=== PATIENT | male | born 1925 | race Caucasian/White ===

== ENCOUNTER → 2016-07-17 | Outpatient (CLI) | payer MEDICARE ==
--- NOTE | 2016-07-17 11:55 | US ---
EXAMINATION TYPE: US venous doppler duplex LE LT DATE OF EXAM: 07/17/2016 11:41 AM COMPARISON: NONE CLINICAL HISTORY: R60.9 EDEMA. Edema left ankle SIDE PERFORMED: Left TECHNIQUE: The lower extremity deep venous system is examined utilizing real time linear array sonog jordon with graded compression, doppler sonography and color-flow sonography. VESSELS IMAGED: External Iliac Vein (EIV) Common Femoral Vein Deep Femoral Vein Greater Saphenous Vein * Femoral Vein Popliteal Vein Small Saphenous Vein * Proximal Calf Veins (* superficial vessels) Left Leg: Negative for DVT. Large amount of plaque noted in arteries. IMPRESSION: 1. No diagnostic evidence of DVT. 2. Findings suggest atherosclerotic disease of the visualized arterial system which is limited. Corre late clinically and with arterial ultrasound as clinically warranted.
== END ==
LOC: RADUSWWP 10:28
PROVIDERS: ATTEND Family Medicine
DX: R60.9 Edema, unspecified (principal)

== ENCOUNTER 2016-12-23 08:38 | Emergency (ER) | payer MEDICARE ==
[2016-12-23 08:53] VITALS: TEMP 97.1
--- NOTE | 2016-12-23 09:14 | ED ---
Fall HPI - General Chief Complaint: Fall Stated Complaint: Fall Time Seen by Provider: 12/23/16 08:55 Source: patient, family, RN notes reviewed Mode of arrival: wheelchair Limitations: no limitations - History of Present Illness Initial Comments: This a 89-year-old male presents emergency Department with chief complaint of fall, left rib pain. Patient states he fell on Sunday and fell onto a chair. Patient states that he is able to get up on his own he had no head injury no LOC. Patient states he did not have much pain at seem to bother him and he fell use just sore because he initially fell. Patient states that same pain since Sunday so he figured he should have some x-rays. Patient denies chest pain, shortness breath, headache or dizziness. Patient states that he has trouble with his ambulation normally and states frequent falls are usual for him. - Related Data Home Medications Medication Instructions Recorded Confirmed Aspirin 325 mg PO DAILY 06/11/13 07/05/15 Metoprolol Tartrate [Lopressor] 50 mg PO DAILY 06/11/13 07/05/15 Simvastatin [Zocor] 80 mg PO HS 06/11/13 07/05/15 Tamsulosin [Flomax] 0.4 mg PO DAILY 06/11/13 07/05/15 Previous Rx's Medication Instructions Recorded traMADol HCl [Ultram] 50 mg PO Q6H PRN #20 tab 12/23/16 Allergies Allergy/AdvReac Type Severity Reaction Status Date / Time No Known Allergies Allergy Verified 12/23/16 08:52 Review of Systems ROS Statement: Those systems with pertinent positive or pertinent negative responses have been documented in the HPI. ROS Other: All systems not noted in ROS Statement are negative. Past Medical History Past Medical History: Atrial Fibrillation, Hypertension, Myocardial Infarction ( [place]) History of Any Multi-Drug Resistant Organisms: None Reported Past Surgical History: Heart Catheterization, Tonsillectomy Additional Past Surgical History / Comment(s): aortic repair Past Psychological History: No Psychological Hx Reported Smoking Status: Former smoker Past Alcohol Use History: Occasional Past Drug Use History: None Reported General Exam Limitations: no limitations General appearance: alert, in no apparent distress Head exam: Present: atraumatic, normocephalic, normal inspection Neck exam: Present: normal inspection, full ROM. Absent: tenderness, meningismus, lymphadenopathy Respiratory exam: Present: normal lung sounds bilaterally, chest wall tenderness (Mild tenderness to the left anterior lateral ribs). Absent: respiratory distress, wheezes, rales, rhonchi, stridor Cardiovascular Exam: Present: regular rate, normal rhythm, normal heart sounds. Absent: systolic murmur, diastolic murmur, rubs, gallop, clicks GI/Abdominal exam: Present: soft, normal bowel sounds. Absent: distended, tenderness, guarding, rebound, rigid Course Vital Signs 12/23/16 08:44 Temperature 97.1 F L Pulse Rate 47 L Respiratory 16 Rate Blood Pressure 165/70 O2 Sat by Pulse 99 Oximetry Medical Decision Making - Medical Decision Making 89-year-old male presented for a fall. X-ray does not show an acute fracture. Patient is comfortable with discharge at this time. Return parameters were discussed. Disposition Clinical Impression: Fall, Contusion of rib on left side Disposition: HOME SELF-CARE Condition: Stable Instructions: Rib Contusion (ED) Additional Instructions: Please return to the Emergency Department if symptoms worsen or any other concerns. Prescriptions: traMADol HCl [Ultram] 50 mg PO Q6H PRN #20 tab PRN Reason: Pain Referrals: Franklin Ruano MD [Primary Care Provider] - 1-2 days Time of Disposition: 10:15
--- NOTE | 2016-12-23 09:36 | XR ---
EXAMINATION TYPE: XR ribs LT w pa chest x-ray , 5 VIEWS DATE OF EXAM ORDERED: 12/23/2016 HISTORY: Pain. COMPARISON: Previous chest x-ray dated 05/12/2013. FINDINGS: The heart is mildly prominent. There are senescent changes throughout the lungs. There is no pneumonia or edema. No definite pleural fluid is seen. There hypertrophic changes in the left AC joint. No displaced rib fracture is seen. No pneumothorax i s evident. IMPRESSION: 1. MILD CARDIOMEGALY. 2. I DO NOT SEE EVIDENCE OF A DISPLACED RIB FRACTURE AT THIS TIME.
[2016-12-23 10:20] VITALS: BP 134/66; PULSE 52; RESP 15
== END 2016-12-23 10:23 | disposition home or self-care (01) ==
LOC: EC 08:38
DX: S20.212A Contusion of left front wall of thorax, initial encounter (principal); I48.91 Unspecified atrial fibrillation; I25.2 Old myocardial infarction; I10 Essential (primary) hypertension; Z87.891 Personal history of nicotine dependence; Z79.82 Long term (current) use of aspirin; Z79.899 Other long term (current) drug therapy; W07.XXXA Fall from chair, initial encounter
CPT/HCPCS: 99283

== ENCOUNTER 2017-04-14 08:56 | Inpatient (IN) | payer MEDICARE ==
[2017-04-14] MEDS ORDERED: ONDANSETRON 4 MG/2 ML VIAL IVP STA (09:00)
[2017-04-14] MEDS ORDERED: SODIUM CHLORIDE 0.9% 1,000 ML IV STA (09:00)
[2017-04-14] MEDS ORDERED: PANTOPRAZOLE 40 MG/10 ML VIAL IVP ONE (09:01)
--- NOTE | 2017-04-14 09:15 | ED ---
General Adult HPI - General Chief complaint: GI Bleed Stated complaint: GI Bleed Time Seen by Provider: 04/14/17 09:00 Source: patient, EMS, RN notes reviewed, old records reviewed Mode of arrival: EMS Limitations: no limitations - History of Present Illness Initial comments: 89-year-old male presents with vomiting. Patient had 3-4 episodes of vomiting prior to arrival. This was coffee ground. Patient has past medical history of congestive heart failure and atrial fibrillation. He has noted some worsening lower extremity swelling. He is also noted dark stools over the past several days. According to the patient he is not currently on any anticoagulation for his atrial fibrillation. He is taking aspirin, and naproxen for pain. No history of EtOH. Patient denies any chest pain or abdominal pain. Denies shortness of breath. Denies fever or chills. - Related Data Home Medications Medication Instructions Recorded Confirmed Aspirin 325 mg PO DAILY 06/11/13 07/05/15 Metoprolol Tartrate [Lopressor] 50 mg PO DAILY 06/11/13 07/05/15 Simvastatin [Zocor] 80 mg PO HS 06/11/13 07/05/15 Tamsulosin [Flomax] 0.4 mg PO DAILY 06/11/13 07/05/15 Previous Rx's Medication Instructions Recorded traMADol HCl [Ultram] 50 mg PO Q6H PRN #20 tab 12/23/16 Allergies Allergy/AdvReac Type Severity Reaction Status Date / Time No Known Allergies Allergy Verified 12/23/16 08:52 Review of Systems ROS Statement: Those systems with pertinent positive or pertinent negative responses have been documented in the HPI. ROS Other: All systems not noted in ROS Statement are negative. Past Medical History Past Medical History: Atrial Fibrillation, Hypertension, Myocardial Infarction ( [place]) History of Any Multi-Drug Resistant Organisms: None Reported Past Surgical History: Heart Catheterization, Tonsillectomy Additional Past Surgical History / Comment(s): aortic repair Past Psychological History: No Psychological Hx Reported Smoking Status: Former smoker Past Alcohol Use History: Occasional Past Drug Use History: None Reported General Exam Limitations: no limitations General appearance: alert, in no apparent distress Head exam: Present: atraumatic, normocephalic Eye exam: Present: normal appearance ENT exam: Present: normal exam, other (Dark vomit and oral cavity and LIPS) Neck exam: Present: normal inspection. Absent: tenderness, meningismus Respiratory exam: Present: normal lung sounds bilaterally. Absent: respiratory distress Cardiovascular Exam: Present: regular rate, irregular rhythm GI/Abdominal exam: Present: soft. Absent: distended, tenderness, guarding Rectal exam: Present: normal rectal tone, heme (+) stool, black stool Extremities exam: Present: pedal edema (2+) Back exam: Present: normal inspection, full ROM Neurological exam: Present: alert, oriented X3, CN II-XII intact. Absent: motor sensory deficit Psychiatric exam: Present: normal affect, normal mood Skin exam: Present: warm, dry, intact, pallor. Absent: cyanosis Course Vital Signs 04/14/17 04/14/17 04/14/17 09:04 09:39 10:08 Temperature 98.1 F Pulse Rate 60 71 89 Respiratory 20 18 18 Rate Blood Pressure 104/58 101/55 90/52 O2 Sat by Pulse 95 97 98 Oximetry 04/14/17 10:33 Temperature Pulse Rate 71 Respiratory 18 Rate Blood Pressure 84/48 O2 Sat by Pulse 97 Oximetry EKG Findings - EKG Comments: EKG Findings:: EKG shows undetermined rhythm, likely atrial fibrillation with PVC incomplete right bundle, ventricular rate of 88 QRS duration 112, QTC 445 Medical Decision Making - Medical Decision Making 89-year-old male presenting with coffee-ground emesis. Patient has melanotic stool on rectal exam. He is on aspirin and has been taking naproxen. On examination, patient is pale, blood pressure 85-95 systolic. Laboratory studies are obtained, initial hemoglobin 6.1, no baseline for comparison. She is transfused 2 units and given IV Protonix. Patient has significant laboratory abnormalities including lactic acidosis 5.3 likely secondary to hemorrhagic shock, BUN elevated at 108 consistent with GI bleed, creatinine of 2.87 with no known baseline for comparison. Although patient has borderline hypotensive, he is total body fluid overloaded, lactic acid secondary to hemorrhagic shock, IV hydration will be given in moderation, awaiting blood transfusion, to minimize dilution coagulopathy. Case is discussed with patient's primary care physician, Dr. Ruano and will evaluate records to determine CODE STATUS, at this time patient will be full code until otherwise noted. Case discussed with Dr. Iniguez, she recommends transfusion, continue Protonix, and NPO. Patient will be placed in the ICU for close observation, repeat hemoglobin will be obtained at [address] Paulette sheppard. Diagnosis: Suspect upper GI bleed, hematemesis, melena, lactic acidosis secondary to hemorrhagic shock, acute renal failure. - Lab Data Result diagrams: 04/14/17 09:00 04/14/17 09:00 Lab Results 04/14/17 04/14/17 04/14/17 Range/Units 09:00 09:00 09:00 WBC 10.3 (3.8-10.6) k/uL RBC 1.90 L (4.30-5.90) m/uL Hgb 6.1 L* (13.0-17.5) gm/dL Hct 18.7 L* (39.0-53.0) % MCV 98.8 (80.0-100.0) fL MCH 32.2 (25.0-35.0) pg MCHC 32.6 (31.0-37.0) g/dL RDW 15.6 H (11.5-15.5) % Plt Count 135 L (150-450) k/uL Neutrophils % 83 % Lymphocytes % 6 % Monocytes % 7 % Eosinophils % 0 % Basophils % 0 % Neutrophils # 8.6 H (1.3-7.7) k/uL Lymphocytes # 0.6 L (1.0-4.8) k/uL Monocytes # 0.8 (0-1.0) k/uL Eosinophils # 0.0 (0-0.7) k/uL Basophils # 0.0 (0-0.2) k/uL Macrocytosis Slight PT (9.0-12.0) sec INR (<1.2) APTT (22.0-30.0) sec Sodium 144 (137-145) mmol/L Potassium 4.9 (3.5-5.1) mmol/L Chloride 105 (98-107) mmol/L Carbon Dioxide 23 (22-30) mmol/L Anion Gap 16 mmol/L BUN 108 H* (9-20) mg/dL Creatinine 2.87 H (0.66-1.25) mg/dL Est GFR (CKD-EPI)AfAm 22 (>60 ml/min/1.73 sqM) Est GFR (CKD-EPI)NonAf 19 (>60 ml/min/1.73 sqM) Glucose 119 H (74-99) mg/dL Plasma Lactic Acid Robin (0.7-2.0) mmol/L Calcium 9.1 (8.4-10.2) mg/dL Magnesium 2.1 (1.6-2.3) mg/dL Total Bilirubin 0.5 (0.2-1.3) mg/dL AST 24 (17-59) U/L ALT 31 (21-72) U/L Alkaline Phosphatase 65 (38-126) U/L Total Creatine Kinase 96 (55-170) U/L CK-MB (CK-2) 3.9 H* (0.0-2.4) ng/mL CK-MB (CK-2) Rel Index 4.1 Troponin I 0.038 H* (0.000-0.034) ng/mL Total Protein 5.2 L (6.3-8.2) g/dL Albumin 2.6 L (3.5-5.0) g/dL Lipase 332 H (23-300) U/L Stool Occult Blood (Negative) 04/14/17 04/14/17 04/14/17 Range/Units 09:00 09:00 09:00 WBC (3.8-10.6) k/uL RBC (4.30-5.90) m/uL Hgb (13.0-17.5) gm/dL Hct (39.0-53.0) % MCV (80.0-100.0) fL MCH (25.0-35.0) pg MCHC (31.0-37.0) g/dL RDW (11.5-15.5) % Plt Count (150-450) k/uL Neutrophils % % Lymphocytes % % Monocytes % % Eosinophils % % Basophils % % Neutrophils # (1.3-7.7) k/uL Lymphocytes # (1.0-4.8) k/uL Monocytes # (0-1.0) k/uL Eosinophils # (0-0.7) k/uL Basophils # (0-0.2) k/uL Macrocytosis PT 12.1 H (9.0-12.0) sec INR 1.3 H (<1.2) APTT 21.5 L (22.0-30.0) sec Sodium (137-145) mmol/L Potassium (3.5-5.1) mmol/L Chloride (98-107) mmol/L Carbon Dioxide (22-30) mmol/L Anion Gap mmol/L BUN (9-20) mg/dL Creatinine (0.66-1.25) mg/dL Est GFR (CKD-EPI)AfAm (>60 ml/min/1.73 sqM) Est GFR (CKD-EPI)NonAf (>60 ml/min/1.73 sqM) Glucose (74-99) mg/dL Plasma Lactic Acid Robin 5.3 H* (0.7-2.0) mmol/L Calcium (8.4-10.2) mg/dL Magnesium (1.6-2.3) mg/dL Total Bilirubin (0.2-1.3) mg/dL AST (17-59) U/L ALT (21-72) U/L Alkaline Phosphatase (38-126) U/L Total Creatine Kinase (55-170) U/L CK-MB (CK-2) (0.0-2.4) ng/mL CK-MB (CK-2) Rel Index Troponin I (0.000-0.034) ng/mL Total Protein (6.3-8.2) g/dL Albumin (3.5-5.0) g/dL Lipase (23-300) U/L Stool Occult Blood Positive (Negative) Critical Care Time Critical Care Time: Yes Total Critical Care Time: 95 Disposition Clinical Impression: Melena, Gastrointestinal hemorrhage due to nonsteroidal antiinflammatory drug, Hemorrhagic shock, Lactic acidosis Disposition: ADMITTED IP TO THIS [facility] Condition: Serious Referrals: Franklin Ruano MD [Primary Care Provider] - 1-2 days Decision to Admit Reason: Admit from EC Decision Date: 04/14/17 Decision Time: 10:39
[2017-04-14 09:32] LABS: Basophils % (A) 0 %; Eosinophils % (A) 0 %; Lymphocytes # (A) 0.6 k/uL (1.0-4.8); Lymphocytes % (A) 6 %; MCH 32.2 pg (25.0-35.0); MCHC 32.6 g/dL (31.0-37.0); MCV 98.8 fL (80.0-100.0); Macrocytosis Slight; Mean Platelet Volume 10.8; Monocytes # (A) 0.8 k/uL (0-1.0); Monocytes % (A) 7 %; Neutrophils # (A) 8.6 k/uL (1.3-7.7); Neutrophils % (A) 83 %; Platelet Count 135 k/uL (150-450); RDW 15.6 % (11.5-15.5); WBC 10.3 k/uL (3.8-10.6)
[2017-04-14 09:34] LABS: HCT 18.7 % (39.0-53.0); HGB 6.1 gm/dL (13.0-17.5)
--- NOTE | 2017-04-14 09:46 | XR ---
EXAMINATION TYPE: XR chest 1V portable DATE OF EXAM: 04/14/2017 COMPARISON: Chest x-ray December 23, 2016. HISTORY: Hemoptysis and chest pain. TECHNIQUE: Single AP portable frontal upright view of the chest is obtained. FINDINGS: There is chronic interstitial changes bilaterally redemonstrated without suspicious new fo georgie air space opacity, pleural effusion, or pneumothorax seen. The cardiac silhouette size is stable and upper limits of normal without sclerotic and ectatic thoracic aorta. Multilevel spurring and dis c space narrowing in the visualized spine is present. Degenerative change both shoulders is redemonst rated. IMPRESSION: Low lung volumes with chronic interstitial fibrosis bilaterally. No suspicious acute pu lmonary process.
[2017-04-14 09:51] LABS: INR 1.3 (<1.2); Partial Thromboplastin Time 21.5 sec (22.0-30.0); Prothrombin Time 12.1 sec (9.0-12.0)
[2017-04-14 10:16] LABS: Albumin 2.6 g/dL (3.5-5.0); Calcium 9.1 mg/dL (8.4-10.2); Magnesium 2.1 mg/dL (1.6-2.3); Potassium 4.9 mmol/L (3.5-5.1); Total Bilirubin 0.5 mg/dL (0.2-1.3); Total Protein 5.2 g/dL (6.3-8.2)
[2017-04-14 10:28] LABS: Creatine Kinase MB 3.9 ng/mL (0.0-2.4); Troponin I 0.038 ng/mL (0.000-0.034)
[2017-04-14] MEDS ORDERED: NALOXONE 0.4 MG/ML 1 ML VIAL IV PRN (10:28)
[2017-04-14 11:30] LABS: Basophils % (A) 0 %; Eosinophils % (A) 0 %; Lymphocytes # (A) 0.6 k/uL (1.0-4.8); Lymphocytes % (A) 6 %; MCHC 32.2 g/dL (31.0-37.0); MCV 99.6 fL (80.0-100.0); Macrocytosis Slight; Mean Platelet Volume 10.5; Monocytes # (A) 0.6 k/uL (0-1.0); Monocytes % (A) 6 %; Neutrophils # (A) 8.3 k/uL (1.3-7.7); Neutrophils % (A) 86 %; Platelet Count 119 k/uL (150-450); RBC 1.63 m/uL (4.30-5.90); RDW 15.9 % (11.5-15.5); WBC 9.7 k/uL (3.8-10.6)
[2017-04-14 11:31] LABS: HCT 16.3 % (39.0-53.0); HGB 5.2 gm/dL (13.0-17.5)
--- NOTE | 2017-04-14 13:33 | CONS ---
CONSULTATION REQUESTING PHYSICIAN: Dr. Ruano REASON FOR CONSULTATION: Acute GI bleed. HISTORY OF PRESENT ILLNESS: The patient is an 89-year-old white male who was admitted to the emergency room complaining of multiple episodes of coffee-ground emesis that started early this morning. He became extremely weak and tired. He came into the emergency room and subsequently admitted to the intensive care unit. He was presently on hold in ICU. He also apparently had some dark colored stools for the last few days. In the ER, had a hemoglobin of 6.1 g/dL. He never had these symptoms in the past. He reports no abdominal pain. No nausea, vomiting. Has been taking aspirin and naproxen for degenerative joint disease. No prior history of peptic ulcer disease. PAST MEDICAL HISTORY: Significant for atrial fibrillation but not on anticoagulation, history of hypertension, history of coronary artery disease, status post IN in the past. PAST SURGICAL HISTORY: Tonsillectomy, cardiac catheterization. MEDICATIONS: At home include aspirin, Zocor, Flomax, Lopressor, naproxen. ALLERGIES: None. SOCIAL HISTORY: Former smoker. No alcohol use. FAMILY HISTORY: Unremarkable. REVIEW OF SYSTEMS: CARDIOPULMONARY: He denies any chest pain or shortness of breath. GENITOURINARY: No dysuria or hematuria. MUSCULOSKELETAL: Chronic back pain. NEUROLOGY: Unremarkable. PSYCHIATRIC: Unremarkable. ENT/VISION: Unremarkable. CONSTITUTIONAL: No recent weight loss. No fever, chills, night sweats. PHYSICAL EXAMINATION: He appears comfortable. No apparent distress. Vital signs are stable. Blood pressure is 90/52, pulse rate 89, temperature 98.8. HEENT: Examination unremarkable. Conjunctivae pink. Sclerae anicteric. Oral cavity no lesions. NECK: No JVD or lymph node enlargement. Chest was clear to auscultation. HEART: Regular rate and rhythm. Abdomen is soft. It was nontender, nondistended. Midline scar noted from abdominal aortic aneurysm repair many years ago. EXTREMITIES: No pedal edema. SKIN: No rashes. NEURO: He is alert and oriented x3. No focal deficits. LAB: WBC was 10.3, hemoglobin 6.1, and repeat hemoglobin is 5.2, platelets 135. INR 1.3. AST and ALT within normal limits. BUN is 108, creatinine 2.87. Lactic acid is 5.3. Troponin 0.03. IMPRESSION: 1. The patient presents with multiple episodes of coffee-ground emesis and dark colored stools for the last few days duration. He is noted to have a hemoglobin of 5.1 g/dL. He has been taking naproxen for the last 6 months for degenerative joint disease, most likely we are dealing with peptic ulcer disease. 2. History of abdominal aortic aneurysm repair several years ago. 3. History of atrial fibrillation on aspirin, which is currently on hold. RECOMMENDATIONS: 1. Agree with blood transfusion. 2. IV Protonix 40 mg q.12 hours. 3. Keep him n.p.o. 4. We will plan on proceeding with an upper endoscopy tomorrow morning unless he has numbness is symptoms worsen and we will consider doing it on an emergency basis. 5. CBC every 6 hours and follow him closely during his hospital stay. Thank you for this consultation. MARIXA / TRINITY: [id number] /
[2017-04-14] MEDS ORDERED: SODIUM CHLORIDE 0.9% 1,000 ML IV ONE ×2 (13:52→17:48)
[2017-04-14 14:21] LABS: Hypochromasia Slight; MCH 31.4 pg (25.0-35.0); MCHC 30.9 g/dL (31.0-37.0); MCV 101.6 fL (80.0-100.0); Macrocytosis Slight; Mean Platelet Volume 11.5; Platelet Count 107 k/uL (150-450); RBC 1.49 m/uL (4.30-5.90); RDW 15.9 % (11.5-15.5); WBC 10.9 k/uL (3.8-10.6)
[2017-04-14 14:24] LABS: HGB 4.7 gm/dL (13.0-17.5)
[2017-04-14 14:25] LABS: HCT 15.2 % (39.0-53.0)
--- NOTE | 2017-04-14 14:25 | HP ---
HISTORY AND PHYSICAL CHIEF COMPLAINT: Throwing up blood for several hours. HISTORY OF PRESENT ILLNESS: This is another admission for this 89-year-old white male. He has a long-standing history of hypertension and general debility and failure to thrive. He was in the office earlier this week with some increased swelling and pallor. He has had mild renal failure, and his BUN and creatinine were elevated and he was anemic. He was started on diuretics, but apparently he did not diurese a great deal. His left for a vacation in [place] and he got up this morning and started throwing up blood. He has also had melena. He came to the emergency room, where his hemoglobin was around 5. He is compos mentis, but at the present time he is a little bit lethargic. He denies pain. REVIEW OF SYSTEMS: He is not having any chest pain, abdominal pain, etc. Past medical history, family history, and personal and social histories reveal that he has NO ALLERGIES. He is on: 1. Lasix 40 mg daily. 2. Amlodipine 5 mg daily. 3. Atorvastatin 80 at bedtime. 4. Aspirin 81 mg a day. 5. Flomax 0.4 once a day. 6. Vitamin D 1000 units a day. He has had a past history of carcinoma of the prostate and coronary artery disease. He also has a history of atrial fibrillation. Surgically in the past he has had an aortic repair, lithotripsy and a T&A. He does not smoke or drink. PHYSICAL EXAMINATION: At the present time his systolic is 102. When he came in he was running a systolic of 80. Pulse is 72 and respirations are 32. In general he appeared to be pale and slightly lethargic, but oriented. Head, ears, eyes, nose, mouth and throat were normal except for some blood in the mouth. Chest demonstrated breath sounds on both sides. Cardiac exam demonstrated what sounded like sinus rhythm; no murmurs. S3 or S4 could not be heard. Abdomen is soft and nontender without any masses. Extremities demonstrated mild edema. Neurologically, other than being a little bit lethargic, he is intact. He is admitted to the hospital with the diagnoses: 1. Upper gastrointestinal hemorrhage. 2. Blood loss anemia. 3. Renal failure. 4. Hypertension. 5. Carcinoma of the prostate. 6. Lactic acidosis. PLAN: 1. Bed rest. 2. IV fluids. 3. Transfuse. 4. Consult with Intensive Medicine and Gastroenterology. 5. Our office records indicated that he wanted to be DNR, but when approached today he stated, "Let's wait until my gets back into town.". MARIXA / TRINITY: [id number] /
[2017-04-14 17:09] LABS: Glucose,Whole Blood 149 mg/dL (75-99)
--- NOTE | 2017-04-14 17:16 | P.CNPUL ---
History of Present Illness Consult date: 04/14/17 Chief complaint: Upper GI bleeding History of present illness: 89-year-old male patient, known history of congestion heart failure, chronic renal failure, chronic atrial fibrillation who has been taking aspirin and nonsteroidal anti-inflammatory medication outpatient basis. The patient came into the emergency department with episodes of hematemesis and the patient vomited bright red blood around 3-4 times prior to his arrival. In the emergency department he had 2-3 more episodes. The patient was taken apparently aspirin and Naprosyn. He is denying any previous history of alcoholism. He admitted to have some dark stools over the past few days. No chest pain. No syncope. He was feeling increasingly weak and tired. He has chronic lower extremity edema. No previous episodes of GI bleed. The patient was seen in the MRSA problem by gastroenterology. His initial hemoglobin was 6.1 and subsequently dropped down to 4.7. His platelet count was at 135 and dropped to 107. Correlation profile is within normal. The patient is prerenal with a BUN of 108 and creatinine of 2.8. Lipase level was apparently on 32. Lactic acid level was at 5.3 and is currently down to 2.8. Blood was ordered however there has been difficulty in obtaining the right match due to blood compatibility. Ultimately, 2 units of packed RBC were found to be available and the patient is currently getting his first unit. He got moved to the intensive care unit. He is also on IV fluids. [facility] that the patient may get overloaded with fluids. He was placed only on 75 mL an hour. I'm going to give him at least 2-3 L of bolus immediately in the ICU. He was tachycardic in the MRSA problem and the heart rate has slowed down. Most recent blood pressures 120/65. He has 2 peripheral IV lines. The patient was kept on IV Protonix. He is known to have also abdominal aortic aneurysm that has been repaired many years back. He has chronic atrial fibrillation as mentioned. Review of Systems Constitutional: Reports fatigue, Reports weakness Eyes: denies blurred vision, denies bulging eye, denies decreased vision Ears: deny: decreased hearing, ear discharge, earache Ears, nose, mouth and throat: Reports as per HPI Cardiovascular: Reports decreased exercise tolerance, Reports dyspnea on exertion, Reports rapid heart beat Respiratory: Reports dyspnea Gastrointestinal: Reports hematemesis, Reports melena Genitourinary: Reports as per HPI Musculoskeletal: Reports as per HPI Musculoskeletal: absent: ankle pain, ankle stiffness, ankle swelling Integumentary: Denies pruritus, Denies rash Neurological: Reports weakness, Denies numbness Psychiatric: Denies anxiety, Denies depression Endocrine: Denies fatigue, Denies weight change Past Medical History Past Medical History: Atrial Fibrillation, Hypertension, Myocardial Infarction ( PR) Additional Past Medical History / Comment(s): Chronic renal failure, chronic atrial fibrillation, hypertension, coronary artery disease and previous myocardial infarction, abdominal aortic and was in the has not appearance, atherosclerosis with peripheral vascular disease, COPD, dementia, BPH, hyperlipidemia, prostate cancer History of Any Multi-Drug Resistant Organisms: None Reported Past Surgical History: Heart Catheterization, Tonsillectomy Additional Past Surgical History / Comment(s): Repair of abdominal aortic aneurysm, previous history of right femoral endarterectomy, Past Psychological History: No Psychological Hx Reported Smoking Status: Former smoker Past Alcohol Use History: Occasional Past Drug Use History: None Reported Medications and Allergies Home Medications Medication Instructions Recorded Confirmed Type Tamsulosin [Flomax] 0.4 mg PO DAILY 06/11/13 04/14/17 History Aspirin EC [Ecotrin Low Dose] 81 mg PO DAILY 04/14/17 04/14/17 History Atorvastatin [Lipitor] 80 mg PO DAILY 04/14/17 04/14/17 History Furosemide [Lasix] 40 mg PO DAILY 04/14/17 04/14/17 History Naproxen 500 mg PO BID PRN 04/14/17 04/14/17 History amLODIPine [Norvasc] 5 mg PO DAILY 04/14/17 04/14/17 History Allergies Allergy/AdvReac Type Severity Reaction Status Date / Time No Known Allergies Allergy Verified 04/14/17 10:35 Physical Exam Vitals: Vital Signs Temp Pulse Resp BP Pulse Ox 04/14/17 16:30 96.9 F L 87 18 120/65 97 04/14/17 16:00 96.9 F L 83 18 133/74 97 04/14/17 15:50 96.9 F L 89 16 126/58 97 04/14/17 15:40 96.7 F L 71 18 115/67 97 04/14/17 15:30 96.6 F L 81 16 111/57 97 04/14/17 15:15 96.5 F L 64 18 94/50 97 04/14/17 14:45 96.0 F L 71 18 85/48 96 04/14/17 14:30 95.5 F L 89 18 84/47 97 04/14/17 14:15 95.2 F L 83 18 115/56 97 04/14/17 14:05 94.7 F L 85 20 95/62 99 04/14/17 13:52 91 18 122/55 97 04/14/17 13:16 89 18 109/82 99 04/14/17 12:26 97.7 F 90 16 113/53 97 04/14/17 11:44 82 16 108/57 97 04/14/17 10:53 96 18 103/49 97 04/14/17 10:40 81 18 90/57 97 04/14/17 10:33 71 18 84/48 97 04/14/17 10:08 89 18 90/52 98 04/14/17 09:39 71 18 101/55 97 04/14/17 09:04 98.1 F 60 20 104/58 95 Intake and Output 04/14/17 04/14/17 04/14/17 06:59 14:59 22:59 Intake Total 0 620 Balance 0 620 Intake: Blood Product 0 620 Rc As-1 Unit 0 310 [id number] Rc As-1 Unit 310 [id number] Other: Weight 86.183 kg Patient Weight 04/15/17 07:59 Weight 86.183 kg Elderly male patient in mild degree of respiratory distress also quite uncomfortable as the patient was having episodes of hematemesis in the emergency department. He does not have an NG tube in place.Head exam was generally normal. There was no scleral icterus or corneal arcus. Mucous membranes were moist. Neck is short and the patient is significant crowding of posterior pharynx. Some old dried up blood is present in his mouth. Poor dentition and dental condition.Lungs were clear to auscultation and percussion, and with normal diaphragmatic excursion. No wheezes or rales were noted. Overall breath sounds are diminished bilaterally. Heart sounds are irregular consistent with atrial fibrillation. Positive S1 and S2 and there is no significant murmurs appreciated.Abdominal exam revealed normal bowel sounds. The abdomen was soft, non-tender, and without masses, organomegaly, or appreciable enlargement of the abdominal aorta. Extremities reveal +1 edema and there is no cyanosis or clubbing. Pulses are diminished.Examination of the skin revealed no evidence of significant rashes, suspicious appearing nevi or other concerning lesions. Neurologically the patient is moving all 4 extremities and his neurologic exam is nonfocal. Results - Laboratory Findings CBC and BMP: 04/14/17 14:01 04/14/17 09:00 PT/INR, D-dimer PT 12.1 sec (9.0-12.0) H 04/14/17 09:00 INR 1.3 (<1.2) H 04/14/17 09:00 Abnormal lab findings: Abnormal Labs 04/14/17 04/14/17 04/14/17 09:00 09:00 09:00 WBC RBC 1.90 L Hgb 6.1 L* Hct 18.7 L* MCV MCHC RDW 15.6 H Plt Count 135 L Neutrophils # 8.6 H Lymphocytes # 0.6 L PT INR APTT BUN 108 H* Creatinine 2.87 H Glucose 119 H Plasma Lactic Acid Robin CK-MB (CK-2) 3.9 H* Troponin I 0.038 H* Total Protein 5.2 L Albumin 2.6 L Lipase 332 H Crossmatch 04/14/17 04/14/17 04/14/17 09:00 09:00 11:05 WBC RBC 1.63 L Hgb 5.2 L* Hct 16.3 L* MCV MCHC RDW 15.9 H Plt Count 119 L Neutrophils # 8.3 H Lymphocytes # 0.6 L PT 12.1 H INR 1.3 H APTT 21.5 L BUN Creatinine Glucose Plasma Lactic Acid Robin 5.3 H* CK-MB (CK-2) Troponin I Total Protein Albumin Lipase Crossmatch 04/14/17 04/14/17 04/14/17 11:28 14:01 14:01 WBC 10.9 H RBC 1.49 L Hgb 4.7 L* Hct 15.2 L* MCV 101.6 H MCHC 30.9 L RDW 15.9 H Plt Count 107 L Neutrophils # Lymphocytes # PT INR APTT BUN Creatinine Glucose Plasma Lactic Acid Robin 2.8 H* CK-MB (CK-2) Troponin I Total Protein Albumin Lipase Crossmatch See Detail Assessment and Plan Plan: Assessment 1 acute upper GI bleeding, rule out peptic ulcer disease, rule out gastritis, rule out duodenal/gastric ulcer with secondary bleeding specially the patient has been taken a combination of aspirin and nonsteroidal anti-inflammatory medication. Correlation profile is within normal limits. 2 profound anemia secondary to GI related blood loss. 3 acute kidney injury, secondary to intravascular volume depletion. The patient probably has an underlying chronic renal failure in addition and the baseline creatinine is not known to me at this point 4 chronic atrial fibrillation 5 COPD 6 peripheral vascular disease 7 BPH 8 coronary artery disease 9 hyperlipidemia 10 right bundle branch block pattern with frequent extrasystoles Plan Admit this patient to the intensive care unit. We will attempt to insert an NG tube. Give 2 L of IV fluids stat. Continue with packed RBC transfusion and the patient will be given 2 units and continue with additional 2 minutes of this is available and compatibilities of been matched. Meanwhile, the patient will be kept on IV Protonix. GI consultation has been obtained. The patient will need a EGD once he is adequately transfused and stabilized. If not, if his condition gets worse, the patient will need a stat EGD tonight. Meanwhile, keep the IV Protonix. Avoid nonsteroidal anti-inflammatory medications and aspirin. Monitor hemoglobin. Keep nothing by mouth for now. Establish IV access. We'll continue to follow. Condition is critical. CODE STATUS was thought to be DO NOT RESUSCITATE and this is to further confirm with the family.
[2017-04-14 18:14] LABS: Anisocytosis Slight; MCH 30.7 pg (25.0-35.0); MCHC 34.5 g/dL (31.0-37.0); Mean Platelet Volume 10.6; Poikilocytosis Slight; RBC 2.47 m/uL (4.30-5.90); RDW 17.4 % (11.5-15.5); WBC 17.8 k/uL (3.8-10.6)
[2017-04-14 18:15] LABS: HGB 7.6 gm/dL (13.0-17.5); MCV 89.2 fL (80.0-100.0)
[2017-04-14 18:23] LABS: Platelet Count 95 k/uL (150-450)
--- NOTE | 2017-04-14 18:57 | XR ---
EXAMINATION TYPE: XR chest 1V portable DATE OF EXAM: 04/14/2017 CLINICAL HISTORY: NG tube placement TECHNIQUE: Single AP portable frontal view of the chest is obtained. COMPARISON: Chest x-ray from earlier today. CTA aorta May 02, 2010. FINDINGS: There is new nasogastric tube which has tortuous course projecting below diaphragm. There is chronic parenchymal change without new suspicious focal airspace opacity, pleural effusion, or pne umothorax seen bilaterally. There is stable cardiomegaly with atherosclerotic and ectatic thoracic ao rta. Osseous structures remain demineralized. Multilevel spurring in the spine is present. IMPRESSION: New nasogastric tube projects below left hemidiaphragm. Other findings stable as there is chronic parenchymal change and cardiomegaly without suspicious acute pulmonary process.
[2017-04-14] MEDS ORDERED: ONDANSETRON 4 MG/2 ML VIAL IVP PRN (21:04)
[2017-04-14] MEDS: PANTOPRAZOLE 40 MG/10 ML VIAL IVP SCH (22:31)
[2017-04-15 00:16] LABS: Anisocytosis Slight; Basophils % (A) 0 %; Eosinophils % (A) 0 %; HCT 21.5 % (39.0-53.0); HGB 7.1 gm/dL (13.0-17.5); Lymphocytes # (A) 0.6 k/uL (1.0-4.8); Lymphocytes % (A) 3 %; MCH 31.1 pg (25.0-35.0); MCHC 33.3 g/dL (31.0-37.0); MCV 93.3 fL (80.0-100.0); Mean Platelet Volume 10.7; Monocytes # (A) 0.9 k/uL (0-1.0); Monocytes % (A) 4 %; Neutrophils # (A) 19.3 k/uL (1.3-7.7); Neutrophils % (A) 92 %; Poikilocytosis Slight; RDW 17.5 % (11.5-15.5)
[2017-04-15 00:22] LABS: Platelet Count 81 k/uL (150-450)
[2017-04-15] MEDS ORDERED: FUROSEMIDE 10 MG/ML 4 ML VIAL IV PRN (01:26)
[2017-04-15] MEDS: NOREPINEPHRIN 4 MG-0.9% NS PMX 4 MG/250 ML ML IV SCH ×2 (03:20→07:11)
[2017-04-15 07:26] LABS: Anisocytosis Slight; Basophils % (A) 0 %; Eosinophils % (A) 0 %; HCT 26.6 % (39.0-53.0); Lymphocytes # (A) 0.7 k/uL (1.0-4.8); Lymphocytes % (A) 3 %; MCH 31.4 pg (25.0-35.0); MCHC 34.7 g/dL (31.0-37.0); MCV 90.5 fL (80.0-100.0); Mean Platelet Volume 10.8; Monocytes # (A) 0.8 k/uL (0-1.0); Monocytes % (A) 4 %; Neutrophils # (A) 21.7 k/uL (1.3-7.7); Neutrophils % (A) 93 %; Platelet Count 84 k/uL (150-450); Poikilocytosis Slight; RBC 2.94 m/uL (4.30-5.90); RDW 16.4 % (11.5-15.5); WBC 23.4 k/uL (3.8-10.6)
[2017-04-15 07:29] LABS: Albumin 1.9 g/dL (3.5-5.0); Magnesium 1.9 mg/dL (1.6-2.3); Phosphorus 5.2 mg/dL (2.5-4.5); Potassium 4.7 mmol/L (3.5-5.1)
[2017-04-15 07:30] LABS: HGB 9.3 gm/dL (13.0-17.5)
[2017-04-15] MEDS ORDERED: MIDAZOLAM 2 MG/2 ML VIAL ONE (08:05)
[2017-04-15] MEDS ORDERED: PHENYLEPHRINE-0.9% NACL SYG 1 MG/10 ML SYRINGE ONE (08:05)
[2017-04-15] MEDS ORDERED: IV FLUID CONTINUATION 1,000 ML IV ONE (08:23)
[2017-04-15] MEDS ORDERED: PROPOFOL 100 ML IV ONE (08:31)
[2017-04-15] MEDS: SODIUM CHLORIDE 0.9% 1,000 ML IV SCH ×2 (09:00→21:36)
--- NOTE | 2017-04-15 09:29 | XR ---
EXAMINATION TYPE: XR chest 1V portable DATE OF EXAM: 04/15/2017 CLINICAL HISTORY: Difficulty breathing had to be intubated. Central line placement. TECHNIQUE: Single AP portable semiupright view of the chest is obtained. COMPARISON: Chest x-ray from one day earlier and older studies FINDINGS: There is new left subclavian central venous catheter with tip in SVC. There is new endotra cheal tube with tip at aortic knob level, approximately 4 cm above the saul. Nasogastric tube is stable in appearance. There is chronic parenchymal change without new suspicious focal airspace opacity, pleural effusion, or pneumothorax seen bilaterally. There is stable cardiomeg tona with atherosclerotic and ectatic thoracic aorta. Osseous structures remain demineralized. High ri ding humeral heads bilaterally suggest chronic rotator cuff tears. IMPRESSION: 1. New endotracheal tube is satisfactory in position. 2. New left subclavian central venous catheter with tip in SVC. No evidence of pneumothorax. 3. Chronic parenchymal change and mild cardiomegaly redemonstrated without new suspicious acute pulmo nary process.
[2017-04-15 09:32] LABS: ABG Base Excess -6.7 mmol/L; ABG HCO3 18 mmol/L (21-25); ABG Oxygen Saturation 99.1 % (94-97); ABG PCO2 36 mmHg (35-45); ABG PH 7.32 (7.35-7.45); ABG PO2 >420 mmHg (83-108)
--- NOTE | 2017-04-15 09:40 | P.PN ---
Subjective Progress Note Date: 04/15/17 89-year-old male patient, known history of congestion heart failure, chronic renal failure, chronic atrial fibrillation who has been taking aspirin and nonsteroidal anti-inflammatory medication outpatient basis. The patient came into the emergency department with episodes of hematemesis and the patient vomited bright red blood around 3-4 times prior to his arrival. In the emergency department he had 2-3 more episodes. The patient was taken apparently aspirin and Naprosyn. He is denying any previous history of alcoholism. He admitted to have some dark stools over the past few days. No chest pain. No syncope. He was feeling increasingly weak and tired. He has chronic lower extremity edema. No previous episodes of GI bleed. The patient was seen in the MRSA problem by gastroenterology. His initial hemoglobin was 6.1 and subsequently dropped down to 4.7. His platelet count was at 135 and dropped to 107. Correlation profile is within normal. The patient is prerenal with a BUN of 108 and creatinine of 2.8. Lipase level was apparently on 32. Lactic acid level was at 5.3 and is currently down to 2.8. Blood was ordered however there has been difficulty in obtaining the right match due to blood compatibility. Ultimately, 2 units of packed RBC were found to be available and the patient is currently getting his first unit. He got moved to the intensive care unit. He is also on IV fluids. There was concern the [facility] that the patient may get overloaded with fluids. He was placed only on 75 mL an hour. I'm going to give him at least 2-3 L of bolus immediately in the ICU. He was tachycardic in the MRSA problem and the heart rate has slowed down. Most recent blood pressures 120/65. He has 2 peripheral IV lines. The patient was kept on IV Protonix. He is known to have also abdominal aortic aneurysm that has been repaired many years back. He has chronic atrial fibrillation as mentioned. On 04/15/2017, the patient is intensive care units. Note that overnight the patient continued to have episodes of upper GI bleed. NG tube was successfully inserted and the patient had a total of 200 mL of bloody drainage overnight. The patient was still throwing up blood episodically around the NG tube. GI was contacted on multiple occasions and ultimately this morning at around 7:30 AM preparations were done for EGD. By that time the patient was becoming more lethargic, short of breath, tachypneic and he was also developing significant hypoxemia with pulse ox dropped down to 84% while being on oxygen at 3 L/m nasal cannula. Note that overnight, the patient was given boluses of IV fluids and he received a total of 4 L of fluid bolus and he received a total of 5 units of packed RBC. With transfusion the hemoglobin came from as low as 4.7 up to 9.3. Nevertheless there was ongoing issues with bleeding and for that reason EGD was indicated. Based on his overall condition, I opted to intubate the patient to protect his airway. This was done and the intensive care unit without any major difficulties. Following that the patient was x-ray mechanical ventilator and currently the patient assist-control mode at the rate of 20, tidal volume 500 with FiO2 100% and PEEP of 5 and the blood gases still pending. I also inserted a triple lumen catheter in the left subclavian vein. Patient is currently on pressors and currently is on levo fed at the rate of 45 mics. Urine output is low. IV fluid is running at 75 and this will be increased up to 150 mL an hour. The patient is on Diprivan at 25 mics per KG per minute. Post intubation chest x-ray showed no evidence of any pulmonary edema. As such I suspect that the patient could've aspirated and the cracking is being Initiated is probably related to upper airway obstruction related to aspiration. In any rate, currently the patient is intubated and the blood gases are still pending for now. The patient is an 80 fibrillation rate is controlled for now. There is also drop in the plated count down to 84 and a platelet transfusion will also ordered. Renal function is improving and creatinine is down to 2.5. Actiq acid was at 2.8 and currently is down to 1. On today's blood work, the liver function tests within normal limits, the albumin is down to 1.9. Objective - Vital Signs Vital signs: Vital Signs Temp 96.6 F L 04/15/17 06:30 Pulse 82 04/15/17 07:00 Resp 22 04/15/17 07:00 BP 94/53 04/15/17 07:00 Pulse Ox 97 04/15/17 07:00 Intake & Output 04/14/17 04/15/17 04/15/17 17:59 06:59 18:59 Intake Total 175.5 Output Total Balance 175.5 Weight Intake: IV Sodium Chloride 0.9% 1, 000 ml @ 75 mls/hr IV . [id number] STA Rx#:[id number] Sodium Chloride 0.9% 1, 000 ml @ 999 mls/hr IV . Q1H1M ONE Rx#:[id number] Intake, IV Titration 175.5 Amount Norepinephrin 4 mg-0.9% 175.5 Ns Pmx 4 mg In 250 ml @ Titrate IV .Q0M [facility] Rx#: [id number] Blood Product Rc As-1 Unit [id number] Rc As-1 Unit [id number] Rc As-3 Unit [id number] Rc Pheresis As-3 Unit [id number] Rc Pheresis As-3 Unit [id number] Output: Gastric Drainage Urine Other: Voiding Method # Bowel Movements - Exam Gen. appearance the patient is currently intubated on mechanical ventilator and is calm and comfortable. He is an elderly male patient nonacute distress since is sedated. He is given orotracheal and orogastric tube in place. NG tube is still showing bright red blood which is being constantly suctioned at the lower rate for now. Overall suctioned volume is been around 200 mL. Orotracheal tube is in place. 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 Carotids were easily palpable bilaterally. There was no adenopathy. The patient has a subclavian triple-lumen catheter in the left subclavian. Lung sounds are diminished. There is set that scattered rhonchi heard throughout the lung de [place] bilaterally.Cardiac exam revealed the PMI to be normally situated and sized. The rhythm was irregular and no extrasystoles were noted during several minutes of auscultation. The first and second heart sounds were normal and physiologic splitting of the second heart sound was noted. There were no murmurs, rubs, clicks, or gallops.Abdominal exam revealed normal bowel sounds. The abdomen was soft, non-tender, and without masses, organomegaly, or appreciable enlargement of the abdominal aorta. Extremities show diminished pulses in the upper extremities, diminished pulses in the left femoral and adequate pulse on the right femoral. Lower extremities are somewhat cold and clammy at this point. Neurologically, the patient was moving all 4 extremities without any limitation. Currently sedated. He is to withdraw to painful stimuli. Pupils are equal and reactive to light. No focal neurological deficit. No facial asymmetry. - Labs CBC & Chem 7: 04/15/17 07:01 04/15/17 07:01 Labs: Abnormal Lab Results - Last 24 Hours (Table) 04/14/17 04/14/17 04/14/17 Range/Units 09:00 09:00 09:00 WBC (3.8-10.6) k/uL RBC 1.90 L (4.30-5.90) m/uL Hgb 6.1 L* (13.0-17.5) gm/dL Hct 18.7 L* (39.0-53.0) % MCV (80.0-100.0) fL MCHC (31.0-37.0) g/dL RDW 15.6 H (11.5-15.5) % Plt Count 135 L (150-450) k/uL Neutrophils # 8.6 H (1.3-7.7) k/uL Lymphocytes # 0.6 L (1.0-4.8) k/uL PT (9.0-12.0) sec INR (<1.2) APTT (22.0-30.0) sec Sodium (137-145) mmol/L Chloride (98-107) mmol/L BUN 108 H* (9-20) mg/dL Creatinine 2.87 H (0.66-1.25) mg/dL Glucose 119 H (74-99) mg/dL POC Glucose (mg/dL) (75-99) mg/dL Plasma Lactic Acid Robin (0.7-2.0) mmol/L Calcium (8.4-10.2) mg/dL Phosphorus (2.5-4.5) mg/dL CK-MB (CK-2) 3.9 H* (0.0-2.4) ng/mL Troponin I 0.038 H* (0.000-0.034) ng/mL Total Protein 5.2 L (6.3-8.2) g/dL Albumin 2.6 L (3.5-5.0) g/dL Lipase 332 H (23-300) U/L Crossmatch 04/14/17 04/14/17 04/14/17 Range/Units 09:00 09:00 11:05 WBC (3.8-10.6) k/uL RBC 1.63 L (4.30-5.90) m/uL Hgb 5.2 L* (13.0-17.5) gm/dL Hct 16.3 L* (39.0-53.0) % MCV (80.0-100.0) fL MCHC (31.0-37.0) g/dL RDW 15.9 H (11.5-15.5) % Plt Count 119 L (150-450) k/uL Neutrophils # 8.3 H (1.3-7.7) k/uL Lymphocytes # 0.6 L (1.0-4.8) k/uL PT 12.1 H (9.0-12.0) sec INR 1.3 H (<1.2) APTT 21.5 L (22.0-30.0) sec Sodium (137-145) mmol/L Chloride (98-107) mmol/L BUN (9-20) mg/dL Creatinine (0.66-1.25) mg/dL Glucose (74-99) mg/dL POC Glucose (mg/dL) (75-99) mg/dL Plasma Lactic Acid Robin 5.3 H* (0.7-2.0) mmol/L Calcium (8.4-10.2) mg/dL Phosphorus (2.5-4.5) mg/dL CK-MB (CK-2) (0.0-2.4) ng/mL Troponin I (0.000-0.034) ng/mL Total Protein (6.3-8.2) g/dL Albumin (3.5-5.0) g/dL Lipase (23-300) U/L Crossmatch 04/14/17 04/14/17 04/14/17 Range/Units 11:28 14:01 14:01 WBC 10.9 H (3.8-10.6) k/uL RBC 1.49 L (4.30-5.90) m/uL Hgb 4.7 L* (13.0-17.5) gm/dL Hct 15.2 L* (39.0-53.0) % MCV 101.6 H (80.0-100.0) fL MCHC 30.9 L (31.0-37.0) g/dL RDW 15.9 H (11.5-15.5) % Plt Count 107 L (150-450) k/uL Neutrophils # (1.3-7.7) k/uL Lymphocytes # (1.0-4.8) k/uL PT (9.0-12.0) sec INR (<1.2) APTT (22.0-30.0) sec Sodium (137-145) mmol/L Chloride (98-107) mmol/L BUN (9-20) mg/dL Creatinine (0.66-1.25) mg/dL Glucose (74-99) mg/dL POC Glucose (mg/dL) (75-99) mg/dL Plasma Lactic Acid Robin 2.8 H* (0.7-2.0) mmol/L Calcium (8.4-10.2) mg/dL Phosphorus (2.5-4.5) mg/dL CK-MB (CK-2) (0.0-2.4) ng/mL Troponin I (0.000-0.034) ng/mL Total Protein (6.3-8.2) g/dL Albumin (3.5-5.0) g/dL Lipase (23-300) U/L Crossmatch See Detail 04/14/17 04/14/17 04/14/17 Range/Units 17:08 17:59 23:51 WBC 17.8 H 21.0 H (3.8-10.6) k/uL RBC 2.47 L 2.30 L (4.30-5.90) m/uL Hgb 7.6 L D 7.1 L (13.0-17.5) gm/dL Hct 22.0 L 21.5 L (39.0-53.0) % MCV (80.0-100.0) fL MCHC (31.0-37.0) g/dL RDW 17.4 H 17.5 H (11.5-15.5) % Plt Count 95 L 81 L (150-450) k/uL Neutrophils # 19.3 H (1.3-7.7) k/uL Lymphocytes # 0.6 L (1.0-4.8) k/uL PT (9.0-12.0) sec INR (<1.2) APTT (22.0-30.0) sec Sodium (137-145) mmol/L Chloride (98-107) mmol/L BUN (9-20) mg/dL Creatinine (0.66-1.25) mg/dL Glucose (74-99) mg/dL POC Glucose (mg/dL) 149 H (75-99) mg/dL Plasma Lactic Acid Robin (0.7-2.0) mmol/L Calcium (8.4-10.2) mg/dL Phosphorus (2.5-4.5) mg/dL CK-MB (CK-2) (0.0-2.4) ng/mL Troponin I (0.000-0.034) ng/mL Total Protein (6.3-8.2) g/dL Albumin (3.5-5.0) g/dL Lipase (23-300) U/L Crossmatch 04/15/17 04/15/17 Range/Units 07:01 07:01 WBC 23.4 H (3.8-10.6) k/uL RBC 2.94 L (4.30-5.90) m/uL Hgb 9.3 L D (13.0-17.5) gm/dL Hct 26.6 L (39.0-53.0) % MCV (80.0-100.0) fL MCHC (31.0-37.0) g/dL RDW 16.4 H (11.5-15.5) % Plt Count 84 L (150-450) k/uL Neutrophils # 21.7 H (1.3-7.7) k/uL Lymphocytes # 0.7 L (1.0-4.8) k/uL PT (9.0-12.0) sec INR (<1.2) APTT (22.0-30.0) sec Sodium 146 H (137-145) mmol/L Chloride 115 H (98-107) mmol/L BUN 115 H* (9-20) mg/dL Creatinine 2.50 H (0.66-1.25) mg/dL Glucose 123 H (74-99) mg/dL POC Glucose (mg/dL) (75-99) mg/dL Plasma Lactic Acid Robin (0.7-2.0) mmol/L Calcium 8.0 L (8.4-10.2) mg/dL Phosphorus 5.2 H (2.5-4.5) mg/dL CK-MB (CK-2) (0.0-2.4) ng/mL Troponin I (0.000-0.034) ng/mL Total Protein 4.0 L (6.3-8.2) g/dL Albumin 1.9 L (3.5-5.0) g/dL Lipase (23-300) U/L Crossmatch Assessment and Plan Plan: Assessment 1 acute upper GI bleeding, rule out peptic ulcer disease, rule out gastritis, rule out duodenal/gastric ulcer with secondary bleeding specially the patient has been taken a combination of aspirin and nonsteroidal anti-inflammatory medication. On 04/15/2017, the patient is still bleeding actively. NG tube is in place. He has been resuscitated with IV fluids and received a total of 4 L of IV fluid and 5 units of packed RBC. Awaiting EGD. Hemodynamically he is condition has gotten worse. He became progressively hypotensive and he had to be placed on pressors and currently is on 45 mics of norepinephrine infusion. He is being given IV fluids. His most recent hemoglobin is at 9.3. Currently is intubated on a mechanical ventilator. There is a obvious possibility that the patient have aspirated which put him in significant respiratory distress and acute hypoxic respiratory failure. As such the patient was intubated and placed on a mechanical ventilation. Post intubation chest x-ray shows no evidence of pneumonia. Blood gases shows adequate oxygenation. 2 profound anemia secondary to GI related blood loss. Received a total of 4 units of packed RBC 3 acute kidney injury, secondary to intravascular volume depletion. The patient 's creatinine is improving and the creatinine is down to 2.5 4 acute hypoxic respiratory failure currently intubated on a mechanical ventilator, possible aspiration. Pneumonia is not seen on today's chest x-ray 5 COPD 6 peripheral vascular disease 7 BPH 8 coronary artery disease 9 hyperlipidemia 10 right bundle branch block pattern with frequent extrasystoles, with occasional A. fib rhythm 11 thrombocytopenia 12 leukocytosis Plan We'll continue with fluid resuscitation. Give the patient another bolus of IV fluid. He is a maintenance 150 mL an hour. Repeat hemoglobin. Discussed the case with gastroenterology and the patient will have any emergent EGD this morning. Currently intubated on mechanical ventilator. The blood gases now available and the patient's FiO2 will be dropped down to 50%. Breath of vent setting will be kept unchanged. Continue pressors. Keep the patient sedated. IV Protonix. He has had previous abdominal aortic aneurysm repair and based on EGD findings on the consider doing a CAT scan of the abdomen to make sure there is no complications or vascular complications related to the aneurysm itself. Hemoglobin is at 9.3. Platelet counts are 84 and I discussed the case with Dr. Brar. No need for platelet transfusion unit. We'll recheck the correlation profile. Keep the patient in ICU. Case was discussed with the son. We'll make further recommendations based on his progress. Critically care evaluation done in 40 minutes excluding time to do any procedures. Time with Patient: Greater than 30
[2017-04-15] MEDS ORDERED: NOREPINEPHRIN 4 MG-0.9% NS PMX 4 MG/250 ML ML IV ONE (09:50)
[2017-04-15 10:20] LABS: Anisocytosis Slight; Basophils % (A) 0 %; Eosinophils % (A) 0 %; Lymphocytes # (A) 0.5 k/uL (1.0-4.8); Lymphocytes % (A) 2 %; MCHC 33.7 g/dL (31.0-37.0); MCV 92.1 fL (80.0-100.0); Mean Platelet Volume 11.2; Monocytes # (A) 0.8 k/uL (0-1.0); Monocytes % (A) 4 %; Neutrophils # (A) 18.3 k/uL (1.3-7.7); Neutrophils % (A) 92 %; RBC 2.39 m/uL (4.30-5.90); RDW 16.5 % (11.5-15.5); WBC 19.8 k/uL (3.8-10.6)
[2017-04-15] MEDS ORDERED: EPINEPHrine 10 ML SYRINGE (0.1 MG/ML) MISCELLANE ONE (10:20)
[2017-04-15 10:25] LABS: HGB 7.4 gm/dL (13.0-17.5); Platelet Count 73 k/uL (150-450)
[2017-04-15 10:26] LABS: Albumin 1.5 g/dL (3.5-5.0); Calcium 7.2 mg/dL (8.4-10.2); Magnesium 1.7 mg/dL (1.6-2.3); Potassium 4.5 mmol/L (3.5-5.1); Total Bilirubin 0.6 mg/dL (0.2-1.3); Total Protein 3.4 g/dL (6.3-8.2)
--- NOTE | 2017-04-15 11:08 | P.PCN ---
Date of Procedure: 04/15/17 Procedure(s) Performed: BRIEF HISTORY: Patient is a 89-year-old, pleasant, white male came to the hospital yesterday morning with acute upper GI bleed. Initial hemoglobin was 5.1 g/dL. He was admitted to the intensive care unit. Over the night he started having significant amount of bleeding and a total of 5 units of blood in the last 24 hours. He scheduled for an upper endoscopy at the bedside. Just prior to the scope he became somewhat a candidate with labored breathing and patient had to be intubated and presently on the vent. He is also on Levophed to maintain blood pressure.. PROCEDURE PERFORMED: Esophagogastroduodenoscopy with injection epinephrine and Endo Clip placement. PREOPERATIVE DIAGNOSIS: Acute upper GI bleed. IV sedation per anesthesia. PROCEDURE: After informed consent was obtained, the procedure was performed in the intensive care unit at the bedside. Patient remains intubated. Initially the Olympus GIF-140 video endoscope was inserted into the mouth. Esophagus intubated without any difficulty. It was gradually advanced into the stomach and duodenum and carefully examined. The bulb and the second part of the duodenum appeared normal. There was large amount of fresh blood noted in the bulb of the duodenum and in the stomach and thorough irrigation was performed and all the clots where Slowly withdrawn. The scope at this time was withdrawn to the stomach, adequately insufflated with air, and upon careful examination, mucosa of the antrum, body, cardia and the fundus appeared normal. Once again there were large clots noted in the fundus of the stomach that were removed. No obvious bleeding noted in the stomach. The scope was then withdrawn into the esophagus. The GE junction was located at 40 cm from the incisors. There was a small hiatal hernia noted. There was a fresh clot hanging from the GE junction and it was gently able to push the clot out and subsequently was able to see fresh oozing from this area. Initially I injected 1 in 10,000 epinephrine and total of 10 mL was injected around the site of bleeding at which time hemostasis was achieved. I was able to see an ulceration with a visible vessel in this area and adjacent to this area there was another linear ulceration noted in the distal esophagus CONSISTENT with severe reflux esophagitis. At this time Endo Clip was placed on the ulcer with good hemostasis. The rest of the esophagus appeared normal and the patient tolerated the procedure well. IMPRESSION: 1. Active bleeding from distal esophageal ulcer at the GE junction status post injection epinephrine and Endo Clip placement with good hemostasis. 2. Hiatal hernia. RECOMMENDATIONS: The findings of this examination were discussed with the patient as well as his family. Patient continues to remain intubated. He will be continued on IV Protonix 40 minute grams every 12 hours. CBC every 6 hours. Transfuse as needed. Surgical consultation was obtained and the case was discussed with Dr. liriano.
[2017-04-15] MEDS: PIPERACILLIN-TAZOBACTAM 3.375 GM in DEXTROSE/WATER 1 50ML.BAG IVPB SCH ×2 (11:20→22:10)
[2017-04-15] MEDS: NOREPINEPHRIN 16 MG-0.9%NS PMX 16 MG/250 ML ML IV SCH ×2 (11:21→16:04)
[2017-04-15] MEDS: PROPOFOL 1,000 MG in EMPTY BAG 1 BAG IV SCH ×2 (11:22→16:39)
--- NOTE | 2017-04-15 12:23 | PCN ---
PROCEDURE NOTE ENDOTRACHEAL INTUBATION: INDICATION: Respiratory compromise. PREOP DIAGNOSIS: Acute respiratory failure. POSTOP DIAGNOSIS: Acute respiratory failure. A time-out was completed verifying correct patient, procedure, site, positioning, and implant(s) or special equipment if applicable. The patient was positioned appropriately and a #8 orotracheal tube was placed under direct laryngoscopy. I used a #4 Wood blade. The tube was anchored at 22 cm at the teeth. Correct placement was confirmed by presence of bilateral breath sounds without air sounds in the abdomen on auscultation. An end-tidal CO2 monitor was also used to confirm tracheal placement of the ET tube. A chest x-ray was ordered to assess for pneumothorax and verify orotracheal tube placement. The patient tolerated the procedure well and there were no complications. I intubated this patient with a #8 oral tracheal tube and I used a #4 Wood blade. No complications. MMODL / IJN: [id number] /
--- NOTE | 2017-04-15 12:23 | PCN ---
PROCEDURE NOTE TRIPLE LUMEN CATHETER PLACEMENT: INDICATION: Hemodynamic monitoring/Intravenous access. PREOP DIAGNOSIS: Acute GI bleeding and shock. POSTOP DIAGNOSIS: Acute gastrointestinal bleeding and shock. A time-out was completed verifying correct patient, procedure, site, positioning, and implant(s) or special equipment if applicable. The patient was placed in a dependent position appropriate for triple lumen catheter placement based on the vein to be cannulated. The patient's left shoulder was prepped and draped in sterile fashion. 1% Lidocaine was used to anesthetize the surrounding skin area. A triple lumen 9F Cordis catheter was introduced into the subclavian vein using Seldinger technique. The catheter was threaded smoothly over the guide wire and appropriate blood return was obtained. Each lumen of the catheter was evacuated of air and flushed with sterile saline. The catheter was then sutured in place to the skin and a sterile dressing applied. Perfusion to the extremity distal to the point of catheter insertion was checked and found to be adequate. This was done without any complications. Chest x-ray shows no pneumothorax. Site of insertion of left subclavian vein. Will continue to follow. MMODL / IJN: [id number] /
--- NOTE | 2017-04-15 12:39 | XR ---
EXAMINATION TYPE: XR chest 1V DATE OF EXAM: 04/15/2017 COMPARISON: 04/15/2017 and 9:13 AM HISTORY: Orogastric tube placement TECHNIQUE: Single frontal view of the chest is obtained. FINDINGS: The orogastric tube has been advanced in the interim coiling within the region of gastric body, appearing appropriately placed. Left-sided central venous catheter is unchanged as well as the endotracheal tube. However, new multifocal right-sided opacities have developed in the interim. Left lung remains clear. Cardiomediastinal silhouette is within normal limits. IMPRESSION: 1. Interval advancement of a now appropriately placed enteric tube. Stable positioning of the endotra cheal tube and left PICC. 2. New multifocal right-sided patchy opacities that given the short-term development are likely relat ed to multifocal atelectasis although pneumonia is possible.
--- NOTE | 2017-04-15 13:43 | P.GSCN ---
History of Present Illness Consult date: 04/15/17 Reason for Consult: Upper GI bleed History of present illness: This 89-year-old male who lives at home by himself. He presented with a chief complaint of bloody emesis in bowel movements. He was found to have a massive upper GI bleed. He has a history of CHF CK D A. fib and AAA repair. Patient required emergent EGD and was in hemorrhagic shock. During EGD bleeding ulceration was noted at GE junction. This was clipped and bleeding was stopped. Patient is now intubated sedated on pressors and critical condition in the ICU. Past Medical History Past Medical History: Atrial Fibrillation, Hypertension, Myocardial Infarction ( [place]) Additional Past Medical History / Comment(s): Chronic renal failure, chronic atrial fibrillation, hypertension, coronary artery disease and previous myocardial infarction, abdominal aortic and was in the has not appearance, atherosclerosis with peripheral vascular disease, COPD, dementia, BPH, hyperlipidemia, prostate cancer Last Myocardial Infarction Date:: 1996 History of Any Multi-Drug Resistant Organisms: None Reported Past Surgical History: Heart Catheterization, Tonsillectomy Additional Past Surgical History / Comment(s): Repair of abdominal aortic aneurysm, previous history of right femoral endarterectomy, Past Psychological History: No Psychological Hx Reported Smoking Status: Former smoker Past Alcohol Use History: Occasional Past Drug Use History: None Reported Medications and Allergies Home Medications Medication Instructions Recorded Confirmed Type Tamsulosin [Flomax] 0.4 mg PO DAILY 06/11/13 04/14/17 History Aspirin EC [Ecotrin Low Dose] 81 mg PO DAILY 04/14/17 04/14/17 History Atorvastatin [Lipitor] 80 mg PO DAILY 04/14/17 04/14/17 History Furosemide [Lasix] 40 mg PO DAILY 04/14/17 04/14/17 History Naproxen 500 mg PO BID PRN 04/14/17 04/14/17 History amLODIPine [Norvasc] 5 mg PO DAILY 04/14/17 04/14/17 History Allergies Allergy/AdvReac Type Severity Reaction Status Date / Time No Known Allergies Allergy Verified 04/14/17 10:35 Surgical - Exam Osteopathic Statement: *. No significant issues noted on an osteopathic structural exam other than those noted in the History and Physical/Consult. Vital Signs Temp Pulse Resp BP Pulse Ox 98.1 F 60 20 104/58 95 04/14/17 09:04 04/14/17 09:04 04/14/17 09:04 04/14/17 09:04 04/14/17 09:04 - General Patient is intubated and sedated - Eyes PERRL - ENT Pale conjunctiva - Neck trachea midline - Respiratory On a ventilator - Abdomen Soft nontender nondistended midline scar present from previous AAA repair - Psychiatric Intubated and sedated Results - Labs 04/15/17 09:45 04/15/17 09:45 Abnormal Lab Results - Last 24 Hours (Table) 04/14/17 04/14/17 04/14/17 Range/Units 11:28 14:01 14:01 WBC 10.9 H (3.8-10.6) k/uL RBC 1.49 L (4.30-5.90) m/uL Hgb 4.7 L* (13.0-17.5) gm/dL Hct 15.2 L* (39.0-53.0) % MCV 101.6 H (80.0-100.0) fL MCHC 30.9 L (31.0-37.0) g/dL RDW 15.9 H (11.5-15.5) % Plt Count 107 L (150-450) k/uL Neutrophils # (1.3-7.7) k/uL Lymphocytes # (1.0-4.8) k/uL ABG pH (7.35-7.45) ABG pO2 (83-108) mmHg ABG HCO3 (21-25) mmol/L ABG O2 Saturation (94-97) % Sodium (137-145) mmol/L Chloride (98-107) mmol/L Carbon Dioxide (22-30) mmol/L BUN (9-20) mg/dL Creatinine (0.66-1.25) mg/dL Glucose (74-99) mg/dL POC Glucose (mg/dL) (75-99) mg/dL Plasma Lactic Acid Robin 2.8 H* (0.7-2.0) mmol/L Calcium (8.4-10.2) mg/dL Phosphorus (2.5-4.5) mg/dL Total Protein (6.3-8.2) g/dL Albumin (3.5-5.0) g/dL Crossmatch See Detail 04/14/17 04/14/17 04/14/17 Range/Units 17:08 17:59 23:51 WBC 17.8 H 21.0 H (3.8-10.6) k/uL RBC 2.47 L 2.30 L (4.30-5.90) m/uL Hgb 7.6 L D 7.1 L (13.0-17.5) gm/dL Hct 22.0 L 21.5 L (39.0-53.0) % MCV (80.0-100.0) fL MCHC (31.0-37.0) g/dL RDW 17.4 H 17.5 H (11.5-15.5) % Plt Count 95 L 81 L (150-450) k/uL Neutrophils # 19.3 H (1.3-7.7) k/uL Lymphocytes # 0.6 L (1.0-4.8) k/uL ABG pH (7.35-7.45) ABG pO2 (83-108) mmHg ABG HCO3 (21-25) mmol/L ABG O2 Saturation (94-97) % Sodium (137-145) mmol/L Chloride (98-107) mmol/L Carbon Dioxide (22-30) mmol/L BUN (9-20) mg/dL Creatinine (0.66-1.25) mg/dL Glucose (74-99) mg/dL POC Glucose (mg/dL) 149 H (75-99) mg/dL Plasma Lactic Acid Robin (0.7-2.0) mmol/L Calcium (8.4-10.2) mg/dL Phosphorus (2.5-4.5) mg/dL Total Protein (6.3-8.2) g/dL Albumin (3.5-5.0) g/dL Crossmatch 04/15/17 04/15/17 04/15/17 Range/Units 07:01 07:01 09:25 WBC 23.4 H (3.8-10.6) k/uL RBC 2.94 L (4.30-5.90) m/uL Hgb 9.3 L D (13.0-17.5) gm/dL Hct 26.6 L (39.0-53.0) % MCV (80.0-100.0) fL MCHC (31.0-37.0) g/dL RDW 16.4 H (11.5-15.5) % Plt Count 84 L (150-450) k/uL Neutrophils # 21.7 H (1.3-7.7) k/uL Lymphocytes # 0.7 L (1.0-4.8) k/uL ABG pH 7.32 L (7.35-7.45) ABG pO2 >420 H (83-108) mmHg ABG HCO3 18 L (21-25) mmol/L ABG O2 Saturation 99.1 H (94-97) % Sodium 146 H (137-145) mmol/L Chloride 115 H (98-107) mmol/L Carbon Dioxide (22-30) mmol/L BUN 115 H* (9-20) mg/dL Creatinine 2.50 H (0.66-1.25) mg/dL Glucose 123 H (74-99) mg/dL POC Glucose (mg/dL) (75-99) mg/dL Plasma Lactic Acid Robin (0.7-2.0) mmol/L Calcium 8.0 L (8.4-10.2) mg/dL Phosphorus 5.2 H (2.5-4.5) mg/dL Total Protein 4.0 L (6.3-8.2) g/dL Albumin 1.9 L (3.5-5.0) g/dL Crossmatch 04/15/17 04/15/17 Range/Units 09:45 09:45 WBC 19.8 H (3.8-10.6) k/uL RBC 2.39 L (4.30-5.90) m/uL Hgb 7.4 L D (13.0-17.5) gm/dL Hct 22.0 L (39.0-53.0) % MCV (80.0-100.0) fL MCHC (31.0-37.0) g/dL RDW 16.5 H (11.5-15.5) % Plt Count 73 L (150-450) k/uL Neutrophils # 18.3 H (1.3-7.7) k/uL Lymphocytes # 0.5 L (1.0-4.8) k/uL ABG pH (7.35-7.45) ABG pO2 (83-108) mmHg ABG HCO3 (21-25) mmol/L ABG O2 Saturation (94-97) % Sodium 146 H (137-145) mmol/L Chloride 117 H (98-107) mmol/L Carbon Dioxide 20 L (22-30) mmol/L BUN 112 H* (9-20) mg/dL Creatinine 2.59 H (0.66-1.25) mg/dL Glucose 127 H (74-99) mg/dL POC Glucose (mg/dL) (75-99) mg/dL Plasma Lactic Acid Robin (0.7-2.0) mmol/L Calcium 7.2 L (8.4-10.2) mg/dL Phosphorus 5.0 H (2.5-4.5) mg/dL Total Protein 3.4 L (6.3-8.2) g/dL Albumin 1.5 L (3.5-5.0) g/dL Crossmatch Diabetes panel 04/15/17 04/15/17 Range/Units 07:01 09:45 Sodium 146 H 146 H (137-145) mmol/L Potassium 4.7 4.5 (3.5-5.1) mmol/L Chloride 115 H 117 H (98-107) mmol/L Carbon Dioxide 22 20 L (22-30) mmol/L BUN 115 H* 112 H* (9-20) mg/dL Creatinine 2.50 H 2.59 H (0.66-1.25) mg/dL Glucose 123 H 127 H (74-99) mg/dL Calcium 8.0 L 7.2 L (8.4-10.2) mg/dL AST 27 22 (17-59) U/L ALT 29 31 (21-72) U/L Alkaline Phosphatase 47 42 (38-126) U/L Total Protein 4.0 L 3.4 L (6.3-8.2) g/dL Albumin 1.9 L 1.5 L (3.5-5.0) g/dL Calcium panel 04/15/17 04/15/17 Range/Units 07:01 09:45 Calcium 8.0 L 7.2 L (8.4-10.2) mg/dL Phosphorus 5.2 H 5.0 H (2.5-4.5) mg/dL Albumin 1.9 L 1.5 L (3.5-5.0) g/dL Pituitary panel 04/15/17 04/15/17 Range/Units 07:01 09:45 Sodium 146 H 146 H (137-145) mmol/L Potassium 4.7 4.5 (3.5-5.1) mmol/L Chloride 115 H 117 H (98-107) mmol/L Carbon Dioxide 22 20 L (22-30) mmol/L BUN 115 H* 112 H* (9-20) mg/dL Creatinine 2.50 H 2.59 H (0.66-1.25) mg/dL Glucose 123 H 127 H (74-99) mg/dL Calcium 8.0 L 7.2 L (8.4-10.2) mg/dL Adrenal panel 04/15/17 04/15/17 Range/Units 07:01 09:45 Sodium 146 H 146 H (137-145) mmol/L Potassium 4.7 4.5 (3.5-5.1) mmol/L Chloride 115 H 117 H (98-107) mmol/L Carbon Dioxide 22 20 L (22-30) mmol/L BUN 115 H* 112 H* (9-20) mg/dL Creatinine 2.50 H 2.59 H (0.66-1.25) mg/dL Glucose 123 H 127 H (74-99) mg/dL Calcium 8.0 L 7.2 L (8.4-10.2) mg/dL Total Bilirubin 1.0 0.6 (0.2-1.3) mg/dL AST 27 22 (17-59) U/L ALT 29 31 (21-72) U/L Alkaline Phosphatase 47 42 (38-126) U/L Total Protein 4.0 L 3.4 L (6.3-8.2) g/dL Albumin 1.9 L 1.5 L (3.5-5.0) g/dL Assessment and Plan Assessment: Upper GI bleed, bleeding ulcer at GE junction, hemodynamic shock, CHF, history of A. fib, CKD, history of AAA repair Plan: Patient is critically ill and unstable at this time. He is requiring pressors. Bleeding appears to been controlled with EGD and clips. Given patient's overall condition and medical comorbidities I do not believe he would survive a major surgery if he rebleeds and requires surgical intervention to stop the bleeding. Given the location of the ulceration at the GE junction the patient would require a partial gastrectomy with Prince-en-Y esophago-jejunostomy. In his current state he is not a candidate for that surgery. This was discussed with the family and medical team. Plan for continued supportive care per critical care team.
[2017-04-15] MEDS: PANTOPRAZOLE 40 MG/10 ML VIAL IVP SCH ×2 (14:55→23:31)
[2017-04-15 16:08] LABS: Anisocytosis Slight; HCT 33.6 % (39.0-53.0); MCH 30.1 pg (25.0-35.0); MCHC 33.3 g/dL (31.0-37.0); MCV 90.5 fL (80.0-100.0); RBC 3.71 m/uL (4.30-5.90); RDW 16.4 % (11.5-15.5)
[2017-04-15 16:11] LABS: HGB 11.2 gm/dL (13.0-17.5); Platelet Count 70 k/uL (150-450)
[2017-04-15 16:13] LABS: WBC 28.8 k/uL (3.8-10.6)
[2017-04-15 17:21] LABS: Glucose,Whole Blood 149 mg/dL (75-99)
[2017-04-15] MEDS: CHLORHEXIDINE GLUCONATE 15 ML CUP MUCOUS MEM SCH (21:37)
[2017-04-15 22:08] LABS: Anisocytosis Slight; Basophils % (A) 0 %; Eosinophils % (A) 0 %; HCT 34.6 % (39.0-53.0); HGB 10.5 gm/dL (13.0-17.5); Hypochromasia Marked; Lymphocytes # (A) 0.9 k/uL (1.0-4.8); Lymphocytes % (A) 4 %; MCH 29.5 pg (25.0-35.0); MCHC 30.4 g/dL (31.0-37.0); Macrocytosis Slight; Mean Platelet Volume 11.8; Monocytes # (A) 1.2 k/uL (0-1.0); Monocytes % (A) 6 %; Neutrophils # (A) 18.9 k/uL (1.3-7.7); Neutrophils % (A) 88 %; RBC 3.57 m/uL (4.30-5.90); WBC 21.5 k/uL (3.8-10.6)
[2017-04-15 22:10] LABS: MCV 97.1 fL (80.0-100.0); Platelet Count 73 k/uL (150-450)
[2017-04-15 23:55] LABS: Glucose,Whole Blood 135 mg/dL (75-99)
[2017-04-16] MEDS: NOREPINEPHRIN 16 MG-0.9%NS PMX 16 MG/250 ML ML IV SCH ×2 (01:31→15:06)
[2017-04-16] MEDS: SODIUM CHLORIDE 0.9% 1,000 ML IV SCH ×3 (04:28→12:38)
[2017-04-16] MEDS: PROPOFOL 1,000 MG in EMPTY BAG 1 BAG IV SCH ×3 (04:29→21:47)
[2017-04-16 04:44] LABS: Anisocytosis Slight; HCT 30.4 % (39.0-53.0); MCH 30.1 pg (25.0-35.0); MCHC 32.9 g/dL (31.0-37.0); Mean Platelet Volume 12.7; RBC 3.32 m/uL (4.30-5.90); RDW 17.2 % (11.5-15.5)
[2017-04-16 04:53] LABS: MCV 91.5 fL (80.0-100.0); Platelet Count 84 k/uL (150-450); WBC 25.6 k/uL (3.8-10.6)
[2017-04-16 04:53] LABS: ABG Base Excess -8.6 mmol/L; ABG HCO3 16 mmol/L (21-25); ABG Oxygen Saturation 98.7 % (94-97); ABG PCO2 25 mmHg (35-45); ABG PH 7.41 (7.35-7.45); ABG PO2 171 mmHg (83-108); ABG TCO2 17 mmol/L (19-24)
[2017-04-16 05:55] LABS: Magnesium 1.8 mg/dL (1.6-2.3); Phosphorus 5.7 mg/dL (2.5-4.5); Potassium 4.8 mmol/L (3.5-5.1)
[2017-04-16 06:49] LABS: Glucose,Whole Blood 133 mg/dL (75-99)
[2017-04-16] MEDS: CHLORHEXIDINE GLUCONATE 15 ML CUP MUCOUS MEM SCH ×2 (09:14→21:46)
[2017-04-16] MEDS: PANTOPRAZOLE 40 MG/10 ML VIAL IVP SCH ×2 (09:14→21:46)
--- NOTE | 2017-04-16 09:23 | XR ---
EXAMINATION TYPE: XR chest 1V portable DATE OF EXAM: 04/16/2017 COMPARISON: 04/15/2017 HISTORY: Abnormal x-ray TECHNIQUE: Single frontal view of the chest is obtained. FINDINGS: Bilateral infiltrate and pleural effusion stable. ET, NG, central line stable. Cardiomegal y, atherosclerotic change aorta and degenerative change of the spine. No pneumothorax. IMPRESSION: 1. Bilateral airspace disease and pleural effusion underlying mild venous congestion not excluded. Fi ndings stable.
[2017-04-16] MEDS: PIPERACILLIN-TAZOBACTAM 3.375 GM in DEXTROSE/WATER 1 50ML.BAG IVPB SCH ×2 (09:50→21:46)
[2017-04-16 11:05] LABS: Anisocytosis Slight; HCT 28.9 % (39.0-53.0); MCH 30.7 pg (25.0-35.0); MCHC 34.6 g/dL (31.0-37.0); MCV 88.7 fL (80.0-100.0); Mean Platelet Volume 11.6; Poikilocytosis Slight; RBC 3.25 m/uL (4.30-5.90); RDW 17.7 % (11.5-15.5)
[2017-04-16 11:08] LABS: Platelet Count 91 k/uL (150-450)
[2017-04-16 12:10] LABS: Band Neutrophils % 3 %; Eosinophils # (M) 0.22 k/uL (0-0.7); Neutrophils % (M) 86 %; Nucleated Red Blood Cells 1 /100 WBC (0-0); Total Cells Counted 200
[2017-04-16 12:14] LABS: Lymphocytes # (M) 0.44 k/uL (1.0-4.8); WBC 22.2 k/uL (3.8-10.6)
[2017-04-16 12:14] LABS: Glucose,Whole Blood 147 mg/dL (75-99)
[2017-04-16 12:15] LABS: Large Platelets Present
--- NOTE | 2017-04-16 12:24 | P.PN ---
Subjective Progress Note Date: 04/16/17 Principal diagnosis: Acute upper GI bleeding and acute hypoxic respiratory failure 89-year-old male patient, known history of congestion heart failure, chronic renal failure, chronic atrial fibrillation who has been taking aspirin and nonsteroidal anti-inflammatory medication outpatient basis. The patient came into the emergency department with episodes of hematemesis and the patient vomited bright red blood around 3-4 times prior to his arrival. In the emergency department he had 2-3 more episodes. The patient was taken apparently aspirin and Naprosyn. He is denying any previous history of alcoholism. He admitted to have some dark stools over the past few days. No chest pain. No syncope. He was feeling increasingly weak and tired. He has chronic lower extremity edema. No previous episodes of GI bleed. The patient was seen in the MRSA problem by gastroenterology. His initial hemoglobin was 6.1 and subsequently dropped down to 4.7. His platelet count was at 135 and dropped to 107. Correlation profile is within normal. The patient is prerenal with a BUN of 108 and creatinine of 2.8. Lipase level was apparently on 32. Lactic acid level was at 5.3 and is currently down to 2.8. Blood was ordered however there has been difficulty in obtaining the right match due to blood compatibility. Ultimately, 2 units of packed RBC were found to be available and the patient is currently getting his first unit. He got moved to the intensive care unit. He is also on IV fluids. There was concern the [facility] that the patient may get overloaded with fluids. He was placed only on 75 mL an hour. I'm going to give him at least 2-3 L of bolus immediately in the ICU. He was tachycardic in the MRSA problem and the heart rate has slowed down. Most recent blood pressures 120/65. He has 2 peripheral IV lines. The patient was kept on IV Protonix. He is known to have also abdominal aortic aneurysm that has been repaired many years back. He has chronic atrial fibrillation as mentioned. On 04/15/2017, the patient is intensive care units. Note that overnight the patient continued to have episodes of upper GI bleed. NG tube was successfully inserted and the patient had a total of 200 mL of bloody drainage overnight. The patient was still throwing up blood episodically around the NG tube. GI was contacted on multiple occasions and ultimately this morning at around 7:30 AM preparations were done for EGD. By that time the patient was becoming more lethargic, short of breath, tachypneic and he was also developing significant hypoxemia with pulse ox dropped down to 84% while being on oxygen at 3 L/m nasal cannula. Note that overnight, the patient was given boluses of IV fluids and he received a total of 4 L of fluid bolus and he received a total of 5 units of packed RBC. With transfusion the hemoglobin came from as low as 4.7 up to 9.3. Nevertheless there was ongoing issues with bleeding and for that reason EGD was indicated. Based on his overall condition, I opted to intubate the patient to protect his airway. This was done and the intensive care unit without any major difficulties. Following that the patient was x-ray mechanical ventilator and currently the patient assist-control mode at the rate of 20, tidal volume 500 with FiO2 100% and PEEP of 5 and the blood gases still pending. I also inserted a triple lumen catheter in the left subclavian vein. Patient is currently on pressors and currently is on levo fed at the rate of 45 mics. Urine output is low. IV fluid is running at 75 and this will be increased up to 150 mL an hour. The patient is on Diprivan at 25 mics per KG per minute. Post intubation chest x-ray showed no evidence of any pulmonary edema. As such I suspect that the patient could've aspirated and the cracking is being Initiated is probably related to upper airway obstruction related to aspiration. In any rate, currently the patient is intubated and the blood gases are still pending for now. The patient is an 80 fibrillation rate is controlled for now. There is also drop in the plated count down to 84 and a platelet transfusion will also ordered. Renal function is improving and creatinine is down to 2.5. Actiq acid was at 2.8 and currently is down to 1. On today's blood work, the liver function tests within normal limits, the albumin is down to 1.9. Patient was reevaluated today on 04/16/2017, remains on mechanical ventilation, tidal volume of 500 assist control rate of 20 FiO2 of 35% and PEEP of 5. Patient remains on norepinephrine, about to 20 mics per minute, and we plan to titrate this down since the blood pressure seems to be stabilizing. His renal functioning seems to be getting worse, hence I have consulted nephrology to evaluate today. Patient remains on IV fluid at 150 mL per hour, good urine output is noted, however looking at his electrolytes, the patient seems to have a hyperchloremic non-anion gap metabolic acidosis. His bicarb is 14, BUN is 126 , and his creatinine is 3.20. ABG showed a pO2 of 171 pCO2 of 25 pH of 7.41. Hemoglobin today is holding at 10.0 WBC count is 22.4 platelets are 91,000. Chest x-ray shows bibasilar airspace disease and pleural effusion with mild vascular congestion. Suspect a component of right lower lobe aspiration pneumonia based on the chest x-ray. Objective - Vital Signs Vital signs: Vital Signs Temp 97.8 F 04/16/17 08:00 Pulse 64 04/16/17 10:00 Resp 20 04/16/17 10:00 BP 116/70 04/16/17 10:00 Pulse Ox 100 04/16/17 10:00 Intake & Output 04/15/17 04/16/17 04/16/17 18:59 06:59 18:59 Intake Total 4427.761 2236.368 771.792 Output Total 150 80 100 Balance 4277.761 2156.368 671.792 Weight 85.8 kg Intake: IV 3350 1800 600 Sodium Chloride 0.9% 1, 900 1800 600 000 ml @ 150 mls/hr IV . Q6H40M [facility] Rx#:[id number] Sodium Chloride 0.9% 1, 450 000 ml @ 75 mls/hr IV . [id number] [facility] Rx#:[id number] Sodium Chloride 0.9% 1, 2000 000 ml @ 999 mls/hr IV . Q1H1M [facility] Rx#:[id number] Intake, IV Titration 457.761 436.368 171.792 Amount Norepinephrin 16 mg-0.9% 246.261 344.910 103.125 Ns Pmx 16 mg In 250 ml @ Titrate IV .Q0M [facility] Rx#: [id number] Norepinephrin 4 mg-0.9% 175.5 Ns Pmx 4 mg In 250 ml @ Titrate IV .Q0M [facility] Rx#: [id number] Propofol 1,000 mg In 36.000 91.458 68.667 Empty Bag 1 bag @ Titrate IV .Q0M [facility] Rx#: [id number] Blood Product 620 Rc As-1 Unit 310 [id number] Rc As-1 Unit 310 [id number] Output: Urine 150 80 100 Other: Voiding Method Indwelling Catheter Indwelling Catheter Indwelling Catheter - Exam General appearance: alert, in no apparent distress, patient is on mechanical ventilation, followed all simple instructions off propofol. Head exam: Atraumatic, normocephalic Eye exam: PERRLA, EOMI ENT exam: Endotracheal tube is intact, moist mucous membranes. No icterus. Neck exam: Neck supple no neck masses no thyromegaly, endotracheal tube is intact. Respiratory exam: Diminished breath sounds and crackles mostly at the right base otherwise unremarkable. Symmetrical chest expansion noted. Cardiovascular Exam: Irregular rhythm, no S3 gallop, 2/6 systolic murmur thought the precordium GI/Abdominal exam: Soft, nontender, no megaly, no rebound, positive bowel sounds. Rectal exam: Not performed Extremities exam: No clubbing edema or cyanosis. Good pulses bilaterally. Neurological exam: No gross focal neurologic deficit alert oriented 3 Psychiatric exam: Normal mood affect and normal mental status examination. Skin exam: Present: warm, dry, intact, pallor. No cyanosis. - Labs CBC & Chem 7: 04/16/17 10:12 04/16/17 04:05 Labs: Abnormal Lab Results - Last 24 Hours (Table) 04/14/17 04/15/17 04/15/17 Range/Units 11:28 15:55 17:18 WBC 28.8 H* (3.8-10.6) k/uL RBC 3.71 L (4.30-5.90) m/uL Hgb 11.2 L D (13.0-17.5) gm/dL Hct 33.6 L (39.0-53.0) % MCHC (31.0-37.0) g/dL RDW 16.4 H (11.5-15.5) % Plt Count 70 L (150-450) k/uL Neutrophils # (1.3-7.7) k/uL Lymphocytes # (1.0-4.8) k/uL Monocytes # (0-1.0) k/uL ABG pCO2 (35-45) mmHg ABG pO2 (83-108) mmHg ABG HCO3 (21-25) mmol/L ABG Total CO2 (19-24) mmol/L ABG O2 Saturation (94-97) % Chloride (98-107) mmol/L Carbon Dioxide (22-30) mmol/L BUN (9-20) mg/dL Creatinine (0.66-1.25) mg/dL Glucose (74-99) mg/dL POC Glucose (mg/dL) 149 H (75-99) mg/dL Calcium (8.4-10.2) mg/dL Phosphorus (2.5-4.5) mg/dL Crossmatch See Detail 04/15/17 04/15/17 04/16/17 Range/Units 21:46 23:53 04:05 WBC 21.5 H 25.6 H* (3.8-10.6) k/uL RBC 3.57 L 3.32 L (4.30-5.90) m/uL Hgb 10.5 L 10.0 L (13.0-17.5) gm/dL Hct 34.6 L 30.4 L (39.0-53.0) % MCHC 30.4 L (31.0-37.0) g/dL RDW 17.0 H 17.2 H (11.5-15.5) % Plt Count 73 L 84 L (150-450) k/uL Neutrophils # 18.9 H (1.3-7.7) k/uL Lymphocytes # 0.9 L (1.0-4.8) k/uL Monocytes # 1.2 H (0-1.0) k/uL ABG pCO2 (35-45) mmHg ABG pO2 (83-108) mmHg ABG HCO3 (21-25) mmol/L ABG Total CO2 (19-24) mmol/L ABG O2 Saturation (94-97) % Chloride (98-107) mmol/L Carbon Dioxide (22-30) mmol/L BUN (9-20) mg/dL Creatinine (0.66-1.25) mg/dL Glucose (74-99) mg/dL POC Glucose (mg/dL) 135 H (75-99) mg/dL Calcium (8.4-10.2) mg/dL Phosphorus (2.5-4.5) mg/dL Crossmatch 04/16/17 04/16/17 04/16/17 Range/Units 04:05 04:50 06:47 WBC (3.8-10.6) k/uL RBC (4.30-5.90) m/uL Hgb (13.0-17.5) gm/dL Hct (39.0-53.0) % MCHC (31.0-37.0) g/dL RDW (11.5-15.5) % Plt Count (150-450) k/uL Neutrophils # (1.3-7.7) k/uL Lymphocytes # (1.0-4.8) k/uL Monocytes # (0-1.0) k/uL ABG pCO2 25 L (35-45) mmHg ABG pO2 171 H (83-108) mmHg ABG HCO3 16 L (21-25) mmol/L ABG Total CO2 17 L (19-24) mmol/L ABG O2 Saturation 98.7 H (94-97) % Chloride 119 H (98-107) mmol/L Carbon Dioxide 14 L (22-30) mmol/L BUN 126 H* (9-20) mg/dL Creatinine 3.20 H (0.66-1.25) mg/dL Glucose 144 H (74-99) mg/dL POC Glucose (mg/dL) 133 H (75-99) mg/dL Calcium 8.0 L (8.4-10.2) mg/dL Phosphorus 5.7 H (2.5-4.5) mg/dL Crossmatch 04/16/17 04/16/17 Range/Units 10:12 12:13 WBC 22.4 H (3.8-10.6) k/uL RBC 3.25 L (4.30-5.90) m/uL Hgb 10.0 L (13.0-17.5) gm/dL Hct 28.9 L (39.0-53.0) % MCHC (31.0-37.0) g/dL RDW 17.7 H (11.5-15.5) % Plt Count 91 L (150-450) k/uL Neutrophils # (1.3-7.7) k/uL Lymphocytes # (1.0-4.8) k/uL Monocytes # (0-1.0) k/uL ABG pCO2 (35-45) mmHg ABG pO2 (83-108) mmHg ABG HCO3 (21-25) mmol/L ABG Total CO2 (19-24) mmol/L ABG O2 Saturation (94-97) % Chloride (98-107) mmol/L Carbon Dioxide (22-30) mmol/L BUN (9-20) mg/dL Creatinine (0.66-1.25) mg/dL Glucose (74-99) mg/dL POC Glucose (mg/dL) 147 H (75-99) mg/dL Calcium (8.4-10.2) mg/dL Phosphorus (2.5-4.5) mg/dL Crossmatch Microbiology - Last 24 Hours (Table) 04/15/17 09:36 Gram Stain - Preliminary Sputum Sputum Culture - Preliminary Assessment and Plan Assessment: 1 acute upper GI bleeding, rule out peptic ulcer disease, rule out gastritis, rule out duodenal/gastric ulcer with secondary bleeding specially the patient has been taken a combination of aspirin and nonsteroidal anti-inflammatory medication. On 04/15/2017, the patient is still bleeding actively. NG tube is in place. He has been resuscitated with IV fluids and received a total of 4 L of IV fluid and 5 units of packed RBC. Awaiting EGD. Hemodynamically he is condition has gotten worse. He became progressively hypotensive and he had to be placed on pressors and currently is on 45 mics of norepinephrine infusion. He is being given IV fluids. His most recent hemoglobin is at 9.3. Currently is intubated on a mechanical ventilator. There is a obvious possibility that the patient have aspirated which put him in significant respiratory distress and acute hypoxic respiratory failure. As such the patient was intubated and placed on a mechanical ventilation. Post intubation chest x-ray shows no evidence of pneumonia. Blood gases shows adequate oxygenation. On 04/16/2017, patient does not have any active bleeding at present, patient seems to be doing well overall, remains on norepinephrine at 20 g which I plan to taper and hopefully discontinue today. Renal functioning seems to be getting worse hence a nephrology consult was initiated. In the meantime continue IV fluids, patient does have non-anion gap hyperchloremic metabolic acidosis. 2 profound anemia secondary to GI related blood loss. Received a total of 4 units of packed RBC 3 acute kidney injury, secondary to intravascular volume depletion. The patient 's creatinine is improving and the creatinine is now 3.20. 4 acute hypoxic respiratory failure currently intubated on a mechanical ventilator, possible aspiration. Right lower lobe pneumonia suspected, patient is on Zosyn. 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 fib rhythm 11 thrombocytopenia 12 leukocytosis Recommendation: Continue ventilatory support, continue to monitor CBC and hemoglobin, continue IV fluid at 1 50 mL per hour, nephrology consultation was initiated, continue antibiotics, taper and titrate, and possibly discontinue norepinephrine today. Discussed his condition with all his family members at bedside. Patient is not quite ready to be weaned at this point, but that may have to be considered later this afternoon or early in a.m. Prognosis remains guarded. Updated his and his kids at bedside on his condition. Critical care time is 35 minutes. Time with Patient: Greater than 30
--- NOTE | 2017-04-16 13:51 | PN ---
PROGRESS NOTE DATE OF SERVICE: 04/16/2017 Patient is an 89-year-old white male admitted to hospital with acute massive upper GI bleed. He underwent an upper endoscopy yesterday, prior to which he was intubated to protect his airway. Upper endoscopy revealed a bleeding ulcer at the GE junction, which was injected and Endoclip was placed. The patient remains intubated on the vent on Levophed 20 mcg an hour, continues to remain sedated. Through the night did not have any more bleeding. NG tube has bilious fluid and he had 1 small black tarry stool through the night. PHYSICAL EXAMINATION: Sedated and intubated. VITAL SIGNS: Temperature 97.2, pulse rate 89, and afebrile. HEENT EXAMINATION: Unremarkable, conjunctivae are pink, sclerae nonicteric. NECK: No JVD or lymph node enlargement. Chest was clear to auscultation. HEART: Regular rate and rhythm. ABDOMEN: Soft. Bowel sounds are positive. EXTREMITIES: No pedal edema. NEURO: Cannot be assessed, as patient is sedated. LABS: From today, WBC 22.2, hemoglobin 10, platelets 91, BUN 126, creatinine is 3.2. IMPRESSION: 1. Acute severe upper gastrointestinal bleed requiring total of 7 units of blood transfusion, last hemoglobin 10 g/dL, status post EGD yesterday that showed it is a gastroesophageal junction ulcer which was injected and clipped and presently stable with no rectal bleeding. 2. Severe hypertension secondary to hypokalemia. Remains on Levophed at 20 mcg an hour. 3. Acute renal failure for which Nephrology is following the patient. 4. Acute respiratory failure with possible aspiration, remains on the vent and sedated. RECOMMENDATIONS: 1. Continue with IV Protonix 40 mg q.12 hours. 2. Monitor CBC every 6 hours. 3. 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 MMODL / IJN: [id number] /
--- NOTE | 2017-04-16 14:36 | PN ---
PROGRESS NOTE DATE OF SERVICE: 04/15/2017 CHIEF COMPLAINT: Upper GI bleed and hypovolemic shock. HISTORY OF PRESENT ILLNESS: This patient has trouble. 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 He was intubated and scope was done when he was found to have a large ulcer at the GE junction. At the present time, he is hypotension and on pressors. He is still making urine. PHYSICAL EXAM: Remains very pale. Cardiac exam demonstrates what sounds like sinus rhythm and his chest is clear. IMPRESSION: 1. Upper gastrointestinal bleed. 2. Hypovolemic shock. 3. History of hypertension. 4. Chronic renal failure. PLAN: Continue supportive efforts and hope that there is no further bleeding. MMODL / IJN: [id number] /
--- NOTE | 2017-04-16 14:48 | PN ---
PROGRESS NOTE DATE OF SERVICE: 04/16/2017. CHIEF COMPLAINT: Upper GI bleed with hypovolemic shock. HISTORY OF PRESENT ILLNESS: This patient is fairly stable. He is still on the ventilator and sedated. He is still on Levophed for blood pressure. He continues to make urine. PHYSICAL EXAM: He remains pale. Breath sounds are heard on both sides. The cardiac exam is unremarkable and bowel sounds are absent. IMPRESSION: 1. Upper gastrointestinal bleed. 2. Hypovolemic shock. 3. Blood loss anemia. 4. History of hypertension. 5. Arthritis. PLAN: Continue to follow with Intensive Medicine and GI. MMODL / IJN: [id number] /
[2017-04-16 17:27] LABS: Anisocytosis Slight; HCT 25.3 % (39.0-53.0); HGB 8.8 gm/dL (13.0-17.5); MCH 30.6 pg (25.0-35.0); MCHC 34.7 g/dL (31.0-37.0); MCV 88.2 fL (80.0-100.0); Mean Platelet Volume 12.1; RBC 2.87 m/uL (4.30-5.90); RDW 17.6 % (11.5-15.5); WBC 23.5 k/uL (3.8-10.6)
[2017-04-16 17:28] LABS: Platelet Count 69 k/uL (150-450)
[2017-04-16 18:10] LABS: Glucose,Whole Blood 152 mg/dL (75-99)
[2017-04-16 18:36] LABS: Anisocytosis Slight; HCT 27.3 % (39.0-53.0); HGB 9.1 gm/dL (13.0-17.5); MCH 29.7 pg (25.0-35.0); MCHC 33.3 g/dL (31.0-37.0); Mean Platelet Volume 12.5; RBC 3.07 m/uL (4.30-5.90); RDW 17.7 % (11.5-15.5); WBC 23.4 k/uL (3.8-10.6)
[2017-04-16 18:39] LABS: Platelet Count 74 k/uL (150-450)
[2017-04-16] MEDS: DEXTROSE 5% IN WATER 1,000 ML with SODIUM BICARB (1 MEQ/ML) 150 ML IV SCH (21:47)
[2017-04-16 22:45] LABS: Anisocytosis Slight; HCT 28.6 % (39.0-53.0); HGB 9.6 gm/dL (13.0-17.5); MCH 30.5 pg (25.0-35.0); MCHC 33.6 g/dL (31.0-37.0); MCV 90.7 fL (80.0-100.0); Mean Platelet Volume 11.5; RBC 3.16 m/uL (4.30-5.90); RDW 17.6 % (11.5-15.5); WBC 22.9 k/uL (3.8-10.6)
[2017-04-16 22:51] LABS: Platelet Count 72 k/uL (150-450)
--- NOTE | 2017-04-17 00:05 | CONS ---
CONSULTATION REASON FOR CONSULT: Renal failure. HISTORY OF PRESENT ILLNESS: Patient is a 89-year-old male who was admitted to the hospital On 04/14/2017 with weakness, increased edema. He was found to have a hemoglobin of 6.1 and which further dropped to 4.7 g/dL. The patient has received multiple packed RBCs transfusions. His hemoglobin is now at about 9.1 g/dL. The patient's serum creatinine is 3.2 mg/dL. He was at 2.87 on initial admission. We do not have any prior labs available for comparison. The patient's states that he has been borderline with a serum creatinine of about 1.4, as outpatient. Currently patient is hypotensive. He is maintained on Levophed at about 20 mcg. Urine output is maintained at about 35-50 mL an hour. Patient has an indwelling Michele catheter and he is intubated. PAST MEDICAL HISTORY: History of hypertension, RI, atrial fibrillation, chronic kidney disease, baseline creatinine about 1.4 according to his , peripheral vascular disease, COPD, dementia, BPH, history of prostatic cancer, hyperlipidemia. PAST SURGICAL HISTORY: Cardiac catheterization, tonsillectomy, repair of abdominal aortic aneurysm, right femoral endarterectomy. SOCIAL HISTORY: Patient is positive for the patient being a former smoker. MEDICATIONS: Prior to admission included Flomax, Lipitor, Lasix, Naprosyn, Norvasc. ALLERGIES: None. EXAMINATION: Patient is currently intubated. He is on the vent, sedated. He is not in any acute distress. Blood pressure is 116/70, heart rate about 70 per minute. Patient is afebrile. Examination of the heart S1, S2. Examination lungs bilateral breath sounds are heard. Abdomen is soft, nontender. Examination lower extremity shows edema 2+ bilaterally. 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 LABS SHOW: Sodium of 145, potassium 4.8, chloride 119, CO2 is 14, BUN 126, serum creatinine 3.2, hemoglobin 9.1 g/dL. The UA is not available. ASSESSMENT: 1. Acute kidney injury secondary to hypotension hypoperfusion. The patient was also on nonsteroidal anti-inflammatory agents prior to admission as noted on his med list. Currently, he is maintained on IV fluids and pressors. There are no nephrotoxic agents on board. We will continue to wean down the pressors as tolerated. 2. Metabolic acidosis, non gap secondary to renal failure and hypotension and hypoperfusion. Lactic acid was also elevated initially at 5.3, contributing to the acidosis, which would be more gap metabolic acidosis which patient initially had. The I will start the patient on IV bicarb. 3. Underlying gastrointestinal bleed, status post packed RBCs transfusion, maintained on IV Protonix, being seen being followed by Gastroenterology. 4. Vent dependent respiratory failure. 5. Hypotension secondary to gastrointestinal bleed, currently weaning down pressors once hemoglobin has improved. PLAN: Switch to IV bicarb. Continue IV hydration. Can use loop diuretics p.r.n. if urine output drops. Thank you for this consultation. We will continue to follow the patient with you during his hospitalization. MMODL / IJN: [id number] /
[2017-04-17 00:12] LABS: Glucose,Whole Blood 169 mg/dL (75-99)
[2017-04-17] MEDS: DOPamine DRIP 800 MG in DEXTROSE/WATER 1 500ML.BAG IV SCH (01:41)
[2017-04-17 06:15] LABS: Glucose,Whole Blood 153 mg/dL (75-99)
[2017-04-17 06:15] LABS: Anisocytosis Slight; HCT 28.6 % (39.0-53.0); MCH 31.2 pg (25.0-35.0); MCV 89.2 fL (80.0-100.0); Mean Platelet Volume 11.6; RBC 3.21 m/uL (4.30-5.90); RDW 18.2 % (11.5-15.5); WBC 21.8 k/uL (3.8-10.6)
[2017-04-17 06:27] LABS: Platelet Count 86 k/uL (150-450)
[2017-04-17 06:48] LABS: Calcium 8.4 mg/dL (8.4-10.2); Phosphorus 5.1 mg/dL (2.5-4.5); Potassium 3.7 mmol/L (3.5-5.1)
[2017-04-17 07:13] LABS: ABG Base Excess -5.5 mmol/L; ABG HCO3 19 mmol/L (21-25); ABG Oxygen Saturation 98.7 % (94-97); ABG PCO2 28 mmHg (35-45); ABG PH 7.43 (7.35-7.45); ABG PO2 114 mmHg (83-108); ABG TCO2 20 mmol/L (19-24)
[2017-04-17] MEDS: SODIUM CHLORIDE 0.9% 1,000 ML IV SCH (07:39)
[2017-04-17] MEDS: PANTOPRAZOLE 40 MG/10 ML VIAL IVP SCH ×2 (08:05→20:41)
[2017-04-17] MEDS: DEXTROSE 5% IN WATER 1,000 ML with SODIUM BICARB (1 MEQ/ML) 150 ML IV SCH ×2 (08:05→20:56)
[2017-04-17] MEDS: CHLORHEXIDINE GLUCONATE 15 ML CUP MUCOUS MEM SCH (08:05)
[2017-04-17] MEDS: PIPERACILLIN-TAZOBACTAM 3.375 GM in DEXTROSE/WATER 1 50ML.BAG IVPB SCH ×2 (08:47→20:34)
--- NOTE | 2017-04-17 09:19 | P.PN ---
Subjective Progress Note Date: 04/16/17 Principal diagnosis: Upper GI bleed, hemorrhagic shock Patient seen and examined, intubated and sedated, no acute events no indication for further active bleeding, family at bedside Objective - Vital Signs Vital signs: Vital Signs Temp 93.2 F L 04/17/17 08:00 Pulse 72 04/17/17 08:00 Resp 20 04/17/17 08:00 BP 116/81 04/17/17 08:00 Pulse Ox 100 04/17/17 08:00 Intake & Output 04/16/17 04/17/17 04/17/17 18:59 06:59 18:59 Intake Total 1614.838 5921.307 200 Output Total 333 770 200 Balance 1646.382 911.307 0 Weight 93.7 kg Intake: IV 1800 1400 200 Dextrose 5% in Water 1, 900 200 000 ml @ 100 mls/hr IV . [id number] [facility] with Sodium Bicarb (1 Meq/ml) 150 ml Rx#:[id number] Piperacillin-Tazobactam 3 50 .375 gm In Dextrose/Water 1 50ml.bag @ 12.5 mls/hr IVPB Q12HR [facility] Rx#: [id number] Sodium Chloride 0.9% 1, 1800 450 000 ml @ 150 mls/hr IV . Q6H40M [facility] Rx#:[id number] Intake, IV Titration 179.382 281.307 Amount Norepinephrin 16 mg-0.9% 110.715 188.724 Ns Pmx 16 mg In 250 ml @ Titrate IV .Q0M [facility] Rx#: [id number] Propofol 1,000 mg In 68.667 92.583 Empty Bag 1 bag @ Titrate IV .Q0M [facility] Rx#: [id number] Output: Urine 333 770 200 Other: Voiding Method Indwelling Catheter Indwelling Catheter - Respiratory Details: intubated on vent - Gastrointestinal Gastrointestinal Comment(s): soft non distended, NG in place output bilious - Psychiatric Psychiatric: Present: A&O x's 3 - Labs CBC & Chem 7: 04/17/17 05:50 04/17/17 05:50 Labs: Abnormal Lab Results - Last 24 Hours (Table) 04/16/17 04/16/17 04/16/17 Range/Units 10:12 12:13 17:11 WBC 22.2 H 23.5 H (3.8-10.6) k/uL RBC 3.25 L 2.87 L (4.30-5.90) m/uL Hgb 10.0 L 8.8 L (13.0-17.5) gm/dL Hct 28.9 L 25.3 L (39.0-53.0) % RDW 17.7 H 17.6 H (11.5-15.5) % Plt Count 91 L 69 L (150-450) k/uL Neutrophils # (Manual) 19.70 H (1.3-7.7) k/uL Lymphocytes # (Manual) 0.44 L (1.0-4.8) k/uL Monocytes # (Manual) 2.00 H (0-1.0) k/uL Nucleated RBCs 1 H (0-0) /100 WBC ABG pCO2 (35-45) mmHg ABG pO2 (83-108) mmHg ABG HCO3 (21-25) mmol/L ABG O2 Saturation (94-97) % Sodium (137-145) mmol/L Chloride (98-107) mmol/L Carbon Dioxide (22-30) mmol/L BUN (9-20) mg/dL Creatinine (0.66-1.25) mg/dL Glucose (74-99) mg/dL POC Glucose (mg/dL) 147 H (75-99) mg/dL Phosphorus (2.5-4.5) mg/dL 04/16/17 04/16/17 04/16/17 Range/Units 18:08 18:10 22:32 WBC 23.4 H 22.9 H (3.8-10.6) k/uL RBC 3.07 L 3.16 L (4.30-5.90) m/uL Hgb 9.1 L 9.6 L (13.0-17.5) gm/dL Hct 27.3 L 28.6 L (39.0-53.0) % RDW 17.7 H 17.6 H (11.5-15.5) % Plt Count 74 L 72 L (150-450) k/uL Neutrophils # (Manual) (1.3-7.7) k/uL Lymphocytes # (Manual) (1.0-4.8) k/uL Monocytes # (Manual) (0-1.0) k/uL Nucleated RBCs (0-0) /100 WBC ABG pCO2 (35-45) mmHg ABG pO2 (83-108) mmHg ABG HCO3 (21-25) mmol/L ABG O2 Saturation (94-97) % Sodium (137-145) mmol/L Chloride (98-107) mmol/L Carbon Dioxide (22-30) mmol/L BUN (9-20) mg/dL Creatinine (0.66-1.25) mg/dL Glucose (74-99) mg/dL POC Glucose (mg/dL) 152 H (75-99) mg/dL Phosphorus (2.5-4.5) mg/dL 04/17/17 04/17/17 04/17/17 Range/Units 00:10 05:50 05:50 WBC 21.8 H (3.8-10.6) k/uL RBC 3.21 L (4.30-5.90) m/uL Hgb 10.0 L (13.0-17.5) gm/dL Hct 28.6 L (39.0-53.0) % RDW 18.2 H (11.5-15.5) % Plt Count 86 L (150-450) k/uL Neutrophils # (Manual) (1.3-7.7) k/uL Lymphocytes # (Manual) (1.0-4.8) k/uL Monocytes # (Manual) (0-1.0) k/uL Nucleated RBCs (0-0) /100 WBC ABG pCO2 (35-45) mmHg ABG pO2 (83-108) mmHg ABG HCO3 (21-25) mmol/L ABG O2 Saturation (94-97) % Sodium 147 H (137-145) mmol/L Chloride 118 H (98-107) mmol/L Carbon Dioxide 18 L (22-30) mmol/L BUN 124 H* (9-20) mg/dL Creatinine 3.50 H (0.66-1.25) mg/dL Glucose 149 H (74-99) mg/dL POC Glucose (mg/dL) 169 H (75-99) mg/dL Phosphorus 5.1 H (2.5-4.5) mg/dL 04/17/17 04/17/17 Range/Units 06:13 07:07 WBC (3.8-10.6) k/uL RBC (4.30-5.90) m/uL Hgb (13.0-17.5) gm/dL Hct (39.0-53.0) % RDW (11.5-15.5) % Plt Count (150-450) k/uL Neutrophils # (Manual) (1.3-7.7) k/uL Lymphocytes # (Manual) (1.0-4.8) k/uL Monocytes # (Manual) (0-1.0) k/uL Nucleated RBCs (0-0) /100 WBC ABG pCO2 28 L (35-45) mmHg ABG pO2 114 H (83-108) mmHg ABG HCO3 19 L (21-25) mmol/L ABG O2 Saturation 98.7 H (94-97) % Sodium (137-145) mmol/L Chloride (98-107) mmol/L Carbon Dioxide (22-30) mmol/L BUN (9-20) mg/dL Creatinine (0.66-1.25) mg/dL Glucose (74-99) mg/dL POC Glucose (mg/dL) 153 H (75-99) mg/dL Phosphorus (2.5-4.5) mg/dL Assessment and Plan Assessment: Upper GI bleed, bleeding ulcer at GE junction, hemodynamic shock, CHF, history of A. fib, CKD, history of AAA repair Plan: Patient still in critical condition, no sign of active bleeding, lengthy discussion with the patients and family, they do not wish to proceed with any surgical intervention if the patient is to rebleed or need other surgical intervention given the patients poor prognosis. I agree patient is poor surgical candidate. Should any further concerns arise for surgery please contact me.
--- NOTE | 2017-04-17 10:08 | XR ---
EXAMINATION TYPE: XR chest 1V portable DATE OF EXAM: 04/17/2017 COMPARISON: 04/17/2015 HISTORY: Shortness of breath TECHNIQUE: Single frontal view of the chest is obtained. FINDINGS: Bilateral infiltrate and pleural effusion stable. ET, NG, central line stable. Cardiomegal y, atherosclerotic change aorta and degenerative change of the spine. No pneumothorax. IMPRESSION: Bilateral airspace disease and pleural effusion underlying mild venous congestion not ex cluded. Findings stable.
--- NOTE | 2017-04-17 10:45 | P.PN ---
Subjective Progress Note Date: 04/17/17 Principal diagnosis: GI bleed Status post EGD 2 days ago for evaluation of upper GI bleed with findings of active bleeding from distal esophageal ulcer at the GE junction status post injection and Endo Clip placement. Nursing reports dark red clotty bowel movement last night as well as night before. Low dose Levophed. Intubated. Sedated. Hemoglobin 10. BUN 124. Creatinine 3.5. Hypothermic 93.2. Objective - Vital Signs Vital signs: Vital Signs Temp 93.2 F L 04/17/17 08:00 Pulse 49 L 04/17/17 10:00 Resp 20 04/17/17 10:00 BP 101/50 04/17/17 10:00 Pulse Ox 100 04/17/17 10:00 Intake & Output 04/16/17 04/17/17 04/17/17 18:59 06:59 18:59 Intake Total 7254.790 7709.307 416.250 Output Total 333 770 350 Balance 1646.382 911.307 66.250 Weight 93.7 kg 93.7 kg Intake: IV 1800 1400 400 Dextrose 5% in Water 1, 900 400 000 ml @ 100 mls/hr IV . [id number] [facility] with Sodium Bicarb (1 Meq/ml) 150 ml Rx#:[id number] Piperacillin-Tazobactam 3 50 .375 gm In Dextrose/Water 1 50ml.bag @ 12.5 mls/hr IVPB Q12HR [facility] Rx#: [id number] Sodium Chloride 0.9% 1, 1800 450 000 ml @ 150 mls/hr IV . Q6H40M [facility] Rx#:[id number] Intake, IV Titration 179.382 281.307 16.250 Amount Norepinephrin 16 mg-0.9% 110.715 188.724 16.250 Ns Pmx 16 mg In 250 ml @ Titrate IV .Q0M [facility] Rx#: [id number] Propofol 1,000 mg In 68.667 92.583 Empty Bag 1 bag @ Titrate IV .Q0M [facility] Rx#: [id number] Output: Urine 333 770 350 Other: Voiding Method Indwelling Catheter Indwelling Catheter Indwelling Catheter - Exam General appearance: The patient is intubated sedated HET: Head is normocephalic and atraumatic. Pupils are equal and reactive. Oropharynx is clear without lesions. Orogastric tube with old coffee-ground colored gastric fluid. Neck: Supple without lymphadenopathy. Trachea midline. Heart: S1 S2. Lungs: No crackles or wheezes are heard. Diminished bases bilaterally. Abdomen: Soft, nontender, nondistended with bowel sounds. No peritoneal signs. No palpable organomegaly or masses. Extremities: Normal skin color and turgor. No cyanosis, rash, ulceration, clubbing, or edema. Radial and pedal pulses are 2/4 bilaterally. Michele with clear yellow urine. Neurological: Unable to assess intubated sedated. - Labs CBC & Chem 7: 04/17/17 05:50 04/17/17 05:50 Labs: Abnormal Lab Results - Last 24 Hours (Table) 04/16/17 04/16/17 04/16/17 Range/Units 10:12 12:13 17:11 WBC 22.2 H 23.5 H (3.8-10.6) k/uL RBC 3.25 L 2.87 L (4.30-5.90) m/uL Hgb 10.0 L 8.8 L (13.0-17.5) gm/dL Hct 28.9 L 25.3 L (39.0-53.0) % RDW 17.7 H 17.6 H (11.5-15.5) % Plt Count 91 L 69 L (150-450) k/uL Neutrophils # (Manual) 19.70 H (1.3-7.7) k/uL Lymphocytes # (Manual) 0.44 L (1.0-4.8) k/uL Monocytes # (Manual) 2.00 H (0-1.0) k/uL Nucleated RBCs 1 H (0-0) /100 WBC ABG pCO2 (35-45) mmHg ABG pO2 (83-108) mmHg ABG HCO3 (21-25) mmol/L ABG O2 Saturation (94-97) % Sodium (137-145) mmol/L Chloride (98-107) mmol/L Carbon Dioxide (22-30) mmol/L BUN (9-20) mg/dL Creatinine (0.66-1.25) mg/dL Glucose (74-99) mg/dL POC Glucose (mg/dL) 147 H (75-99) mg/dL Phosphorus (2.5-4.5) mg/dL 03/12/18 03/12/18 03/12/18 Range/Units 18:08 18:10 22:32 WBC 23.4 H 22.9 H (3.8-10.6) k/uL RBC 3.07 L 3.16 L (4.30-5.90) m/uL Hgb 9.1 L 9.6 L (13.0-17.5) gm/dL Hct 27.3 L 28.6 L (39.0-53.0) % RDW 17.7 H 17.6 H (11.5-15.5) % Plt Count 74 L 72 L (150-450) k/uL Neutrophils # (Manual) (1.3-7.7) k/uL Lymphocytes # (Manual) (1.0-4.8) k/uL Monocytes # (Manual) (0-1.0) k/uL Nucleated RBCs (0-0) /100 WBC ABG pCO2 (35-45) mmHg ABG pO2 (83-108) mmHg ABG HCO3 (21-25) mmol/L ABG O2 Saturation (94-97) % Sodium (137-145) mmol/L Chloride (98-107) mmol/L Carbon Dioxide (22-30) mmol/L BUN (9-20) mg/dL Creatinine (0.66-1.25) mg/dL Glucose (74-99) mg/dL POC Glucose (mg/dL) 152 H (75-99) mg/dL Phosphorus (2.5-4.5) mg/dL 04/17/17 04/17/17 04/17/17 Range/Units 00:10 05:50 05:50 WBC 21.8 H (3.8-10.6) k/uL RBC 3.21 L (4.30-5.90) m/uL Hgb 10.0 L (13.0-17.5) gm/dL Hct 28.6 L (39.0-53.0) % RDW 18.2 H (11.5-15.5) % Plt Count 86 L (150-450) k/uL Neutrophils # (Manual) (1.3-7.7) k/uL Lymphocytes # (Manual) (1.0-4.8) k/uL Monocytes # (Manual) (0-1.0) k/uL Nucleated RBCs (0-0) /100 WBC ABG pCO2 (35-45) mmHg ABG pO2 (83-108) mmHg ABG HCO3 (21-25) mmol/L ABG O2 Saturation (94-97) % Sodium 147 H (137-145) mmol/L Chloride 118 H (98-107) mmol/L Carbon Dioxide 18 L (22-30) mmol/L BUN 124 H* (9-20) mg/dL Creatinine 3.50 H (0.66-1.25) mg/dL Glucose 149 H (74-99) mg/dL POC Glucose (mg/dL) 169 H (75-99) mg/dL Phosphorus 5.1 H (2.5-4.5) mg/dL 04/17/17 04/17/17 Range/Units 06:13 07:07 WBC (3.8-10.6) k/uL RBC (4.30-5.90) m/uL Hgb (13.0-17.5) gm/dL Hct (39.0-53.0) % RDW (11.5-15.5) % Plt Count (150-450) k/uL Neutrophils # (Manual) (1.3-7.7) k/uL Lymphocytes # (Manual) (1.0-4.8) k/uL Monocytes # (Manual) (0-1.0) k/uL Nucleated RBCs (0-0) /100 WBC ABG pCO2 28 L (35-45) mmHg ABG pO2 114 H (83-108) mmHg ABG HCO3 19 L (21-25) mmol/L ABG O2 Saturation 98.7 H (94-97) % Sodium (137-145) mmol/L Chloride (98-107) mmol/L Carbon Dioxide (22-30) mmol/L BUN (9-20) mg/dL Creatinine (0.66-1.25) mg/dL Glucose (74-99) mg/dL POC Glucose (mg/dL) 153 H (75-99) mg/dL Phosphorus (2.5-4.5) mg/dL Microbiology - Last 24 Hours (Table) 04/15/17 09:36 Gram Stain - Final Sputum Sputum Culture - Final Assessment and Plan (1) Acute upper GI bleed Narrative/Plan: Secondary to active bleeding GE junction ulceration status post EGD with epinephrine injection and Hemoclip placement Current Visit: Yes Status: Acute Code(s): K92.2 - GASTROINTESTINAL HEMORRHAGE, UNSPECIFIED SNOMED Code(s): 11429963 (2) Acute blood loss anemia Current Visit: Yes Status: Acute Code(s): D62 - ACUTE POSTHEMORRHAGIC ANEMIA SNOMED Code(s): 221217981 (3) Hypothermia Current Visit: Yes Status: Acute Code(s): T68.XXXA - HYPOTHERMIA, INITIAL ENCOUNTER SNOMED Code(s): 842269107 (4) Acute kidney injury Current Visit: Yes Status: Acute Code(s): N17.9 - ACUTE KIDNEY FAILURE, UNSPECIFIED SNOMED Code(s): 07681740 (5) Acute respiratory failure Current Visit: Yes Status: Acute Code(s): J96.00 - ACUTE RESPIRATORY FAILURE , UNSP W HYPOXIA OR HYPERCAPNIA SNOMED Code(s): 08790874 Plan: 1. Overall prognosis is guarded. CBC every 6 hours. Continue with Protonix twice a day. Blood transfusions as indicated. Assessment and plan a care discussed with Dr. Iniguez
--- NOTE | 2017-04-17 12:21 | P.PN ---
Subjective Progress Note Date: 04/17/17 Principal diagnosis: Acute upper GI bleeding and acute hypoxic respiratory failure 89-year-old male patient, known history of congestion heart failure, chronic renal failure, chronic atrial fibrillation who has been taking aspirin and nonsteroidal anti-inflammatory medication outpatient basis. The patient came into the emergency department with episodes of hematemesis and the patient vomited bright red blood around 3-4 times prior to his arrival. In the emergency department he had 2-3 more episodes. The patient was taken apparently aspirin and Naprosyn. He is denying any previous history of alcoholism. He admitted to have some dark stools over the past few days. No chest pain. No syncope. He was feeling increasingly weak and tired. He has chronic lower extremity edema. No previous episodes of GI bleed. The patient was seen in the MRSA problem by gastroenterology. His initial hemoglobin was 6.1 and subsequently dropped down to 4.7. His platelet count was at 135 and dropped to 107. Correlation profile is within normal. The patient is prerenal with a BUN of 108 and creatinine of 2.8. Lipase level was apparently on 32. Lactic acid level was at 5.3 and is currently down to 2.8. Blood was ordered however there has been difficulty in obtaining the right match due to blood compatibility. Ultimately, 2 units of packed RBC were found to be available and the patient is currently getting his first unit. He got moved to the intensive care unit. He is also on IV fluids. [facility] that the patient may get overloaded with fluids. He was placed only on 75 mL an hour. I'm going to give him at least 2-3 L of bolus immediately in the ICU. He was tachycardic in the MRSA problem and the heart rate has slowed down. Most recent blood pressures 120/65. He has 2 peripheral IV lines. The patient was kept on IV Protonix. He is known to have also abdominal aortic aneurysm that has been repaired many years back. He has chronic atrial fibrillation as mentioned. On 04/15/2017, the patient is intensive care units. Note that overnight the patient continued to have episodes of upper GI bleed. NG tube was successfully inserted and the patient had a total of 200 mL of bloody drainage overnight. The patient was still throwing up blood episodically around the NG tube. GI was contacted on multiple occasions and ultimately this morning at around 7:30 AM preparations were done for EGD. By that time the patient was becoming more lethargic, short of breath, tachypneic and he was also developing significant hypoxemia with pulse ox dropped down to 84% while being on oxygen at 3 L/m nasal cannula. Note that overnight, the patient was given boluses of IV fluids and he received a total of 4 L of fluid bolus and he received a total of 5 units of packed RBC. With transfusion the hemoglobin came from as low as 4.7 up to 9.3. Nevertheless there was ongoing issues with bleeding and for that reason EGD was indicated. Based on his overall condition, I opted to intubate the patient to protect his airway. This was done and the intensive care unit without any major difficulties. Following that the patient was x-ray mechanical ventilator and currently the patient assist-control mode at the rate of 20, tidal volume 500 with FiO2 100% and PEEP of 5 and the blood gases still pending. I also inserted a triple lumen catheter in the left subclavian vein. Patient is currently on pressors and currently is on levo fed at the rate of 45 mics. Urine output is low. IV fluid is running at 75 and this will be increased up to 150 mL an hour. The patient is on Diprivan at 25 mics per KG per minute. Post intubation chest x-ray showed no evidence of any pulmonary edema. As such I suspect that the patient could've aspirated and the cracking is being Initiated is probably related to upper airway obstruction related to aspiration. In any rate, currently the patient is intubated and the blood gases are still pending for now. The patient is an 80 fibrillation rate is controlled for now. There is also drop in the plated count down to 84 and a platelet transfusion will also ordered. Renal function is improving and creatinine is down to 2.5. Actiq acid was at 2.8 and currently is down to 1. On today's blood work, the liver function tests within normal limits, the albumin is down to 1.9. Patient was reevaluated today on 04/16/2017, remains on mechanical ventilation, tidal volume of 500 assist control rate of 20 FiO2 of 35% and PEEP of 5. Patient remains on norepinephrine, about to 20 mics per minute, and we plan to titrate this down since the blood pressure seems to be stabilizing. His renal functioning seems to be getting worse, hence I have consulted nephrology to evaluate today. Patient remains on IV fluid at 150 mL per hour, good urine output is noted, however looking at his electrolytes, the patient seems to have a hyperchloremic non-anion gap metabolic acidosis. His bicarb is 14, BUN is 126 , and his creatinine is 3.20. ABG showed a pO2 of 171 pCO2 of 25 pH of 7.41. Hemoglobin today is holding at 10.0 WBC count is 22.4 platelets are 91,000. Chest x-ray shows bibasilar airspace disease and pleural effusion with mild vascular congestion. Suspect a component of right lower lobe aspiration pneumonia based on the chest x-ray. Reevaluated today on 04/17/2017, patient remains on mechanical ventilation, ventilator settings are basically the same as noted above. ABG showed a pO2 of 114 pCO2 of 28 pH of 7.43 BUN is 124 creatinine is 3.50. Patient is status post EGD 2 days ago, and he was found to have esophageal ulcer at the GE junction, status post injection and Endo Clip placement. Patient remains on a low dose of dopamine at 2.5 mcg/kg/m, his urine output is excellent, continues to have intermittent episodes of bradycardia, but no hypotension along with that. Hemoglobin today is 10.0. Bicarb is 18. Objective - Vital Signs Vital signs: Vital Signs Temp 93.2 F L 04/17/17 08:00 Pulse 49 L 04/17/17 10:00 Resp 20 04/17/17 10:00 BP 101/50 04/17/17 10:00 Pulse Ox 100 04/17/17 10:00 Intake & Output 04/16/17 04/17/17 04/17/17 18:59 06:59 18:59 Intake Total 5979.677 6740.307 416.250 Output Total 333 770 350 Balance 1646.382 911.307 66.250 Weight 93.7 kg 93.7 kg Intake: IV 1800 1400 400 Dextrose 5% in Water 1, 900 400 000 ml @ 100 mls/hr IV . [id number] DERIAN with Sodium Bicarb (1 Meq/ml) 150 ml Rx#:[id number] Piperacillin-Tazobactam 3 50 .375 gm In Dextrose/Water 1 50ml.bag @ 12.5 mls/hr IVPB Q12HR DERIAN Rx#: [id number] Sodium Chloride 0.9% 1, 1800 450 000 ml @ 150 mls/hr IV . Q6H40M DERIAN Rx#:[id number] Intake, IV Titration 179.382 281.307 16.250 Amount Norepinephrin 16 mg-0.9% 110.715 188.724 16.250 Ns Pmx 16 mg In 250 ml @ Titrate IV .Q0M DERIAN Rx#: [id number] Propofol 1,000 mg In 68.667 92.583 Empty Bag 1 bag @ Titrate IV .Q0M DERIAN Rx#: [id number] Output: Urine 333 770 350 Other: Voiding Method Indwelling Catheter Indwelling Catheter Indwelling Catheter - Exam General appearance: alert, in no apparent distress, patient is on mechanical ventilation, followed all simple instructions off propofol. Head exam: Atraumatic, normocephalic Eye exam: PERRLA, EOMI ENT exam: Endotracheal tube is intact, moist mucous membranes. No icterus. Neck exam: Neck supple no neck masses no thyromegaly, endotracheal tube is intact. Respiratory exam: Diminished breath sounds and crackles mostly at the right base otherwise unremarkable. Symmetrical chest expansion noted. Cardiovascular Exam: Irregular rhythm, no S3 gallop, 2/6 systolic murmur thought the precordium GI/Abdominal exam: Soft, nontender, no megaly, no rebound, positive bowel sounds. Rectal exam: Not performed Extremities exam: No clubbing edema or cyanosis. Good pulses bilaterally. Neurological exam: No gross focal neurologic deficit alert oriented 3 Psychiatric exam: Normal mood affect and normal mental status examination. Skin exam: Present: warm, dry, intact, pallor. No cyanosis. - Labs CBC & Chem 7: 04/17/17 05:50 04/17/17 05:50 Labs: Abnormal Lab Results - Last 24 Hours (Table) 04/16/17 04/16/17 04/16/17 Range/Units 10:12 17:11 18:08 WBC 22.2 H 23.5 H (3.8-10.6) k/uL RBC 2.87 L (4.30-5.90) m/uL Hgb 8.8 L (13.0-17.5) gm/dL Hct 25.3 L (39.0-53.0) % RDW 17.6 H (11.5-15.5) % Plt Count 69 L (150-450) k/uL Neutrophils # (Manual) 19.70 H (1.3-7.7) k/uL Lymphocytes # (Manual) 0.44 L (1.0-4.8) k/uL Monocytes # (Manual) 2.00 H (0-1.0) k/uL Nucleated RBCs 1 H (0-0) /100 WBC ABG pCO2 (35-45) mmHg ABG pO2 (83-108) mmHg ABG HCO3 (21-25) mmol/L ABG O2 Saturation (94-97) % Sodium (137-145) mmol/L Chloride (98-107) mmol/L Carbon Dioxide (22-30) mmol/L BUN (9-20) mg/dL Creatinine (0.66-1.25) mg/dL Glucose (74-99) mg/dL POC Glucose (mg/dL) 152 H (75-99) mg/dL Phosphorus (2.5-4.5) mg/dL 04/16/17 04/16/17 04/17/17 Range/Units 18:10 22:32 00:10 WBC 23.4 H 22.9 H (3.8-10.6) k/uL RBC 3.07 L 3.16 L (4.30-5.90) m/uL Hgb 9.1 L 9.6 L (13.0-17.5) gm/dL Hct 27.3 L 28.6 L (39.0-53.0) % RDW 17.7 H 17.6 H (11.5-15.5) % Plt Count 74 L 72 L (150-450) k/uL Neutrophils # (Manual) (1.3-7.7) k/uL Lymphocytes # (Manual) (1.0-4.8) k/uL Monocytes # (Manual) (0-1.0) k/uL Nucleated RBCs (0-0) /100 WBC ABG pCO2 (35-45) mmHg ABG pO2 (83-108) mmHg ABG HCO3 (21-25) mmol/L ABG O2 Saturation (94-97) % Sodium (137-145) mmol/L Chloride (98-107) mmol/L Carbon Dioxide (22-30) mmol/L BUN (9-20) mg/dL Creatinine (0.66-1.25) mg/dL Glucose (74-99) mg/dL POC Glucose (mg/dL) 169 H (75-99) mg/dL Phosphorus (2.5-4.5) mg/dL 04/17/17 04/17/17 04/17/17 Range/Units 05:50 05:50 06:13 WBC 21.8 H (3.8-10.6) k/uL RBC 3.21 L (4.30-5.90) m/uL Hgb 10.0 L (13.0-17.5) gm/dL Hct 28.6 L (39.0-53.0) % RDW 18.2 H (11.5-15.5) % Plt Count 86 L (150-450) k/uL Neutrophils # (Manual) (1.3-7.7) k/uL Lymphocytes # (Manual) (1.0-4.8) k/uL Monocytes # (Manual) (0-1.0) k/uL Nucleated RBCs (0-0) /100 WBC ABG pCO2 (35-45) mmHg ABG pO2 (83-108) mmHg ABG HCO3 (21-25) mmol/L ABG O2 Saturation (94-97) % Sodium 147 H (137-145) mmol/L Chloride 118 H (98-107) mmol/L Carbon Dioxide 18 L (22-30) mmol/L BUN 124 H* (9-20) mg/dL Creatinine 3.50 H (0.66-1.25) mg/dL Glucose 149 H (74-99) mg/dL POC Glucose (mg/dL) 153 H (75-99) mg/dL Phosphorus 5.1 H (2.5-4.5) mg/dL 04/17/17 Range/Units 07:07 WBC (3.8-10.6) k/uL RBC (4.30-5.90) m/uL Hgb (13.0-17.5) gm/dL Hct (39.0-53.0) % RDW (11.5-15.5) % Plt Count (150-450) k/uL Neutrophils # (Manual) (1.3-7.7) k/uL Lymphocytes # (Manual) (1.0-4.8) k/uL Monocytes # (Manual) (0-1.0) k/uL Nucleated RBCs (0-0) /100 WBC ABG pCO2 28 L (35-45) mmHg ABG pO2 114 H (83-108) mmHg ABG HCO3 19 L (21-25) mmol/L ABG O2 Saturation 98.7 H (94-97) % Sodium (137-145) mmol/L Chloride (98-107) mmol/L Carbon Dioxide (22-30) mmol/L BUN (9-20) mg/dL Creatinine (0.66-1.25) mg/dL Glucose (74-99) mg/dL POC Glucose (mg/dL) (75-99) mg/dL Phosphorus (2.5-4.5) mg/dL Microbiology - Last 24 Hours (Table) 04/15/17 09:36 Gram Stain - Final Sputum Sputum Culture - Final Assessment and Plan Assessment: 1 acute upper GI bleeding, secondary to distal esophageal ulcer. Status post injection and Endo Clip placement. Remains on Protonix at 40 mg IV push every 12 hours. On 04/15/2017, the patient is still bleeding actively. NG tube is in place. He has been resuscitated with IV fluids and received a total of 4 L of IV fluid and 5 units of packed RBC. Awaiting EGD. Hemodynamically he is condition has gotten worse. He became progressively hypotensive and he had to be placed on pressors and currently is on 45 mics of norepinephrine infusion. He is being given IV fluids. His most recent hemoglobin is at 9.3. Currently is intubated on a mechanical ventilator. There is a obvious possibility that the patient have aspirated which put him in significant respiratory distress and acute hypoxic respiratory failure. As such the patient was intubated and placed on a mechanical ventilation. Post intubation chest x-ray shows no evidence of pneumonia. Blood gases shows adequate oxygenation. On 04/16/2017, patient does not have any active bleeding at present, patient seems to be doing well overall, remains on norepinephrine at 20 g which I plan to taper and hopefully discontinue today. Renal functioning seems to be getting worse hence a nephrology consult was initiated. In the meantime continue IV fluids, patient does have non-anion gap hyperchloremic metabolic acidosis. On 04/17/2017, patient had one episode of bleeding last night, not clear whether this is old blood or new active bleeding. Remains on mechanical ventilation, patient be given a trial of weaning/spontaneous breathing trial. Off propofol the patient was noted to be extremely appropriate. And he seems to be hemodynamically stable. 2 profound anemia secondary to GI related blood loss. Received a total of 7 units of packed RBCs since admission. 3 acute kidney injury, secondary to intravascular volume depletion. The patient 's creatinine is improving and the creatinine is now 3.20. 4 acute hypoxic respiratory failure currently intubated on a mechanical ventilator, possible aspiration. Right lower lobe pneumonia suspected, patient is on Zosyn. 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 fib rhythm 11 thrombocytopenia 12 leukocytosis Recommendation: Continue ventilatory support, will give the patient a spontaneous breathing trial today, and depending on his overall condition may consider weaning and extubation. Discussed with his and his family members at bedside. Critical care time is 35 minutes. Time with Patient: Greater than 30
[2017-04-17] MEDS ORDERED: SODIUM CHLORIDE 0.9% 500 ML IV ONE (12:31)
[2017-04-17 13:08] LABS: Glucose,Whole Blood 170 mg/dL (75-99)
[2017-04-17 13:50] LABS: Anisocytosis Slight; MCH 30.9 pg (25.0-35.0); MCHC 34.9 g/dL (31.0-37.0); MCV 88.4 fL (80.0-100.0); Mean Platelet Volume 12.8; RBC 2.26 m/uL (4.30-5.90); RDW 17.9 % (11.5-15.5)
[2017-04-17 13:59] LABS: Band Neutrophils % 1 %; Metamyelocytes % 2 %; Myelocytes % 2 %; Neutrophils % (M) 85 %; Nucleated Red Blood Cells 7 /100 WBC (0-0); Total Cells Counted 200
[2017-04-17 14:00] LABS: Eosinophils # (M) 0.14 k/uL (0-0.7); Lymphocytes # (M) 0.98 k/uL (1.0-4.8); Metamyelocytes # (M) 0.28 k/uL (0); Myelocytes # (M) 0.28 k/uL (0); Poikilocytosis (M) Present
[2017-04-17 14:01] LABS: Polychromasia Present; Toxic Granulation Present
[2017-04-17 14:04] LABS: Platelet Count 60 k/uL (150-450)
[2017-04-17 14:15] LABS: Anisocytosis Slight; HCT 23.5 % (39.0-53.0); HGB 8.3 gm/dL (13.0-17.5); MCH 31.3 pg (25.0-35.0); MCHC 35.1 g/dL (31.0-37.0); MCV 89.1 fL (80.0-100.0); Mean Platelet Volume 12.7; RBC 2.64 m/uL (4.30-5.90); RDW 17.8 % (11.5-15.5)
[2017-04-17 14:18] LABS: Platelet Count 64 k/uL (150-450)
[2017-04-17 18:15] LABS: Glucose,Whole Blood 133 mg/dL (75-99)
[2017-04-17 18:44] LABS: Anisocytosis Slight; HCT 24.6 % (39.0-53.0); HGB 8.4 gm/dL (13.0-17.5); MCH 30.4 pg (25.0-35.0); MCV 89.3 fL (80.0-100.0); Mean Platelet Volume 12.7; RBC 2.75 m/uL (4.30-5.90); RDW 17.9 % (11.5-15.5); WBC 17.1 k/uL (3.8-10.6)
[2017-04-17 18:47] LABS: Platelet Count 71 k/uL (150-450)
--- NOTE | 2017-04-17 19:16 | PN ---
PROGRESS NOTE CHIEF COMPLAINT: Upper GI bleed and hypovolemic shock. HISTORY OF PRESENT ILLNESS: This patient is holding his own. The pressors are being lowered. There has not been definite evidence of any recurrence of bleeding. He is having problems maintaining a pulse and sometimes dropping into the 30s. Urinary output seems to be reasonable and creatinine is coming down slightly. PHYSICAL EXAMINATION: He remains pale and he is on a ventilator. Breath sounds are heard bilaterally and the remainder of his exam is unremarkable at this time. IMPRESSION: 1. Status post massive upper gastrointestinal bleed. 2. Hypovolemic shock. 3. Blood loss anemia. 4. Renal failure. 5. Bradycardia. PLAN: Continue to follow with Intensive Medicine and hope that he can continue to make steady improvement. MMODL / IJN: [id number] /
--- NOTE | 2017-04-17 20:16 | PN ---
PROGRESS NOTE The patient is seen for followup for acute kidney injury. He is currently off of the Levophed. Blood pressure is at about 110-102 mmHg. The patient has not had any active bleeding. He is awake. He continues to have good urine output now at about 60-80 mL an hour. The patient was started on bicarb drip yesterday. EXAMINATION: This morning blood pressure was 126/86, heart rate of 68 per minute. Patient is afebrile. Examination of the heart S1, S2. Examination of the lungs bilateral breath sounds are heard. Abdomen is soft, nontender. Examination of lower extremity shows edema 1+ bilaterally. [employer] exam is grossly intact. Patient is following commands. LABS: Hemoglobin this morning of 7.0, white cell count 14.0, sodium 147, potassium 3.7, chloride 118, BUN of 124, serum creatinine 3.5. ASSESSMENT: 1. Acute kidney injury, acute tubular necrosis secondary to hypotension, hypoperfusion currently nonoliguric with improved urine output. Continue with bicarb drip for now. Repeat labs in a.m. and avoid nephrotoxic medications. 2. Metabolic acidosis secondary to renal failure and lactic acidosis, currently improved. 3. Mild hypernatremia. Continue with the bicarb drip which is slightly hypotonic and will recheck labs in a.m. 4. Disproportionately elevated BUN secondary to underlying gastrointestinal bleed. 5. Severe anemia with a hemoglobin at 4 g/dL secondary to gastrointestinal bleed, status post multiple packed RBCs transfusion. PLAN: Continue with the bicarb drip. Repeat labs in a.m. and continue to avoid nephrotoxic agents. MMODL / IJN: [id number] /
[2017-04-17 23:42] LABS: Anisocytosis Slight; HCT 27.3 % (39.0-53.0); HGB 9.1 gm/dL (13.0-17.5); MCHC 33.1 g/dL (31.0-37.0); MCV 90.5 fL (80.0-100.0); Mean Platelet Volume 12.3; RBC 3.02 m/uL (4.30-5.90); WBC 16.2 k/uL (3.8-10.6)
[2017-04-17 23:48] LABS: Platelet Count 70 k/uL (150-450)
[2017-04-18 01:18] LABS: Glucose,Whole Blood 127 mg/dL (75-99)
[2017-04-18 05:02] LABS: Anisocytosis Slight; HCT 23.5 % (39.0-53.0); HGB 8.3 gm/dL (13.0-17.5); MCH 31.5 pg (25.0-35.0); MCHC 35.5 g/dL (31.0-37.0); MCV 88.7 fL (80.0-100.0); Mean Platelet Volume 12.6; RBC 2.65 m/uL (4.30-5.90); RDW 18.2 % (11.5-15.5); WBC 17.1 k/uL (3.8-10.6)
[2017-04-18 05:04] LABS: Platelet Count 76 k/uL (150-450)
[2017-04-18 05:11] LABS: Calcium 8.2 mg/dL (8.4-10.2)
[2017-04-18 05:13] LABS: Phosphorus 5.2 mg/dL (2.5-4.5); Potassium 4.8 mmol/L (3.5-5.1)
[2017-04-18 05:53] LABS: Glucose,Whole Blood 119 mg/dL (75-99)
[2017-04-18] MEDS ORDERED: DEXTROSE 5% IN WATER 1,000 ML IV SCH (06:15)
--- NOTE | 2017-04-18 08:25 | XR ---
EXAMINATION TYPE: XR chest 1V portable DATE OF EXAM: 04/18/2017 COMPARISON: 04/17/2017 HISTORY: Shortness of breath TECHNIQUE: Single frontal view of the chest is obtained. FINDINGS: Bilateral infiltrate and pleural effusion stable. central line stable. Cardiomegaly, athe rosclerotic change aorta and degenerative change of the spine. No pneumothorax. ET and NG tube have b een removed. Arthropathy of the shoulders noted. Atherosclerotic change aorta. IMPRESSION: 1. Stable bilateral pleural-parenchymal changes. Differential includes pneumonia and CHF.
[2017-04-18] MEDS: PANTOPRAZOLE 40 MG/10 ML VIAL IVP SCH ×2 (09:23→20:58)
[2017-04-18] MEDS: PIPERACILLIN-TAZOBACTAM 3.375 GM in DEXTROSE/WATER 1 50ML.BAG IVPB SCH ×2 (09:23→20:58)
[2017-04-18 11:24] LABS: Glucose,Whole Blood 116 mg/dL (75-99)
[2017-04-18] MEDS ORDERED: FUROSEMIDE 10 MG/ML 4 ML VIAL IV STA (11:24)
--- NOTE | 2017-04-18 11:50 | PN ---
PROGRESS NOTE The patient is seen for followup for acute kidney injury. The patient has been extubated. He is currently awake, comfortable. He is not in any acute distress. Blood pressure is 92 to 104 mmHg systolic, heart rate of 87 to 69 per minute. Patient is afebrile. EXAMINATION OF THE HEART: S1, S2. EXAMINATION OF THE LUNGS: Decreased breath sounds at bases. Abdomen is soft, nontender. Examination of the lower extremity shows edema 2+ bilaterally upper and lower extremities. SURGICAL ORDERLY exam is grossly intact. Patient moving all 4 extremities. LAB: Labs show sodium 152, potassium 4.8, BUN 119, and serum creatinine is 3.45 mg/dL. Hemoglobin 8.3 g/dL. ASSESSMENT: 1. Acute kidney injury, acute tubular necrosis, nonoliguric, with improved urine output and stable creatinine. 2. Status post ventilator-dependent respiratory failure, currently extubated. 3. Hypernatremia, maintained on D5W at a 70 mL an hour. The patient was on bicarb drip, which is now discontinued. 4. Non gap metabolic acidosis secondary to renal failure. Patient also had anion gap metabolic acidosis from lactic acidosis, currently improved and status post discontinuation of IV bicarb. 5. Severe gastrointestinal bleed with hemoglobin as low as 4 g/dL on initial admission, status post multiple packed RBCs transfusion. 6. Disproportionately elevated BUN secondary to gastrointestinal bleed. PLAN: Switch to D5W. Repeat labs in a.m. Will give one dose of Lasix. MMLIDIAL / IJN: [id number] /
[2017-04-18] MEDS: INSULIN ASPART 100 UNIT/ML 1 ML 10 ML VIAL SQ SCH ×2 (11:59→18:14)
--- NOTE | 2017-04-18 12:10 | P.PN ---
Subjective Progress Note Date: 04/18/17 Principal diagnosis: Acute upper GI bleeding and acute hypoxic respiratory failure 89-year-old male patient, known history of congestion heart failure, chronic renal failure, chronic atrial fibrillation who has been taking aspirin and nonsteroidal anti-inflammatory medication outpatient basis. The patient came into the emergency department with episodes of hematemesis and the patient vomited bright red blood around 3-4 times prior to his arrival. In the emergency department he had 2-3 more episodes. The patient was taken apparently aspirin and Naprosyn. He is denying any previous history of alcoholism. He admitted to have some dark stools over the past few days. No chest pain. No syncope. He was feeling increasingly weak and tired. He has chronic lower extremity edema. No previous episodes of GI bleed. The patient was seen in the MRSA problem by gastroenterology. His initial hemoglobin was 6.1 and subsequently dropped down to 4.7. His platelet count was at 135 and dropped to 107. Correlation profile is within normal. The patient is prerenal with a BUN of 108 and creatinine of 2.8. Lipase level was apparently on 32. Lactic acid level was at 5.3 and is currently down to 2.8. Blood was ordered however there has been difficulty in obtaining the right match due to blood compatibility. Ultimately, 2 units of packed RBC were found to be available and the patient is currently getting his first unit. He got moved to the intensive care unit. He is also on IV fluids. There was [facility] that the patient may get overloaded with fluids. He was placed only on 75 mL an hour. I'm going to give him at least 2-3 L of bolus immediately in the ICU. He was tachycardic in the MRSA problem and the heart rate has slowed down. Most recent blood pressures 120/65. He has 2 peripheral IV lines. The patient was kept on IV Protonix. He is known to have also abdominal aortic aneurysm that has been repaired many years back. He has chronic atrial fibrillation as mentioned. On 04/15/2017, the patient is intensive care units. Note that overnight the patient continued to have episodes of upper GI bleed. NG tube was successfully inserted and the patient had a total of 200 mL of bloody drainage overnight. The patient was still throwing up blood episodically around the NG tube. GI was contacted on multiple occasions and ultimately this morning at around 7:30 AM preparations were done for EGD. By that time the patient was becoming more lethargic, short of breath, tachypneic and he was also developing significant hypoxemia with pulse ox dropped down to 84% while being on oxygen at 3 L/m nasal cannula. Note that overnight, the patient was given boluses of IV fluids and he received a total of 4 L of fluid bolus and he received a total of 5 units of packed RBC. With transfusion the hemoglobin came from as low as 4.7 up to 9.3. Nevertheless there was ongoing issues with bleeding and for that reason EGD was indicated. Based on his overall condition, I opted to intubate the patient to protect his airway. This was done and the intensive care unit without any major difficulties. Following that the patient was x-ray mechanical ventilator and currently the patient assist-control mode at the rate of 20, tidal volume 500 with FiO2 100% and PEEP of 5 and the blood gases still pending. I also inserted a triple lumen catheter in the left subclavian vein. Patient is currently on pressors and currently is on levo fed at the rate of 45 mics. Urine output is low. IV fluid is running at 75 and this will be increased up to 150 mL an hour. The patient is on Diprivan at 25 mics per KG per minute. Post intubation chest x-ray showed no evidence of any pulmonary edema. As such I suspect that the patient could've aspirated and the cracking is being Initiated is probably related to upper airway obstruction related to aspiration. In any rate, currently the patient is intubated and the blood gases are still pending for now. The patient is an 80 fibrillation rate is controlled for now. There is also drop in the plated count down to 84 and a platelet transfusion will also ordered. Renal function is improving and creatinine is down to 2.5. Actiq acid was at 2.8 and currently is down to 1. On today's blood work, the liver function tests within normal limits, the albumin is down to 1.9. Patient was reevaluated today on 04/16/2017, remains on mechanical ventilation, tidal volume of 500 assist control rate of 20 FiO2 of 35% and PEEP of 5. Patient remains on norepinephrine, about to 20 mics per minute, and we plan to titrate this down since the blood pressure seems to be stabilizing. His renal functioning seems to be getting worse, hence I have consulted nephrology to evaluate today. Patient remains on IV fluid at 150 mL per hour, good urine output is noted, however looking at his electrolytes, the patient seems to have a hyperchloremic non-anion gap metabolic acidosis. His bicarb is 14, BUN is 126 , and his creatinine is 3.20. ABG showed a pO2 of 171 pCO2 of 25 pH of 7.41. Hemoglobin today is holding at 10.0 WBC count is 22.4 platelets are 91,000. Chest x-ray shows bibasilar airspace disease and pleural effusion with mild vascular congestion. Suspect a component of right lower lobe aspiration pneumonia based on the chest x-ray. Reevaluated today on 04/17/2017, patient remains on mechanical ventilation, ventilator settings are basically the same as noted above. ABG showed a pO2 of 114 pCO2 of 28 pH of 7.43 BUN is 124 creatinine is 3.50. Patient is status post EGD 2 days ago, and he was found to have esophageal ulcer at the GE junction, status post injection and Endo Clip placement. Patient remains on a low dose of dopamine at 2.5 mcg/kg/m, his urine output is excellent, continues to have intermittent episodes of bradycardia, but no hypotension along with that. Hemoglobin today is 10.0. Bicarb is 18. Patient was reevaluated today on 04/18/2017, patient was extubated yesterday, tolerated the extubation well. Today he seems to be hemodynamically stable, in no form of respiratory distress, on nasal cannula. However his labs are abnormal showing significant hypernatremia, hyperchloremia, and significantly elevated BUN of 119 and creatinine 3.45. His CBC showed hemoglobin of 8.3 and WBC count of 17.1. Total units of blood transfusion since he was admitted on 7 units of packed RBCs. Down in the last few days. Platelets today are coming up to 76,000. Family is at bedside, patient was also seen by the timing inspector today, and his electrolytes will be addressed. Objective - Vital Signs Vital signs: Vital Signs Temp 96.6 F L 04/18/17 04:00 Pulse 115 H 04/18/17 07:00 Resp 15 04/18/17 07:00 BP 119/73 04/18/17 07:00 Pulse Ox 93 L 04/18/17 07:00 Intake & Output 04/17/17 04/18/17 04/18/17 18:59 06:59 18:59 Intake Total 1700.016 7876 Output Total 1130 1025 Balance 308.750 75 Weight 93.7 kg 94.5 kg Intake: IV 1300 1100 Dextrose 5% in Water 1, 1300 1100 000 ml @ 100 mls/hr IV . [id number] DERIAN with Sodium Bicarb (1 Meq/ml) 150 ml Rx#:[id number] Intake, IV Titration 138.750 Amount Norepinephrin 16 mg-0.9% 38.750 Ns Pmx 16 mg In 250 ml @ Titrate IV .Q0M DERIAN Rx#: [id number] Propofol 1,000 mg In 100 Empty Bag 1 bag @ Titrate IV .Q0M DERIAN Rx#: [id number] Output: Gastric Drainage 75 Urine 1055 1025 Other: Voiding Method Indwelling Catheter Indwelling Catheter - Exam General appearance: alert, in no apparent distress, on nasal cannula, Head exam: Atraumatic, normocephalic Eye exam: PERRLA, EOMI ENT exam: Dry mucous membranes, throat is clear, Neck exam: Neck supple no neck masses no thyromegaly, . Respiratory exam: Diminished breath sounds and crackles mostly at the right base otherwise unremarkable. Symmetrical chest expansion noted. Cardiovascular Exam: Irregular rhythm, no S3 gallop, 2/6 systolic murmur thought the precordium GI/Abdominal exam: Soft, nontender, no megaly, no rebound, positive bowel sounds. Rectal exam: Not performed Extremities exam: No clubbing edema or cyanosis. Good pulses bilaterally. Neurological exam: No gross focal neurologic deficit alert oriented 3 Psychiatric exam: Normal mood affect and normal mental status examination. Skin exam: Present: warm, dry, intact, pallor. No cyanosis. - Labs CBC & Chem 7: 04/18/17 04:16 04/18/17 04:16 Labs: Abnormal Lab Results - Last 24 Hours (Table) 04/17/17 04/17/17 04/17/17 Range/Units 11:45 13:07 14:05 WBC 14.0 H 17.0 H (3.8-10.6) k/uL RBC 2.26 L 2.64 L (4.30-5.90) m/uL Hgb 7.0 L* D 8.3 L (13.0-17.5) gm/dL Hct 20.0 L* 23.5 L (39.0-53.0) % RDW 17.9 H 17.8 H (11.5-15.5) % Plt Count 60 L 64 L (150-450) k/uL Neutrophils # (Manual) 12.00 H (1.3-7.7) k/uL Lymphocytes # (Manual) 0.98 L (1.0-4.8) k/uL Metamyelocytes # (Man) 0.28 H (0) k/uL Myelocytes # (Manual) 0.28 H (0) k/uL Nucleated RBCs 7 H (0-0) /100 WBC Sodium (137-145) mmol/L Chloride (98-107) mmol/L BUN (9-20) mg/dL Creatinine (0.66-1.25) mg/dL Glucose (74-99) mg/dL POC Glucose (mg/dL) 170 H (75-99) mg/dL Calcium (8.4-10.2) mg/dL Phosphorus (2.5-4.5) mg/dL 04/17/17 04/17/17 04/17/17 Range/Units 18:13 18:20 23:32 WBC 17.1 H 16.2 H (3.8-10.6) k/uL RBC 2.75 L 3.02 L (4.30-5.90) m/uL Hgb 8.4 L 9.1 L (13.0-17.5) gm/dL Hct 24.6 L 27.3 L (39.0-53.0) % RDW 17.9 H 18.0 H (11.5-15.5) % Plt Count 71 L 70 L (150-450) k/uL Neutrophils # (Manual) (1.3-7.7) k/uL Lymphocytes # (Manual) (1.0-4.8) k/uL Metamyelocytes # (Man) (0) k/uL Myelocytes # (Manual) (0) k/uL Nucleated RBCs (0-0) /100 WBC Sodium (137-145) mmol/L Chloride (98-107) mmol/L BUN (9-20) mg/dL Creatinine (0.66-1.25) mg/dL Glucose (74-99) mg/dL POC Glucose (mg/dL) 133 H (75-99) mg/dL Calcium (8.4-10.2) mg/dL Phosphorus (2.5-4.5) mg/dL 04/18/17 04/18/17 04/18/17 Range/Units 01:16 04:16 04:16 WBC 17.1 H (3.8-10.6) k/uL RBC 2.65 L (4.30-5.90) m/uL Hgb 8.3 L (13.0-17.5) gm/dL Hct 23.5 L (39.0-53.0) % RDW 18.2 H (11.5-15.5) % Plt Count 76 L (150-450) k/uL Neutrophils # (Manual) (1.3-7.7) k/uL Lymphocytes # (Manual) (1.0-4.8) k/uL Metamyelocytes # (Man) (0) k/uL Myelocytes # (Manual) (0) k/uL Nucleated RBCs (0-0) /100 WBC Sodium 152 H (137-145) mmol/L Chloride 121 H* (98-107) mmol/L BUN 119 H* (9-20) mg/dL Creatinine 3.45 H (0.66-1.25) mg/dL Glucose 114 H (74-99) mg/dL POC Glucose (mg/dL) 127 H (75-99) mg/dL Calcium 8.2 L (8.4-10.2) mg/dL Phosphorus 5.2 H (2.5-4.5) mg/dL 04/18/17 04/18/17 Range/Units 05:51 11:21 WBC (3.8-10.6) k/uL RBC (4.30-5.90) m/uL Hgb (13.0-17.5) gm/dL Hct (39.0-53.0) % RDW (11.5-15.5) % Plt Count (150-450) k/uL Neutrophils # (Manual) (1.3-7.7) k/uL Lymphocytes # (Manual) (1.0-4.8) k/uL Metamyelocytes # (Man) (0) k/uL Myelocytes # (Manual) (0) k/uL Nucleated RBCs (0-0) /100 WBC Sodium (137-145) mmol/L Chloride (98-107) mmol/L BUN (9-20) mg/dL Creatinine (0.66-1.25) mg/dL Glucose (74-99) mg/dL POC Glucose (mg/dL) 119 H 116 H (75-99) mg/dL Calcium (8.4-10.2) mg/dL Phosphorus (2.5-4.5) mg/dL Microbiology - Last 24 Hours (Table) 04/15/17 09:36 Gram Stain - Final Sputum Sputum Culture - Final Assessment and Plan Assessment: 1 acute upper GI bleeding, secondary to distal esophageal ulcer. Status post injection and Endo Clip placement. Remains on Protonix at 40 mg IV push every 12 hours. On 04/15/2017, the patient is still bleeding actively. NG tube is in place. He has been resuscitated with IV fluids and received a total of 4 L of IV fluid and 5 units of packed RBC. Awaiting EGD. Hemodynamically he is condition has gotten worse. He became progressively hypotensive and he had to be placed on pressors and currently is on 45 mics of norepinephrine infusion. He is being given IV fluids. His most recent hemoglobin is at 9.3. Currently is intubated on a mechanical ventilator. There is a obvious possibility that the patient have aspirated which put him in significant respiratory distress and acute hypoxic respiratory failure. As such the patient was intubated and placed on a mechanical ventilation. Post intubation chest x-ray shows no evidence of pneumonia. Blood gases shows adequate oxygenation. On 04/16/2017, patient does not have any active bleeding at present, patient seems to be doing well overall, remains on norepinephrine at 20 g which I plan to taper and hopefully discontinue today. Renal functioning seems to be getting worse hence a nephrology consult was initiated. In the meantime continue IV fluids, patient does have non-anion gap hyperchloremic metabolic acidosis. On 04/17/2017, patient had one episode of bleeding last night, not clear whether this is old blood or new active bleeding. Remains on mechanical ventilation, patient be given a trial of weaning/spontaneous breathing trial. Off propofol the patient was noted to be extremely appropriate. And he seems to be hemodynamically stable. On 04/18/2017, patient tolerated extubation well over the last 24 hours, relatively asymptomatic, has significant abnormal labs, these will be addressed by changing his IV fluids, and patient will be monitored in the ICU for the next 24 hours. 2 profound anemia secondary to GI related blood loss. Received a total of 7 units of packed RBCs since admission. 3 acute kidney injury, secondary to intravascular volume depletion. The patient 's creatinine is improving and the creatinine is now 3.20. 4 acute hypoxic respiratory failure currently intubated on a mechanical ventilator, possible aspiration. Right lower lobe pneumonia suspected, patient is on Zosyn. 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 fib rhythm 11 thrombocytopenia 12 leukocytosis Recommendation: Present supportive care measures, address his abnormal electrolytes including hypernatremia and hyperchloremia, continue to monitor the renal status closely. Patient is being followed by nephrology. Consider transfer out of the ICU in the next 24 hours if he remains stable. Discussed his condition with his family including his and his son at bedside. Time with Patient: Less than 30
[2017-04-18 12:27] LABS: Anisocytosis Slight; HCT 26.3 % (39.0-53.0); HGB 8.9 gm/dL (13.0-17.5); MCH 30.8 pg (25.0-35.0); MCHC 33.8 g/dL (31.0-37.0); MCV 91.2 fL (80.0-100.0); Mean Platelet Volume 11.3; RBC 2.88 m/uL (4.30-5.90); RDW 18.8 % (11.5-15.5); WBC 16.9 k/uL (3.8-10.6)
[2017-04-18 12:30] LABS: Platelet Count 76 k/uL (150-450)
[2017-04-18] MEDS: DOPamine DRIP 800 MG in DEXTROSE/WATER 1 500ML.BAG IV SCH (12:47)
[2017-04-18] MEDS: CHLORHEXIDINE GLUCONATE 15 ML CUP MUCOUS MEM SCH (12:55)
--- NOTE | 2017-04-18 13:34 | P.CRDCN ---
History of Present Illness History of present illness: 89-year-old male patient admitted with GI bleeding Found to have a hemoglobin of 6.1 for the drop 4.7 is hypertensive and was on pressors Patient unable to give a history Past history of hypertension myocardial infarction atrial fibrillation chronic kidney disease Baseline creatinine 1.4 peripheral vascular disease dyslipidemia and dementia past surgical history femoral endarterectomy, tonsillectomy, repair of abdominal aortic and is in Social history past history of smoking Medication list was reviewed and includes atorvastatin Patient is now been extubated. Afebrile 97.2F, pulse rate in the 50s, blood pressure 92 52 mmHg Breath sounds are reduced bilaterally Heart sounds are soft irregular Impression Hypotension secondary to acute blood loss secondary GI bleeding on pressors History of atrial fibrillation History of CAD [place] and peripheral vascular disease Suggest Continue supportive care and management of GI bleeding and once his blood pressure normalizes he should be restarted on atorvastatin and amlodipine for blood pressure control and dyslipidemia management. Hold off on aspirin Please call as needed Past Medical History Past Medical History: Atrial Fibrillation, Hypertension, Myocardial Infarction ( [place]) Additional Past Medical History / Comment(s): Chronic renal failure, chronic atrial fibrillation, hypertension, coronary artery disease and previous myocardial infarction, abdominal aortic and was in the has not appearance, atherosclerosis with peripheral vascular disease, COPD, dementia, BPH, hyperlipidemia, prostate cancer Last Myocardial Infarction Date:: 1996 History of Any Multi-Drug Resistant Organisms: None Reported Past Surgical History: Heart Catheterization, Tonsillectomy Additional Past Surgical History / Comment(s): Repair of abdominal aortic aneurysm, previous history of right femoral endarterectomy, Past Psychological History: No Psychological Hx Reported Smoking Status: Former smoker Past Alcohol Use History: Occasional Past Drug Use History: None Reported Medications and Allergies Home Medications Medication Instructions Recorded Confirmed Type Tamsulosin [Flomax] 0.4 mg PO DAILY 06/11/13 04/14/17 History Aspirin EC [Ecotrin Low Dose] 81 mg PO DAILY 04/14/17 04/14/17 History Atorvastatin [Lipitor] 80 mg PO DAILY 04/14/17 04/14/17 History Furosemide [Lasix] 40 mg PO DAILY 04/14/17 04/14/17 History Naproxen 500 mg PO BID PRN 04/14/17 04/14/17 History amLODIPine [Norvasc] 5 mg PO DAILY 04/14/17 04/14/17 History Allergies Allergy/AdvReac Type Severity Reaction Status Date / Time No Known Allergies Allergy Verified 04/14/17 10:35 Physical Exam Vitals: Vital Signs Temp Pulse Resp BP Pulse Ox 04/18/17 12:00 97.2 F L 50 L 16 92/52 96 04/18/17 11:00 73 18 105/62 94 L 04/18/17 10:00 76 18 118/45 95 04/18/17 09:00 59 L 24 113/56 96 04/18/17 08:00 97.5 F L 84 27 H 119/73 96 04/18/17 07:00 115 H 15 119/73 93 L 04/18/17 06:00 87 17 92/74 86 L 04/18/17 05:00 69 29 H 104/78 94 L 04/18/17 04:00 96.6 F L 67 20 96/58 94 L 04/18/17 03:00 79 15 104/41 93 L 04/18/17 02:00 87 16 96/51 93 L 04/18/17 01:00 61 21 116/54 90 L 04/18/17 00:00 96.7 F L 62 31 H 64/45 89 L 04/17/17 23:22 63 15 91/49 93 L 04/17/17 23:00 87 17 112/66 93 L 04/17/17 22:00 84 18 106/76 93 L 04/17/17 21:00 53 L 15 104/56 96 04/17/17 20:00 96.7 F L 72 15 103/64 97 04/17/17 19:00 68 15 102/60 95 04/17/17 18:00 86 22 111/70 95 04/17/17 17:00 77 13 84/56 100 04/17/17 16:00 97.6 F 73 15 104/66 100 04/17/17 15:00 58 L 17 98/45 100 04/17/17 14:00 87 16 97/61 99 Intake and Output 04/17/17 04/18/17 04/18/17 22:59 06:59 14:59 Intake Total 807.844 800 458.58 Output Total 675 735 575 Balance 132.844 65 -116.42 Intake: IV 800 800 Dextrose 5% in Water 1, 800 800 000 ml @ 100 mls/hr IV . [id number] DERIAN with Sodium Bicarb (1 Meq/ml) 150 ml Rx#:[id number] Intake, IV Titration 7.844 458.58 Amount DOPamine DRIP 800 mg In 38.58 Dextrose/Water 1 500ml. bag @ 2 MCG/KG/MIN 6.43 mls/hr IV .Q24H DERIAN Rx#: [id number] Dextrose 5% in Water 1, 420 000 ml @ 70 mls/hr IV . [id number] DERIAN Rx#:[id number] Norepinephrin 16 mg-0.9% 7.844 Ns Pmx 16 mg In 250 ml @ Titrate IV .Q0M DERIAN Rx#: [id number] Output: Urine 675 735 575 Other: Voiding Method Indwelling Catheter Indwelling Catheter Indwelling Catheter Weight 94.5 kg Results 04/18/17 12:10 04/18/17 04:16 CBC 04/17/17 04/17/17 04/17/17 Range/Units 11:45 14:05 18:20 WBC 14.0 H 17.0 H 17.1 H (3.8-10.6) k/uL RBC 2.26 L 2.64 L 2.75 L (4.30-5.90) m/uL Hgb 7.0 L* D 8.3 L 8.4 L (13.0-17.5) gm/dL Hct 20.0 L* 23.5 L 24.6 L (39.0-53.0) % Plt Count 60 L 64 L 71 L (150-450) k/uL 04/17/17 04/18/17 04/18/17 Range/Units 23:32 04:16 12:10 WBC 16.2 H 17.1 H 16.9 H (3.8-10.6) k/uL RBC 3.02 L 2.65 L 2.88 L (4.30-5.90) m/uL Hgb 9.1 L 8.3 L 8.9 L (13.0-17.5) gm/dL Hct 27.3 L 23.5 L 26.3 L (39.0-53.0) % Plt Count 70 L 76 L 76 L (150-450) k/uL Comprehensive Metabolic Panel 04/18/17 Range/Units 04:16 Sodium 152 H (137-145) mmol/L Potassium 4.8 (3.5-5.1) mmol/L Chloride 121 H* (98-107) mmol/L Carbon Dioxide 23 (22-30) mmol/L BUN 119 H* (9-20) mg/dL Creatinine 3.45 H (0.66-1.25) mg/dL Glucose 114 H (74-99) mg/dL Calcium 8.2 L (8.4-10.2) mg/dL Current Medications Generic Name Dose Route Start Last Admin Trade Name Freq PRN Reason Stop Dose Admin Furosemide 40 mg 04/15/17 01:26 04/15/17 06:41 Lasix IV 40 mg ONCE PRN Administration difficulty breathing Norepinephrine Bitartrate 16 mg in 250 mls @ 0 mls/hr 04/15/17 09:30 18:04 Levophed-0.9% Nacl 16 Mg/250ml Pmx IV 1 mcg/min .Q0M DERIAN 0.938 mls/hr Protocol Titration Titrate Piperacillin/Tazobactam/ 50 mls @ 12.5 mls/hr 04/15/17 09:45 04/18/17 09:23 Dextrose 3.375 gm/ IV Solution IVPB 12.5 mls/hr Q12HR DERIAN Administration Dopamine HCl/Dextrose 800 mg/ 500 mls @ 6.43 mls/hr 04/17/17 00:15 04/18/17 12:47 IV Solution IV Not Given .Q24H DERIAN 2 MCG/KG/MIN Dextrose/Water 1,000 mls @ 70 mls/hr 04/18/17 06:15 04/18/17 06:39 Dextrose 5%-Water Iv Soln IV 70 mls/hr .[id number] DERIAN Administration Insulin Aspart 0 unit 04/18/17 11:30 04/18/17 11:59 Novolog SQ Not Given Q6H DERIAN Protocol Naloxone HCl 0.2 mg 04/14/17 10:28 Narcan IV Q2M PRN Opioid Reversal Ondansetron HCl 4 mg 04/14/17 21:04 Zofran IVP Q6HR PRN Nausea And Vomiting Pantoprazole Sodium 40 mg 04/14/17 21:00 04/18/17 09:23 Protonix IVP 40 mg BID DERIAN Administration Intake and Output 04/17/17 04/18/17 04/18/17 22:59 06:59 14:59 Intake Total 807.844 800 458.58 Output Total 675 735 575 Balance 132.844 65 -116.42 Intake: IV 800 800 Dextrose 5% in Water 1, 800 800 000 ml @ 100 mls/hr IV . [id number] DERIAN with Sodium Bicarb (1 Meq/ml) 150 ml Rx#:[id number] Intake, IV Titration 7.844 458.58 Amount DOPamine DRIP 800 mg In 38.58 Dextrose/Water 1 500ml. bag @ 2 MCG/KG/MIN 6.43 mls/hr IV .Q24H DERIAN Rx#: [id number] Dextrose 5% in Water 1, 420 000 ml @ 70 mls/hr IV . [id number] DERIAN Rx#:[id number] Norepinephrin 16 mg-0.9% 7.844 Ns Pmx 16 mg In 250 ml @ Titrate IV .Q0M DERIAN Rx#: [id number] Output: Urine 675 735 575 Other: Voiding Method Indwelling Catheter Indwelling Catheter Indwelling Catheter Weight 94.5 kg 04/18/17 12:10 04/18/17 04:16
[2017-04-18 17:10] LABS: Anisocytosis Slight; HCT 27.8 % (39.0-53.0); MCH 30.1 pg (25.0-35.0); MCHC 32.2 g/dL (31.0-37.0); MCV 93.3 fL (80.0-100.0); Mean Platelet Volume 11.9; Platelet Count 78 k/uL (150-450); RBC 2.98 m/uL (4.30-5.90); RDW 18.2 % (11.5-15.5); WBC 13.9 k/uL (3.8-10.6)
[2017-04-18 17:26] LABS: Calcium 8.5 mg/dL (8.4-10.2); Potassium 3.3 mmol/L (3.5-5.1)
[2017-04-18] MEDS ORDERED: DEXTROSE 5% IN WATER 1,000 ML IV ONE (18:02)
[2017-04-18] MEDS ORDERED: Magnesium Replacement Protocol 1 EACH MISC MISCELLANE PRN (18:02)
--- NOTE | 2017-04-18 18:05 | PN ---
PROGRESS NOTE CHIEF COMPLAINT: Hypovolemic shock following upper gastrointestinal hemorrhage from GE junction ulcer. HISTORY OF PRESENT ILLNESS: This gentleman is extubated and doing well. Mentally he seems to be quite intact. Blood pressure is still slightly low and he is still making urine, but creatinine is not dropping very quickly. PHYSICAL EXAMINATION: He remains pale, but he is awake and quite alert. Breath sounds are heard bilaterally. Cardiac exam is normal. His pulse rate has picked up. IMPRESSION: 1. Upper gastrointestinal hemorrhage from gastroesophageal junction ulcer. 2. Hypovolemic shock. 3. Blood loss anemia. 4. Acute on chronic renal failure. PLAN: Continue to follow with supportive care. MMODL / IJN: [id number] /
[2017-04-18 18:08] LABS: Magnesium 2.1 mg/dL (1.6-2.3); Phosphorus 4.9 mg/dL (2.5-4.5)
[2017-04-18 18:09] LABS: Glucose,Whole Blood 113 mg/dL (75-99)
[2017-04-18] MEDS: POTASSIUM CHLORIDE 20 MEQ in SODIUM CHLORIDE 0.9% 100 ML IVPB SCH ×3 (18:25→23:56)
[2017-04-18 20:35] LABS: Hemoglobin A1C 5.5 % (4.0-6.0)
[2017-04-19] MEDS: INSULIN ASPART 100 UNIT/ML 1 ML 10 ML VIAL SQ SCH ×5 (00:02→23:52)
[2017-04-19 00:03] LABS: Glucose,Whole Blood 123 mg/dL (75-99)
[2017-04-19] MEDS: POTASSIUM CHLORIDE 20 MEQ in SODIUM CHLORIDE 0.9% 100 ML IVPB SCH (02:01)
[2017-04-19 04:59] LABS: Anisocytosis Slight; HCT 26.6 % (39.0-53.0); HGB 9.1 gm/dL (13.0-17.5); MCH 31.3 pg (25.0-35.0); MCHC 34.3 g/dL (31.0-37.0); MCV 91.1 fL (80.0-100.0); Poikilocytosis Slight; RBC 2.92 m/uL (4.30-5.90); RDW 18.6 % (11.5-15.5); WBC 12.4 k/uL (3.8-10.6)
[2017-04-19 05:03] LABS: Platelet Count 82 k/uL (150-450)
[2017-04-19 05:09] LABS: Calcium 8.6 mg/dL (8.4-10.2); Phosphorus 4.7 mg/dL (2.5-4.5)
[2017-04-19 06:03] LABS: Glucose,Whole Blood 118 mg/dL (75-99)
[2017-04-19] MEDS: PANTOPRAZOLE 40 MG/10 ML VIAL IVP SCH ×2 (08:20→20:39)
[2017-04-19] MEDS: PIPERACILLIN-TAZOBACTAM 3.375 GM in DEXTROSE/WATER 1 50ML.BAG IVPB SCH ×2 (08:21→20:44)
[2017-04-19 12:07] LABS: Anisocytosis Slight; HCT 24.3 % (39.0-53.0); MCH 30.1 pg (25.0-35.0); MCHC 32.9 g/dL (31.0-37.0); MCV 91.6 fL (80.0-100.0); Mean Platelet Volume 12.3; RBC 2.65 m/uL (4.30-5.90); RDW 18.6 % (11.5-15.5); WBC 11.6 k/uL (3.8-10.6)
[2017-04-19 12:13] LABS: Platelet Count 72 k/uL (150-450)
[2017-04-19 12:14] LABS: Glucose,Whole Blood 124 mg/dL (75-99)
--- NOTE | 2017-04-19 12:49 | P.PN ---
Subjective Progress Note Date: 04/19/17 Principal diagnosis: Acute upper GI bleeding and acute hypoxic respiratory failure 89-year-old male patient, known history of congestion heart failure, chronic renal failure, chronic atrial fibrillation who has been taking aspirin and nonsteroidal anti-inflammatory medication outpatient basis. The patient came into the emergency department with episodes of hematemesis and the patient vomited bright red blood around 3-4 times prior to his arrival. In the emergency department he had 2-3 more episodes. The patient was taken apparently aspirin and Naprosyn. He is denying any previous history of alcoholism. He admitted to have some dark stools over the past few days. No chest pain. No syncope. He was feeling increasingly weak and tired. He has chronic lower extremity edema. No previous episodes of GI bleed. The patient was seen in the MRSA problem by gastroenterology. His initial hemoglobin was 6.1 and subsequently dropped down to 4.7. His platelet count was at 135 and dropped to 107. Correlation profile is within normal. The patient is prerenal with a BUN of 108 and creatinine of 2.8. Lipase level was apparently on 32. Lactic acid level was at 5.3 and is currently down to 2.8. Blood was ordered however there has been difficulty in obtaining the right match due to blood compatibility. Ultimately, 2 units of packed RBC were found to be available and the patient is currently getting his first unit. He got moved to the intensive care unit. He is also on IV fluids. There was concern the [facility] that the patient may get overloaded with fluids. He was placed only on 75 mL an hour. I'm going to give him at least 2-3 L of bolus immediately in the ICU. He was tachycardic in the MRSA problem and the heart rate has slowed down. Most recent blood pressures 120/65. He has 2 peripheral IV lines. The patient was kept on IV Protonix. He is known to have also abdominal aortic aneurysm that has been repaired many years back. He has chronic atrial fibrillation as mentioned. On 04/15/2017, the patient is intensive care units. Note that overnight the patient continued to have episodes of upper GI bleed. NG tube was successfully inserted and the patient had a total of 200 mL of bloody drainage overnight. The patient was still throwing up blood episodically around the NG tube. GI was contacted on multiple occasions and ultimately this morning at around 7:30 AM preparations were done for EGD. By that time the patient was becoming more lethargic, short of breath, tachypneic and he was also developing significant hypoxemia with pulse ox dropped down to 84% while being on oxygen at 3 L/m nasal cannula. Note that overnight, the patient was given boluses of IV fluids and he received a total of 4 L of fluid bolus and he received a total of 5 units of packed RBC. With transfusion the hemoglobin came from as low as 4.7 up to 9.3. Nevertheless there was ongoing issues with bleeding and for that reason EGD was indicated. Based on his overall condition, I opted to intubate the patient to protect his airway. This was done and the intensive care unit without any major difficulties. Following that the patient was x-ray mechanical ventilator and currently the patient assist-control mode at the rate of 20, tidal volume 500 with FiO2 100% and PEEP of 5 and the blood gases still pending. I also inserted a triple lumen catheter in the left subclavian vein. Patient is currently on pressors and currently is on levo fed at the rate of 45 mics. Urine output is low. IV fluid is running at 75 and this will be increased up to 150 mL an hour. The patient is on Diprivan at 25 mics per KG per minute. Post intubation chest x-ray showed no evidence of any pulmonary edema. As such I suspect that the patient could've aspirated and the cracking is being Initiated is probably related to upper airway obstruction related to aspiration. In any rate, currently the patient is intubated and the blood gases are still pending for now. The patient is an 80 fibrillation rate is controlled for now. There is also drop in the plated count down to 84 and a platelet transfusion will also ordered. Renal function is improving and creatinine is down to 2.5. Actiq acid was at 2.8 and currently is down to 1. On today's blood work, the liver function tests within normal limits, the albumin is down to 1.9. Patient was reevaluated today on 04/16/2017, remains on mechanical ventilation, tidal volume of 500 assist control rate of 20 FiO2 of 35% and PEEP of 5. Patient remains on norepinephrine, about to 20 mics per minute, and we plan to titrate this down since the blood pressure seems to be stabilizing. His renal functioning seems to be getting worse, hence I have consulted nephrology to evaluate today. Patient remains on IV fluid at 150 mL per hour, good urine output is noted, however looking at his electrolytes, the patient seems to have a hyperchloremic non-anion gap metabolic acidosis. His bicarb is 14, BUN is 126 , and his creatinine is 3.20. ABG showed a pO2 of 171 pCO2 of 25 pH of 7.41. Hemoglobin today is holding at 10.0 WBC count is 22.4 platelets are 91,000. Chest x-ray shows bibasilar airspace disease and pleural effusion with mild vascular congestion. Suspect a component of right lower lobe aspiration pneumonia based on the chest x-ray. Reevaluated today on 04/17/2017, patient remains on mechanical ventilation, ventilator settings are basically the same as noted above. ABG showed a pO2 of 114 pCO2 of 28 pH of 7.43 BUN is 124 creatinine is 3.50. Patient is status post EGD 2 days ago, and he was found to have esophageal ulcer at the GE junction, status post injection and Endo Clip placement. Patient remains on a low dose of dopamine at 2.5 mcg/kg/m, his urine output is excellent, continues to have intermittent episodes of bradycardia, but no hypotension along with that. Hemoglobin today is 10.0. Bicarb is 18. Patient was reevaluated today on 04/18/2017, patient was extubated yesterday, tolerated the extubation well. Today he seems to be hemodynamically stable, in no form of respiratory distress, on nasal cannula. However his labs are abnormal showing significant hypernatremia, hyperchloremia, and significantly elevated BUN of 119 and creatinine 3.45. His CBC showed hemoglobin of 8.3 and WBC count of 17.1. Total units of blood transfusion since he was admitted on 7 units of packed RBCs. Down in the last few days. Platelets today are coming up to 76,000. Family is at bedside, patient was also seen by the union contract representative today, and his electrolytes will be addressed. Patient was reevaluated today on 04/19/2017, remains in the ICU, he was off norepinephrine earlier today, and I have discontinued his dopamine also. And I' m at least stable, no active bleeding was noted, labs were all reviewed, and the patient seems to be doing relatively well considering. Patient is awake, alert, relatively asymptomatic, would like to have his diet advanced. Objective - Vital Signs Vital signs: Vital Signs Temp 98.3 F 04/19/17 08:00 Pulse 58 L 04/19/17 11:00 Resp 31 H 04/19/17 11:00 BP 104/63 04/19/17 11:00 Pulse Ox 96 04/19/17 11:00 Intake & Output 04/18/17 04/19/17 04/19/17 18:59 06:59 18:59 Intake Total 972.16 1306.43 75 Output Total 2225 1340 225 Balance -1252.84 -33.57 -150 Weight 94.6 kg Intake: IV 75 Dextrose 5% in Water 1, 75 000 ml @ 75 mls/hr IV . [id number] [facility] Rx#:[id number] Intake, IV Titration 972.16 1306.43 Amount DOPamine DRIP 800 mg In 77.16 6.43 Dextrose/Water 1 500ml. bag @ 2 MCG/KG/MIN 6.43 mls/hr IV .Q24H [facility] Rx#: [id number] Dextrose 5% in Water 1, 845 225 000 ml @ 70 mls/hr IV . [id number] [facility] Rx#:[id number] Dextrose 5% in Water 1, 675 000 ml @ 75 mls/hr IV . [id number] [facility] Rx#:[id number] Potassium Chloride 20 meq 50 400 In Sodium Chloride 0.9% 100 ml @ 50 mls/hr IVPB Q2H [facility] Rx#:[id number] Output: Urine 2225 1340 225 Other: Voiding Method Indwelling Catheter Indwelling Catheter # Bowel Movements 1 - Exam General appearance: alert, in no apparent distress, on nasal cannula, Head exam: Atraumatic, normocephalic Eye exam: PERRLA, EOMI ENT exam: Dry mucous membranes, throat is clear, Neck exam: Neck supple no neck masses no thyromegaly, . Respiratory exam: Diminished breath sounds and crackles mostly at the right base otherwise unremarkable. Symmetrical chest expansion noted. Cardiovascular Exam: Irregular rhythm, no S3 gallop, 2/6 systolic murmur thought the precordium GI/Abdominal exam: Soft, nontender, no megaly, no rebound, positive bowel sounds. Rectal exam: Not performed Extremities exam: No clubbing edema or cyanosis. Good pulses bilaterally. Neurological exam: No gross focal neurologic deficit alert oriented 3 Psychiatric exam: Normal mood affect and normal mental status examination. Skin exam: Present: warm, dry, intact, pallor. No cyanosis. - Labs CBC & Chem 7: 04/19/17 11:50 04/19/17 04:33 Labs: Abnormal Lab Results - Last 24 Hours (Table) 04/18/17 04/18/17 04/18/17 Range/Units 15:00 15:00 15:00 WBC 13.9 H (3.8-10.6) k/uL RBC 2.98 L (4.30-5.90) m/uL Hgb 9.0 L (13.0-17.5) gm/dL Hct 27.8 L (39.0-53.0) % RDW 18.2 H (11.5-15.5) % Plt Count 78 L (150-450) k/uL Sodium 152 H (137-145) mmol/L Potassium 3.3 L (3.5-5.1) mmol/L Chloride 117 H (98-107) mmol/L BUN 109 H* (9-20) mg/dL Creatinine 3.40 H (0.66-1.25) mg/dL Glucose 121 H (74-99) mg/dL POC Glucose (mg/dL) (75-99) mg/dL Phosphorus 4.9 H (2.5-4.5) mg/dL 04/18/17 04/19/17 04/19/17 Range/Units 18:07 00:01 04:33 WBC (3.8-10.6) k/uL RBC (4.30-5.90) m/uL Hgb (13.0-17.5) gm/dL Hct (39.0-53.0) % RDW (11.5-15.5) % Plt Count (150-450) k/uL Sodium 153 H (137-145) mmol/L Potassium (3.5-5.1) mmol/L Chloride 116 H (98-107) mmol/L BUN 101 H* (9-20) mg/dL Creatinine 3.50 H (0.66-1.25) mg/dL Glucose 119 H (74-99) mg/dL POC Glucose (mg/dL) 113 H 123 H (75-99) mg/dL Phosphorus 4.7 H (2.5-4.5) mg/dL 04/19/17 04/19/17 04/19/17 Range/Units 04:33 06:01 11:50 WBC 12.4 H 11.6 H (3.8-10.6) k/uL RBC 2.92 L 2.65 L (4.30-5.90) m/uL Hgb 9.1 L 8.0 L (13.0-17.5) gm/dL Hct 26.6 L 24.3 L (39.0-53.0) % RDW 18.6 H 18.6 H (11.5-15.5) % Plt Count 82 L 72 L (150-450) k/uL Sodium (137-145) mmol/L Potassium (3.5-5.1) mmol/L Chloride (98-107) mmol/L BUN (9-20) mg/dL Creatinine (0.66-1.25) mg/dL Glucose (74-99) mg/dL POC Glucose (mg/dL) 118 H (75-99) mg/dL Phosphorus (2.5-4.5) mg/dL 04/19/17 Range/Units 12:12 WBC (3.8-10.6) k/uL RBC (4.30-5.90) m/uL Hgb (13.0-17.5) gm/dL Hct (39.0-53.0) % RDW (11.5-15.5) % Plt Count (150-450) k/uL Sodium (137-145) mmol/L Potassium (3.5-5.1) mmol/L Chloride (98-107) mmol/L BUN (9-20) mg/dL Creatinine (0.66-1.25) mg/dL Glucose (74-99) mg/dL POC Glucose (mg/dL) 124 H (75-99) mg/dL Phosphorus (2.5-4.5) mg/dL Assessment and Plan Assessment: 1 acute upper GI bleeding, secondary to distal esophageal ulcer. Status post injection and Endo Clip placement. Remains on Protonix at 40 mg IV push every 12 hours. On 04/15/2017, the patient is still bleeding actively. NG tube is in place. He has been resuscitated with IV fluids and received a total of 4 L of IV fluid and 5 units of packed RBC. Awaiting EGD. Hemodynamically he is condition has gotten worse. He became progressively hypotensive and he had to be placed on pressors and currently is on 45 mics of norepinephrine infusion. He is being given IV fluids. His most recent hemoglobin is at 9.3. Currently is intubated on a mechanical ventilator. There is a obvious possibility that the patient have aspirated which put him in significant respiratory distress and acute hypoxic respiratory failure. As such the patient was intubated and placed on a mechanical ventilation. Post intubation chest x-ray shows no evidence of pneumonia. Blood gases shows adequate oxygenation. On 04/16/2017, patient does not have any active bleeding at present, patient seems to be doing well overall, remains on norepinephrine at 20 g which I plan to taper and hopefully discontinue today. Renal functioning seems to be getting worse hence a nephrology consult was initiated. In the meantime continue IV fluids, patient does have non-anion gap hyperchloremic metabolic acidosis. On 04/17/2017, patient had one episode of bleeding last night, not clear whether this is old blood or new active bleeding. Remains on mechanical ventilation, patient be given a trial of weaning/spontaneous breathing trial. Off propofol the patient was noted to be extremely appropriate. And he seems to be hemodynamically stable. On 04/18/2017, patient tolerated extubation well over the last 24 hours, relatively asymptomatic, has significant abnormal labs, these will be addressed by changing his IV fluids, and patient will be monitored in the ICU for the next 24 hours. On 04/19/2017, patient will remain on IV fluids to correct his slightly elevated sodium, his diet will be advanced, dopamine was discontinued, norepinephrine was discontinued, we will likely transfer to a monitor bed on selective today. 2 profound anemia secondary to GI related blood loss. Received a total of 7 units of packed RBCs since admission. 3 acute kidney injury, secondary to intravascular volume depletion. The patient 's creatinine is improving and the creatinine is now 3.20. 4 acute hypoxic respiratory failure currently intubated on a mechanical ventilator, possible aspiration. Right lower lobe pneumonia suspected, patient is on Zosyn. 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 fib rhythm 11 thrombocytopenia 12 leukocytosis Recommendation: Present supportive care measures, discussed his condition with the union contract representative regarding his electrolytes and acid-base imbalance, plan to increase his IV fluid using to D5W, his urine output seems to be excellent. We will likely transfer out of the ICU to a monitor bed today. Dopamine and norepinephrine were discontinued Time with Patient: Less than 30
--- NOTE | 2017-04-19 13:49 | CDI ---
Last Revision, January 2017 Documentation Clarification Form Date: 04/19/2014 From: Faviola Arguelles RN, CCDS Admit Date: 04/14/2017 10:28:00 AM Patient Name: Colten Randolph Visit Number: [id number] Discharge Date: ATTENTION: The Clinical Documentation Specialists (CDI) and [facility] Coding Staff appreciate your assistance in clarifying documentation. Please respond to the clarification below the line at the bottom and electronically sign. The CDI & [facility] Coding staff will review the response and follow-up if needed. Please note: Queries are made part of the Legal Health Record. If you have any questions, please contact the author of this message via ITS. Dr. Leah Jay History/Risk Factors: Hypertension, [place], Atrial fibrillation, CKD, Peripheral vascular disease, COPD, Dementia Clinical Indicators: Admit with weakness, increased edema, found to have a hemoglobin of 6.1 which further dropped to 4.7g/dL. He is hypotensive and maintained on Levophed. Urine output is maintained about 35-50 mL an hour. Admission BUN 108, CR 2.87, GFR 19 04/19/17 Current BUN 101, CR 3.50 GFR:15 Patients Baseline: CR 1.4 (per ) Treatment: Patients medications include: IVF bicarb IV hydration Avoid nephrotoxic In order to capture the severity of condition, please clarify if the condition signifies: CKD Stage 1 (GFR > 90) CKD Stage 2 (GFR 60-89) CKD Stage 3 (GFR 30-59) CKD Stage 4 (GFR 15-29) CKD Stage 5 (GFR <15) ESRD Other, please specify Unable to determine Please continue to document in your progress notes and discharge summary in order to capture severity of illness and risk of mortality. Include clinical findings that support your diagnosis. MTDD
--- NOTE | 2017-04-19 14:28 | P.PN ---
Subjective Progress Note Date: 04/19/17 Principal diagnosis: GI bleed Status post EGD for evaluation of upper GI bleed with findings of active bleeding from distal esophageal ulcer at the GE junction status post injection and Endo Clip placement. Nursing reports small smear dark bowel movement this morning. Tolerating dysphagia 3 diet. Denies abdominal pain. HGB 8.0. Objective - Vital Signs Vital signs: Vital Signs Temp 98.3 F 04/19/17 08:00 Pulse 58 L 04/19/17 11:00 Resp 31 H 04/19/17 11:00 BP 104/63 04/19/17 11:00 Pulse Ox 96 04/19/17 11:00 Intake & Output 04/18/17 04/19/17 04/19/17 18:59 06:59 18:59 Intake Total 972.16 1306.43 75 Output Total 2225 1340 225 Balance -1252.84 -33.57 -150 Weight 94.6 kg Intake: IV 75 Dextrose 5% in Water 1, 75 000 ml @ 75 mls/hr IV . [id number] [facility] Rx#:[id number] Intake, IV Titration 972.16 1306.43 Amount DOPamine DRIP 800 mg In 77.16 6.43 Dextrose/Water 1 500ml. bag @ 2 MCG/KG/MIN 6.43 mls/hr IV .Q24H [facility] Rx#: [id number] Dextrose 5% in Water 1, 845 225 000 ml @ 70 mls/hr IV . [id number] [facility] Rx#:[id number] Dextrose 5% in Water 1, 675 000 ml @ 75 mls/hr IV . [id number] [facility] Rx#:[id number] Potassium Chloride 20 meq 50 400 In Sodium Chloride 0.9% 100 ml @ 50 mls/hr IVPB Q2H [facility] Rx#:[id number] Output: Urine 2225 1340 225 Other: Voiding Method Indwelling Catheter Indwelling Catheter Indwelling Catheter # Bowel Movements 1 - Exam General appearance: The patient is awake alert oriented HET: Head is normocephalic and atraumatic. Pupils are equal and reactive. Oropharynx is clear without lesions. Neck: Supple without lymphadenopathy. Trachea midline. Heart: S1 S2. Lungs: No crackles or wheezes are heard. Diminished bases bilaterally. Abdomen: Soft, nontender, nondistended with bowel sounds. No peritoneal signs. No palpable organomegaly or masses. Extremities: Normal skin color and turgor. No cyanosis, rash, ulceration, clubbing, or edema. Radial and pedal pulses are 2/4 bilaterally. Michele with clear yellow urine. Neurological: no deficits. - Labs CBC & Chem 7: 04/19/17 11:50 04/19/17 04:33 Labs: Abnormal Lab Results - Last 24 Hours (Table) 04/18/17 04/18/17 04/18/17 Range/Units 15:00 15:00 15:00 WBC 13.9 H (3.8-10.6) k/uL RBC 2.98 L (4.30-5.90) m/uL Hgb 9.0 L (13.0-17.5) gm/dL Hct 27.8 L (39.0-53.0) % RDW 18.2 H (11.5-15.5) % Plt Count 78 L (150-450) k/uL Sodium 152 H (137-145) mmol/L Potassium 3.3 L (3.5-5.1) mmol/L Chloride 117 H (98-107) mmol/L BUN 109 H* (9-20) mg/dL Creatinine 3.40 H (0.66-1.25) mg/dL Glucose 121 H (74-99) mg/dL POC Glucose (mg/dL) (75-99) mg/dL Phosphorus 4.9 H (2.5-4.5) mg/dL 04/18/17 04/19/17 04/19/17 Range/Units 18:07 00:01 04:33 WBC (3.8-10.6) k/uL RBC (4.30-5.90) m/uL Hgb (13.0-17.5) gm/dL Hct (39.0-53.0) % RDW (11.5-15.5) % Plt Count (150-450) k/uL Sodium 153 H (137-145) mmol/L Potassium (3.5-5.1) mmol/L Chloride 116 H (98-107) mmol/L BUN 101 H* (9-20) mg/dL Creatinine 3.50 H (0.66-1.25) mg/dL Glucose 119 H (74-99) mg/dL POC Glucose (mg/dL) 113 H 123 H (75-99) mg/dL Phosphorus 4.7 H (2.5-4.5) mg/dL 04/19/17 04/19/17 04/19/17 Range/Units 04:33 06:01 11:50 WBC 12.4 H 11.6 H (3.8-10.6) k/uL RBC 2.92 L 2.65 L (4.30-5.90) m/uL Hgb 9.1 L 8.0 L (13.0-17.5) gm/dL Hct 26.6 L 24.3 L (39.0-53.0) % RDW 18.6 H 18.6 H (11.5-15.5) % Plt Count 82 L 72 L (150-450) k/uL Sodium (137-145) mmol/L Potassium (3.5-5.1) mmol/L Chloride (98-107) mmol/L BUN (9-20) mg/dL Creatinine (0.66-1.25) mg/dL Glucose (74-99) mg/dL POC Glucose (mg/dL) 118 H (75-99) mg/dL Phosphorus (2.5-4.5) mg/dL 04/19/17 Range/Units 12:12 WBC (3.8-10.6) k/uL RBC (4.30-5.90) m/uL Hgb (13.0-17.5) gm/dL Hct (39.0-53.0) % RDW (11.5-15.5) % Plt Count (150-450) k/uL Sodium (137-145) mmol/L Potassium (3.5-5.1) mmol/L Chloride (98-107) mmol/L BUN (9-20) mg/dL Creatinine (0.66-1.25) mg/dL Glucose (74-99) mg/dL POC Glucose (mg/dL) 124 H (75-99) mg/dL Phosphorus (2.5-4.5) mg/dL Assessment and Plan (1) Acute upper GI bleed Narrative/Plan: Secondary to active bleeding GE junction ulceration status post EGD with epinephrine injection and Hemoclip placement Current Visit: Yes Status: Acute Code(s): K92.2 - GASTROINTESTINAL HEMORRHAGE, UNSPECIFIED SNOMED Code(s): 48139925 (2) Acute blood loss anemia Current Visit: Yes Status: Acute Code(s): D62 - ACUTE POSTHEMORRHAGIC ANEMIA SNOMED Code(s): 445681386 (3) Hypothermia Current Visit: Yes Status: Acute Code(s): T68.XXXA - HYPOTHERMIA, INITIAL ENCOUNTER SNOMED Code(s): 671410508 (4) Acute kidney injury Current Visit: Yes Status: Acute Code(s): N17.9 - ACUTE KIDNEY FAILURE, UNSPECIFIED SNOMED Code(s): 65891747 (5) Acute respiratory failure Current Visit: Yes Status: Acute Code(s): J96.00 - ACUTE RESPIRATORY FAILURE , UNSP W HYPOXIA OR HYPERCAPNIA SNOMED Code(s): 82729960 Plan: 1. Diet as tolerated. 2. CBC monitoring. 3. Protonix 40 mg BID. Assessment and plan of care discussed wwith Dr. Iniguez
[2017-04-19] MEDS: DOPamine DRIP 800 MG in DEXTROSE/WATER 1 500ML.BAG IV SCH (14:34)
--- NOTE | 2017-04-19 16:42 | PN ---
PROGRESS NOTE Patient is seen for followup for acute kidney injury. He is currently awake, trying to eat. He is not in any acute distress. Patient is maintained on D5W. He has had good urine output. On exam Pt is comfortable. No acute distress SBP 102-110mmHg. HR 80s Lungs show decreased breath sounds at bases Heart exam shows S1, S2 Ext show edema 2+ bilat. [employer] exam shows no focal deficit. Labs show sodium 153, potassium 4.0. CO2 is 29, BUN 101, serum creatinine 3.5 mg /dL. ASSESSMENT: 1. Acute kidney injury, ischemic acute tubular necrosis, currently nonoliguric with good urine output. 2. Hypernatremia, maintained on D5W. Serum sodium is about the same. The patient is encouraged to increase his free water intake. 3. Anemia with no active bleeding noted currently. Patient came in with GI bleed. His hemoglobin was as low as 4.7 g/dL. Hemoglobin has dropped from 9.1 to 8.0 today. 4. CKD stage 3, secondary to nephrosclerosis. PLAN: Continue with D5 water. Continue to encourage increased plain water intake orally. Continue to avoid nephrotoxic agents. May continue with the Protonix. MMODL / IJN: [id number] / [facility]
[2017-04-19 17:20] LABS: Glucose,Whole Blood 121 mg/dL (75-99)
[2017-04-19 18:32] LABS: Anisocytosis Slight; HCT 25.2 % (39.0-53.0); HGB 8.4 gm/dL (13.0-17.5); MCH 30.7 pg (25.0-35.0); MCHC 33.2 g/dL (31.0-37.0); MCV 92.6 fL (80.0-100.0); Mean Platelet Volume 12.9; Poikilocytosis Slight; RBC 2.73 m/uL (4.30-5.90); RDW 19.3 % (11.5-15.5); WBC 11.4 k/uL (3.8-10.6)
[2017-04-19 18:40] LABS: Platelet Count 70 k/uL (150-450)
--- NOTE | 2017-04-19 18:48 | PN ---
PROGRESS NOTE CHIEF COMPLAINT: Status post upper GI bleed and hypovolemic shock with acute renal damage. HISTORY OF PRESENT ILLNESS: The patient seems to be doing fairly well. Mental status is excellent. Vital signs are fairly stable. There is no obvious bleeding. His creatinine is hovering around 3.5, but he makes urine. PHYSICAL EXAMINATION: He is awake and quite alert. He is oriented. He is neurologically intact. Breath sounds are heard on both sides and his cardiac exam continues to show his slow rate. IMPRESSION: 1. Status post upper gastrointestinal hemorrhage from gastroesophageal junction ulcer. 2. Hypovolemic shock. 3. Chronic renal failure. 4. Acute tubular necrosis. 5. History of arthritis. PLAN: He continues to receive supportive care, and renal function will be the critical determinant of how well he does. MMODL / IJN: [id number] /
[2017-04-19] MEDS: DEXTROSE 5% IN WATER 1,000 ML IV SCH (21:15)
[2017-04-19 23:53] LABS: Glucose,Whole Blood 104 mg/dL (75-99)
[2017-04-20 00:25] LABS: Anisocytosis Slight; HGB 8.5 gm/dL (13.0-17.5); MCH 31.2 pg (25.0-35.0); Mean Platelet Volume 12.6; Poikilocytosis Slight; RBC 2.72 m/uL (4.30-5.90); RDW 19.3 % (11.5-15.5); WBC 11.4 k/uL (3.8-10.6)
[2017-04-20 00:37] LABS: Platelet Count 71 k/uL (150-450)
[2017-04-20] MEDS: DOPamine DRIP 800 MG in DEXTROSE/WATER 1 500ML.BAG IV SCH (03:36)
[2017-04-20 05:22] LABS: Anisocytosis Slight; HGB 8.4 gm/dL (13.0-17.5); MCH 30.9 pg (25.0-35.0); MCHC 33.6 g/dL (31.0-37.0); Mean Platelet Volume 12.7; Poikilocytosis Slight; RBC 2.71 m/uL (4.30-5.90); RDW 19.3 % (11.5-15.5); WBC 11.5 k/uL (3.8-10.6)
[2017-04-20 05:27] LABS: Platelet Count 70 k/uL (150-450)
[2017-04-20 05:34] LABS: Calcium 8.3 mg/dL (8.4-10.2); Magnesium 1.9 mg/dL (1.6-2.3); Phosphorus 4.4 mg/dL (2.5-4.5); Potassium 3.6 mmol/L (3.5-5.1)
[2017-04-20] MEDS ORDERED: MAGNESIUM SULFATE-D5W PMX 1 GM in DEXTROSE/WATER 1 100ML.BAG IVPB ONE (06:15)
[2017-04-20 07:08] LABS: Glucose,Whole Blood 124 mg/dL (75-99)
[2017-04-20] MEDS ORDERED: ALBUTEROL NEBULIZED 2.5 MG/3 ML INHALATION PRN (09:07)
--- NOTE | 2017-04-20 09:58 | XR ---
EXAMINATION TYPE: XR chest 1V portable DATE OF EXAM: 04/20/2017 COMPARISON: 04/18/2017 HISTORY: Shortness of breath TECHNIQUE: Single frontal view of the chest is obtained. FINDINGS: Persistent bilateral consolidation and pleural effusion. Central line noted. Arthropathy o f the shoulders with diffuse osteopenia. Atherosclerotic change aorta. No pneumothorax. IMPRESSION: Persistent bilateral consolidation and pleural effusion. Mild venous congestion not excl uded.
[2017-04-20] MEDS: INSULIN ASPART 100 UNIT/ML 1 ML 10 ML VIAL SQ SCH ×4 (10:52→20:52)
[2017-04-20] MEDS: POTASSIUM CHLORIDE ER 20 MEQ TAB.ER PO SCH ×2 (10:53→13:39)
[2017-04-20] MEDS: PANTOPRAZOLE 40 MG/10 ML VIAL IVP SCH ×2 (10:53→21:04)
[2017-04-20] MEDS: PIPERACILLIN-TAZOBACTAM 3.375 GM in DEXTROSE/WATER 1 50ML.BAG IVPB SCH ×2 (10:54→21:29)
[2017-04-20 12:36] LABS: Glucose,Whole Blood 145 mg/dL (75-99)
[2017-04-20] MEDS ORDERED: FUROSEMIDE 10 MG/ML 4 ML VIAL IV STA (12:42)
[2017-04-20] MEDS: DEXTROSE 5% IN WATER 1,000 ML IV SCH ×2 (13:40→21:03)
--- NOTE | 2017-04-20 13:46 | P.PN ---
Subjective Progress Note Date: 04/20/17 Principal diagnosis: Acute upper GI bleeding and acute hypoxic respiratory failure 89-year-old male patient, known history of congestion heart failure, chronic renal failure, chronic atrial fibrillation who has been taking aspirin and nonsteroidal anti-inflammatory medication outpatient basis. The patient came into the emergency department with episodes of hematemesis and the patient vomited bright red blood around 3-4 times prior to his arrival. In the emergency department he had 2-3 more episodes. The patient was taken apparently aspirin and Naprosyn. He is denying any previous history of alcoholism. He admitted to have some dark stools over the past few days. No chest pain. No syncope. He was feeling increasingly weak and tired. He has chronic lower extremity edema. No previous episodes of GI bleed. The patient was seen in the MRSA problem by gastroenterology. His initial hemoglobin was 6.1 and subsequently dropped down to 4.7. His platelet count was at 135 and dropped to 107. Correlation profile is within normal. The patient is prerenal with a BUN of 108 and creatinine of 2.8. Lipase level was apparently on 32. Lactic acid level was at 5.3 and is currently down to 2.8. Blood was ordered however there has been difficulty in obtaining the right match due to blood compatibility. Ultimately, 2 units of packed RBC were found to be available and the patient is currently getting his first unit. He got moved to the intensive care unit. He is also on IV fluids. [facility] that the patient may get overloaded with fluids. He was placed only on 75 mL an hour. I'm going to give him at least 2-3 L of bolus immediately in the ICU. He was tachycardic in the MRSA problem and the heart rate has slowed down. Most recent blood pressures 120/65. He has 2 peripheral IV lines. The patient was kept on IV Protonix. He is known to have also abdominal aortic aneurysm that has been repaired many years back. He has chronic atrial fibrillation as mentioned. On 04/15/2017, the patient is intensive care units. Note that overnight the patient continued to have episodes of upper GI bleed. NG tube was successfully inserted and the patient had a total of 200 mL of bloody drainage overnight. The patient was still throwing up blood episodically around the NG tube. GI was contacted on multiple occasions and ultimately this morning at around 7:30 AM preparations were done for EGD. By that time the patient was becoming more lethargic, short of breath, tachypneic and he was also developing significant hypoxemia with pulse ox dropped down to 84% while being on oxygen at 3 L/m nasal cannula. Note that overnight, the patient was given boluses of IV fluids and he received a total of 4 L of fluid bolus and he received a total of 5 units of packed RBC. With transfusion the hemoglobin came from as low as 4.7 up to 9.3. Nevertheless there was ongoing issues with bleeding and for that reason EGD was indicated. Based on his overall condition, I opted to intubate the patient to protect his airway. This was done and the intensive care unit without any major difficulties. Following that the patient was x-ray mechanical ventilator and currently the patient assist-control mode at the rate of 20, tidal volume 500 with FiO2 100% and PEEP of 5 and the blood gases still pending. I also inserted a triple lumen catheter in the left subclavian vein. Patient is currently on pressors and currently is on levo fed at the rate of 45 mics. Urine output is low. IV fluid is running at 75 and this will be increased up to 150 mL an hour. The patient is on Diprivan at 25 mics per KG per minute. Post intubation chest x-ray showed no evidence of any pulmonary edema. As such I suspect that the patient could've aspirated and the cracking is being Initiated is probably related to upper airway obstruction related to aspiration. In any rate, currently the patient is intubated and the blood gases are still pending for now. The patient is an 80 fibrillation rate is controlled for now. There is also drop in the plated count down to 84 and a platelet transfusion will also ordered. Renal function is improving and creatinine is down to 2.5. Actiq acid was at 2.8 and currently is down to 1. On today's blood work, the liver function tests within normal limits, the albumin is down to 1.9. Patient was reevaluated today on 04/16/2017, remains on mechanical ventilation, tidal volume of 500 assist control rate of 20 FiO2 of 35% and PEEP of 5. Patient remains on norepinephrine, about to 20 mics per minute, and we plan to titrate this down since the blood pressure seems to be stabilizing. His renal functioning seems to be getting worse, hence I have consulted nephrology to evaluate today. Patient remains on IV fluid at 150 mL per hour, good urine output is noted, however looking at his electrolytes, the patient seems to have a hyperchloremic non-anion gap metabolic acidosis. His bicarb is 14, BUN is 126 , and his creatinine is 3.20. ABG showed a pO2 of 171 pCO2 of 25 pH of 7.41. Hemoglobin today is holding at 10.0 WBC count is 22.4 platelets are 91,000. Chest x-ray shows bibasilar airspace disease and pleural effusion with mild vascular congestion. Suspect a component of right lower lobe aspiration pneumonia based on the chest x-ray. Reevaluated today on 04/17/2017, patient remains on mechanical ventilation, ventilator settings are basically the same as noted above. ABG showed a pO2 of 114 pCO2 of 28 pH of 7.43 BUN is 124 creatinine is 3.50. Patient is status post EGD 2 days ago, and he was found to have esophageal ulcer at the GE junction, status post injection and Endo Clip placement. Patient remains on a low dose of dopamine at 2.5 mcg/kg/m, his urine output is excellent, continues to have intermittent episodes of bradycardia, but no hypotension along with that. Hemoglobin today is 10.0. Bicarb is 18. Patient was reevaluated today on 04/18/2017, patient was extubated yesterday, tolerated the extubation well. Today he seems to be hemodynamically stable, in no form of respiratory distress, on nasal cannula. However his labs are abnormal showing significant hypernatremia, hyperchloremia, and significantly elevated BUN of 119 and creatinine 3.45. His CBC showed hemoglobin of 8.3 and WBC count of 17.1. Total units of blood transfusion since he was admitted on 7 units of packed RBCs. Down in the last few days. Platelets today are coming up to 76,000. Family is at bedside, patient was also seen by the airport control operator today, and his electrolytes will be addressed. Patient was reevaluated today on 04/19/2017, remains in the ICU, he was off norepinephrine earlier today, and I have discontinued his dopamine also. And I' m at least stable, no active bleeding was noted, labs were all reviewed, and the patient seems to be doing relatively well considering. Patient is awake, alert, relatively asymptomatic, would like to have his diet advanced. Reevaluated today on 04/20/2017, remains in the ICU, off norepinephrine, off dopamine, hemodynamically stable, patient is in no distress, but continues to have intermittent episodes of cough and wheezing. Chest x-ray continues to show some consolidation in the right lower lobe, and small pleural effusions bilaterally. Sodium remains elevated in spite of D5W given, BUN remains elevated at 84 and creatinine 3.33. Urine output seems to be reasonable. Patient had a few 100 mL of positive fluid balance. Objective - Vital Signs Vital signs: Vital Signs Temp 95.9 F L 04/20/17 08:00 Pulse 62 04/20/17 13:00 Resp 23 04/20/17 13:00 BP 117/85 04/20/17 13:00 Pulse Ox 98 04/20/17 13:00 Intake & Output 04/19/17 04/20/17 04/20/17 18:59 06:59 18:59 Intake Total 1425 1300 400 Output Total 1185 925 410 Balance 240 375 -10 Weight 89.6 kg Intake: IV 1425 1300 400 Dextrose 5% in Water 1, 400 1300 400 000 ml @ 50 mls/hr IV . Q20H [facility] Rx#:[id number] Dextrose 5% in Water 1, 1025 000 ml @ 75 mls/hr IV . [id number] [facility] Rx#:[id number] Output: Urine 1185 925 410 Other: Voiding Method Indwelling Catheter Indwelling Catheter Indwelling Catheter - Exam General appearance: alert, in no apparent distress, on nasal cannula, Head exam: Atraumatic, normocephalic Eye exam: PERRLA, EOMI ENT exam: Dry mucous membranes, throat is clear, Neck exam: Neck supple no neck masses no thyromegaly, . Respiratory exam: Diminished breath sounds and crackles mostly at the right base otherwise unremarkable. Some wheezing on forced expiratory maneuver especially on the right side was noted. Symmetrical chest expansion noted. Cardiovascular Exam: Irregular rhythm, no S3 gallop, 2/6 systolic murmur thought the precordium GI/Abdominal exam: Soft, nontender, no megaly, no rebound, positive bowel sounds. Rectal exam: Not performed Extremities exam: No clubbing edema or cyanosis. Good pulses bilaterally. Neurological exam: No gross focal neurologic deficit alert oriented 3 Psychiatric exam: Normal mood affect and normal mental status examination. Skin exam: Present: warm, dry, intact, pallor. No cyanosis. - Labs CBC & Chem 7: 04/20/17 05:10 04/20/17 05:10 Labs: Abnormal Lab Results - Last 24 Hours (Table) 04/19/17 04/19/17 04/19/17 Range/Units 16:15 17:19 18:20 WBC 11.4 H (3.8-10.6) k/uL RBC 2.73 L (4.30-5.90) m/uL Hgb 8.4 L (13.0-17.5) gm/dL Hct 25.2 L (39.0-53.0) % RDW 19.3 H (11.5-15.5) % Plt Count 70 L (150-450) k/uL Sodium 150 H (137-145) mmol/L Chloride (98-107) mmol/L BUN (9-20) mg/dL Creatinine (0.66-1.25) mg/dL Glucose (74-99) mg/dL POC Glucose (mg/dL) 121 H (75-99) mg/dL Calcium (8.4-10.2) mg/dL 04/19/17 04/20/17 04/20/17 Range/Units 23:51 00:08 05:10 WBC 11.4 H 11.5 H (3.8-10.6) k/uL RBC 2.72 L 2.71 L (4.30-5.90) m/uL Hgb 8.5 L 8.4 L (13.0-17.5) gm/dL Hct 25.0 L 25.0 L (39.0-53.0) % RDW 19.3 H 19.3 H (11.5-15.5) % Plt Count 71 L 70 L (150-450) k/uL Sodium (137-145) mmol/L Chloride (98-107) mmol/L BUN (9-20) mg/dL Creatinine (0.66-1.25) mg/dL Glucose (74-99) mg/dL POC Glucose (mg/dL) 104 H (75-99) mg/dL Calcium (8.4-10.2) mg/dL 04/20/17 04/20/17 04/20/17 Range/Units 05:10 07:06 12:33 WBC (3.8-10.6) k/uL RBC (4.30-5.90) m/uL Hgb (13.0-17.5) gm/dL Hct (39.0-53.0) % RDW (11.5-15.5) % Plt Count (150-450) k/uL Sodium 151 H (137-145) mmol/L Chloride 116 H (98-107) mmol/L BUN 84 H* (9-20) mg/dL Creatinine 3.33 H (0.66-1.25) mg/dL Glucose 111 H (74-99) mg/dL POC Glucose (mg/dL) 124 H 145 H (75-99) mg/dL Calcium 8.3 L (8.4-10.2) mg/dL Assessment and Plan Assessment: 1 acute upper GI bleeding, secondary to distal esophageal ulcer. Status post injection and Endo Clip placement. Remains on Protonix at 40 mg IV push every 12 hours. On 04/15/2017, the patient is still bleeding actively. NG tube is in place. He has been resuscitated with IV fluids and received a total of 4 L of IV fluid and 5 units of packed RBC. Awaiting EGD. Hemodynamically he is condition has gotten worse. He became progressively hypotensive and he had to be placed on pressors and currently is on 45 mics of norepinephrine infusion. He is being given IV fluids. His most recent hemoglobin is at 9.3. Currently is intubated on a mechanical ventilator. There is a obvious possibility that the patient have aspirated which put him in significant respiratory distress and acute hypoxic respiratory failure. As such the patient was intubated and placed on a mechanical ventilation. Post intubation chest x-ray shows no evidence of pneumonia. Blood gases shows adequate oxygenation. On 04/16/2017, patient does not have any active bleeding at present, patient seems to be doing well overall, remains on norepinephrine at 20 g which I plan to taper and hopefully discontinue today. Renal functioning seems to be getting worse hence a nephrology consult was initiated. In the meantime continue IV fluids, patient does have non-anion gap hyperchloremic metabolic acidosis. On 04/17/2017, patient had one episode of bleeding last night, not clear whether this is old blood or new active bleeding. Remains on mechanical ventilation, patient be given a trial of weaning/spontaneous breathing trial. Off propofol the patient was noted to be extremely appropriate. And he seems to be hemodynamically stable. On 04/18/2017, patient tolerated extubation well over the last 24 hours, relatively asymptomatic, has significant abnormal labs, these will be addressed by changing his IV fluids, and patient will be monitored in the ICU for the next 24 hours. On 04/19/2017, patient will remain on IV fluids to correct his slightly elevated sodium, his diet will be advanced, dopamine was discontinued, norepinephrine was discontinued, we will likely transfer to a monitor bed on selective today. On 04/20/2017, patient remains is off norepinephrine, off dopamine, hemodynamically stable, no further episodes of active GI bleeding noted, hence we'll transfer the patient today out of the ICU. 2 profound anemia secondary to GI related blood loss. Received a total of 7 units of packed RBCs since admission. 3 acute kidney injury, secondary to intravascular volume depletion. The patient 's creatinine is improving and the creatinine is now 3.20. 4 acute hypoxic respiratory failure currently intubated on a mechanical ventilator, possible aspiration. Right lower lobe pneumonia suspected, patient is on Zosyn. 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 fib rhythm 11 thrombocytopenia 12 leukocytosis 13 acute hypernatremia, secondary to free water deficit. Patient remains on D5W IV fluid. Recommendation: Present supportive care measures, patient will definitely transferred today to a monitor bed on selective. We'll continue to follow, albuterol updrafts were added. Time with Patient: Less than 30
[2017-04-20] MEDS: ALBUTEROL NEBULIZED 2.5 MG/3 ML INHALATION SCH ×3 (15:34→21:30)
--- NOTE | 2017-04-20 19:19 | PN ---
PROGRESS NOTE Patient is seen for followup for acute kidney injury secondary to ischemic ATN, currently nonoliguric with good urine output. The patient is maintained on D5W; however, he was mildly short of breath. He is not in any acute distress. He has a good appetite and has been eating. Blood pressure is 147/64, heart rate 85 per minute. He is afebrile. HEART: S1, S2. LUNGS: Bilateral breath sounds are heard. Abdomen is soft, nontender. Lower extremities show edema 2+ bilaterally. DIRECTOR OF CONSTRUCTION is grossly intact. Patient is moving all 4 extremities. LABS: Show serum creatinine 3.3, BUN 84, sodium 151, chloride 116, potassium 3.6. ASSESSMENT: 1. Acute kidney injury, acute tubular necrosis, currently slowly improving. Serum creatinine is down to 3.3. 2. Hypernatremia, maintained on D5W. Decrease rate and will give 1 dose of Lasix. Continue to encourage free water intake. 3. Status post ventilator-dependent respiratory failure. 4. Anemia secondary to gastrointestinal bleed, status post packed red blood cells transfusion. No active bleeding noted at this time, status post endoscopy which showed distal esophageal ulcer, status post injection and Endo clip placement. PLAN: Decrease D5W, Lasix x1. Encourage increased free water intake. Repeat labs in a.m. MMODL / IJN: [id number] /
[2017-04-20 20:48] LABS: Glucose,Whole Blood 121 mg/dL (75-99)
[2017-04-21] MEDS: DOPamine DRIP 800 MG in DEXTROSE/WATER 1 500ML.BAG IV SCH (02:06)
[2017-04-21] MEDS: INSULIN ASPART 100 UNIT/ML 1 ML 10 ML VIAL SQ SCH ×4 (06:06→20:46)
[2017-04-21 06:08] LABS: Glucose,Whole Blood 100 mg/dL (75-99)
[2017-04-21 06:55] LABS: Anisocytosis Slight; HCT 24.7 % (39.0-53.0); HGB 8.1 gm/dL (13.0-17.5); MCHC 32.6 g/dL (31.0-37.0); MCV 95.1 fL (80.0-100.0); Macrocytosis Slight; Mean Platelet Volume 11.5; Poikilocytosis Slight; RDW 19.7 % (11.5-15.5); WBC 12.4 k/uL (3.8-10.6)
[2017-04-21 06:56] LABS: Platelet Count 87 k/uL (150-450)
[2017-04-21] MEDS: ALBUTEROL NEBULIZED 2.5 MG/3 ML INHALATION SCH ×4 (07:36→20:55)
[2017-04-21] MEDS: PANTOPRAZOLE 40 MG/10 ML VIAL IVP SCH ×2 (08:39→20:47)
[2017-04-21] MEDS: PIPERACILLIN-TAZOBACTAM 3.375 GM in DEXTROSE/WATER 1 50ML.BAG IVPB SCH ×2 (11:06→20:46)
[2017-04-21 11:21] LABS: Glucose,Whole Blood 125 mg/dL (75-99)
--- NOTE | 2017-04-21 12:25 | P.PN ---
Subjective Progress Note Date: 04/21/17 Principal diagnosis: Acute upper GI bleeding and acute hypoxic respiratory failure 89-year-old male patient, known history of congestion heart failure, chronic renal failure, chronic atrial fibrillation who has been taking aspirin and nonsteroidal anti-inflammatory medication outpatient basis. The patient came into the emergency department with episodes of hematemesis and the patient vomited bright red blood around 3-4 times prior to his arrival. In the emergency department he had 2-3 more episodes. The patient was taken apparently aspirin and Naprosyn. He is denying any previous history of alcoholism. He admitted to have some dark stools over the past few days. No chest pain. No syncope. He was feeling increasingly weak and tired. He has chronic lower extremity edema. No previous episodes of GI bleed. The patient was seen in the MRSA problem by gastroenterology. His initial hemoglobin was 6.1 and subsequently dropped down to 4.7. His platelet count was at 135 and dropped to 107. Correlation profile is within normal. The patient is prerenal with a BUN of 108 and creatinine of 2.8. Lipase level was apparently on 32. Lactic acid level was at 5.3 and is currently down to 2.8. Blood was ordered however there has been difficulty in obtaining the right match due to blood compatibility. Ultimately, 2 units of packed RBC were found to be available and the patient is currently getting his first unit. He got moved to the intensive care unit. He is also on IV fluids. There [facility] that the patient may get overloaded with fluids. He was placed only on 75 mL an hour. I'm going to give him at least 2-3 L of bolus immediately in the ICU. He was tachycardic in the MRSA problem and the heart rate has slowed down. Most recent blood pressures 120/65. He has 2 peripheral IV lines. The patient was kept on IV Protonix. He is known to have also abdominal aortic aneurysm that has been repaired many years back. He has chronic atrial fibrillation as mentioned. On 04/15/2017, the patient is intensive care units. Note that overnight the patient continued to have episodes of upper GI bleed. NG tube was successfully inserted and the patient had a total of 200 mL of bloody drainage overnight. The patient was still throwing up blood episodically around the NG tube. GI was contacted on multiple occasions and ultimately this morning at around 7:30 AM preparations were done for EGD. By that time the patient was becoming more lethargic, short of breath, tachypneic and he was also developing significant hypoxemia with pulse ox dropped down to 84% while being on oxygen at 3 L/m nasal cannula. Note that overnight, the patient was given boluses of IV fluids and he received a total of 4 L of fluid bolus and he received a total of 5 units of packed RBC. With transfusion the hemoglobin came from as low as 4.7 up to 9.3. Nevertheless there was ongoing issues with bleeding and for that reason EGD was indicated. Based on his overall condition, I opted to intubate the patient to protect his airway. This was done and the intensive care unit without any major difficulties. Following that the patient was x-ray mechanical ventilator and currently the patient assist-control mode at the rate of 20, tidal volume 500 with FiO2 100% and PEEP of 5 and the blood gases still pending. I also inserted a triple lumen catheter in the left subclavian vein. Patient is currently on pressors and currently is on levo fed at the rate of 45 mics. Urine output is low. IV fluid is running at 75 and this will be increased up to 150 mL an hour. The patient is on Diprivan at 25 mics per KG per minute. Post intubation chest x-ray showed no evidence of any pulmonary edema. As such I suspect that the patient could've aspirated and the cracking is being Initiated is probably related to upper airway obstruction related to aspiration. In any rate, currently the patient is intubated and the blood gases are still pending for now. The patient is an 80 fibrillation rate is controlled for now. There is also drop in the plated count down to 84 and a platelet transfusion will also ordered. Renal function is improving and creatinine is down to 2.5. Actiq acid was at 2.8 and currently is down to 1. On today's blood work, the liver function tests within normal limits, the albumin is down to 1.9. Patient was reevaluated today on 04/16/2017, remains on mechanical ventilation, tidal volume of 500 assist control rate of 20 FiO2 of 35% and PEEP of 5. Patient remains on norepinephrine, about to 20 mics per minute, and we plan to titrate this down since the blood pressure seems to be stabilizing. His renal functioning seems to be getting worse, hence I have consulted nephrology to evaluate today. Patient remains on IV fluid at 150 mL per hour, good urine output is noted, however looking at his electrolytes, the patient seems to have a hyperchloremic non-anion gap metabolic acidosis. His bicarb is 14, BUN is 126 , and his creatinine is 3.20. ABG showed a pO2 of 171 pCO2 of 25 pH of 7.41. Hemoglobin today is holding at 10.0 WBC count is 22.4 platelets are 91,000. Chest x-ray shows bibasilar airspace disease and pleural effusion with mild vascular congestion. Suspect a component of right lower lobe aspiration pneumonia based on the chest x-ray. Reevaluated today on 04/17/2017, patient remains on mechanical ventilation, ventilator settings are basically the same as noted above. ABG showed a pO2 of 114 pCO2 of 28 pH of 7.43 BUN is 124 creatinine is 3.50. Patient is status post EGD 2 days ago, and he was found to have esophageal ulcer at the GE junction, status post injection and Endo Clip placement. Patient remains on a low dose of dopamine at 2.5 mcg/kg/m, his urine output is excellent, continues to have intermittent episodes of bradycardia, but no hypotension along with that. Hemoglobin today is 10.0. Bicarb is 18. Patient was reevaluated today on 04/18/2017, patient was extubated yesterday, tolerated the extubation well. Today he seems to be hemodynamically stable, in no form of respiratory distress, on nasal cannula. However his labs are abnormal showing significant hypernatremia, hyperchloremia, and significantly elevated BUN of 119 and creatinine 3.45. His CBC showed hemoglobin of 8.3 and WBC count of 17.1. Total units of blood transfusion since he was admitted on 7 units of packed RBCs. Down in the last few days. Platelets today are coming up to 76,000. Family is at bedside, patient was also seen by the retail client solutions analyst today, and his electrolytes will be addressed. Patient was reevaluated today on 04/19/2017, remains in the ICU, he was off norepinephrine earlier today, and I have discontinued his dopamine also. And I' m at least stable, no active bleeding was noted, labs were all reviewed, and the patient seems to be doing relatively well considering. Patient is awake, alert, relatively asymptomatic, would like to have his diet advanced. Reevaluated today on 04/20/2017, remains in the ICU, off norepinephrine, off dopamine, hemodynamically stable, patient is in no distress, but continues to have intermittent episodes of cough and wheezing. Chest x-ray continues to show some consolidation in the right lower lobe, and small pleural effusions bilaterally. Sodium remains elevated in spite of D5W given, BUN remains elevated at 84 and creatinine 3.33. Urine output seems to be reasonable. Patient had a few 100 mL of positive fluid balance. Reevaluated today 04/21/2017, patient is on selective monitored bed, doing well, relatively asymptomatic, hemodynamically stable. Hemoglobin is 8.1 WBC count is 12.4. No symptoms to suggest any active bleeding. Patient denies any shortness of breath, no cough, no wheezing. Chest x-ray from yesterday continues to show some bilateral consolidation and pleural effusion related to aspiration and some component of fluid overload. Objective - Vital Signs Vital signs: Vital Signs Temp 97.7 F 04/21/17 11:37 Pulse 85 04/21/17 11:37 Resp 20 04/21/17 11:37 BP 116/81 04/21/17 11:37 Pulse Ox 93 L 04/21/17 08:41 Intake & Output 04/20/17 04/21/17 04/21/17 18:59 06:59 18:59 Intake Total 400 400 Output Total 410 4800 Balance -10 -4400 Weight 89.6 kg 98.5 kg Intake: IV 400 400 Dextrose 5% in Water 1, 400 400 000 ml @ 50 mls/hr IV . Q20H [facility] Rx#:[id number] Output: Urine 410 4800 Other: Voiding Method Indwelling Catheter Indwelling Catheter Indwelling Catheter - Exam General appearance: alert, in no apparent distress, on nasal cannula, Head exam: Atraumatic, normocephalic Eye exam: PERRLA, EOMI ENT exam: Dry mucous membranes, throat is clear, Neck exam: Neck supple no neck masses no thyromegaly, . Respiratory exam: Diminished breath sounds and crackles mostly at the right base otherwise unremarkable. Some wheezing on forced expiratory maneuver especially on the right side was noted. Symmetrical chest expansion noted. Cardiovascular Exam: Irregular rhythm, no S3 gallop, 2/6 systolic murmur thought the precordium GI/Abdominal exam: Soft, nontender, no megaly, no rebound, positive bowel sounds. Rectal exam: Not performed Extremities exam: No clubbing edema or cyanosis. Good pulses bilaterally. Psychiatric exam: Normal mood affect and normal mental status examination. Skin exam: Present: warm, dry, intact, pallor. No cyanosis. Neurologic: No gross focal neurologic deficits. - Labs CBC & Chem 7: 04/21/17 06:23 04/20/17 05:10 Labs: Abnormal Lab Results - Last 24 Hours (Table) 04/20/17 04/20/17 04/21/17 Range/Units 12:33 20:41 06:06 WBC (3.8-10.6) k/uL RBC (4.30-5.90) m/uL Hgb (13.0-17.5) gm/dL Hct (39.0-53.0) % RDW (11.5-15.5) % Plt Count (150-450) k/uL POC Glucose (mg/dL) 145 H 121 H 100 H (75-99) mg/dL 04/21/17 04/21/17 Range/Units 06:23 11:09 WBC 12.4 H (3.8-10.6) k/uL RBC 2.60 L (4.30-5.90) m/uL Hgb 8.1 L (13.0-17.5) gm/dL Hct 24.7 L (39.0-53.0) % RDW 19.7 H (11.5-15.5) % Plt Count 87 L (150-450) k/uL POC Glucose (mg/dL) 125 H (75-99) mg/dL Assessment and Plan Assessment: 1 acute upper GI bleeding, secondary to distal esophageal ulcer. Status post injection and Endo Clip placement. Remains on Protonix at 40 mg IV push every 12 hours. On 04/15/2017, the patient is still bleeding actively. NG tube is in place. He has been resuscitated with IV fluids and received a total of 4 L of IV fluid and 5 units of packed RBC. Awaiting EGD. Hemodynamically he is condition has gotten worse. He became progressively hypotensive and he had to be placed on pressors and currently is on 45 mics of norepinephrine infusion. He is being given IV fluids. His most recent hemoglobin is at 9.3. Currently is intubated on a mechanical ventilator. There is a obvious possibility that the patient have aspirated which put him in significant respiratory distress and acute hypoxic respiratory failure. As such the patient was intubated and placed on a mechanical ventilation. Post intubation chest x-ray shows no evidence of pneumonia. Blood gases shows adequate oxygenation. On 04/16/2017, patient does not have any active bleeding at present, patient seems to be doing well overall, remains on norepinephrine at 20 g which I plan to taper and hopefully discontinue today. Renal functioning seems to be getting worse hence a nephrology consult was initiated. In the meantime continue IV fluids, patient does have non-anion gap hyperchloremic metabolic acidosis. On 04/17/2017, patient had one episode of bleeding last night, not clear whether this is old blood or new active bleeding. Remains on mechanical ventilation, patient be given a trial of weaning/spontaneous breathing trial. Off propofol the patient was noted to be extremely appropriate. And he seems to be hemodynamically stable. On 04/18/2017, patient tolerated extubation well over the last 24 hours, relatively asymptomatic, has significant abnormal labs, these will be addressed by changing his IV fluids, and patient will be monitored in the ICU for the next 24 hours. On 04/19/2017, patient will remain on IV fluids to correct his slightly elevated sodium, his diet will be advanced, dopamine was discontinued, norepinephrine was discontinued, we will likely transfer to a monitor bed on selective today. On 04/20/2017, patient remains is off norepinephrine, off dopamine, hemodynamically stable, no further episodes of active GI bleeding noted, hence we'll transfer the patient today out of the ICU. On 04/21/2017, patient continues to do well, remains on antibiotics, bronchodilators, Protonix for his GI bleeding, will eventually need evaluation for possible rehab placement. We'll continue to follow. 2 profound anemia secondary to GI related blood loss. Received a total of 7 units of packed RBCs since admission. 3 acute kidney injury, secondary to intravascular volume depletion. The patient 's creatinine is improving and the creatinine is now 3.33 4 acute hypoxic respiratory failure currently intubated on a mechanical ventilator, possible aspiration. Right lower lobe pneumonia suspected, patient is on Zosyn. 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 fib rhythm 11 thrombocytopenia 12 leukocytosis 13 acute hypernatremia, secondary to free water deficit. Patient remains on D5W IV fluid. Being addressed by nephrology on the case. Recommendation: Present supportive care measures, patient will definitely transferred today to a monitor bed on selective. We'll continue to follow, albuterol updrafts were added. Continue antibiotics, incentive spirometry, possible referral to rehab early next week. Discussed his condition with his at bedside. Time with Patient: Less than 30
--- NOTE | 2017-04-21 13:32 | PN ---
PROGRESS NOTE DATE OF SERVICE: 04/20/2017. CHIEF COMPLAINT: Status post upper GI bleed and hypovolemic shock. HISTORY OF PRESENT ILLNESS: This patient is doing fairly well. He is able to eat and swallow. Speech is still somewhat slow. Vital signs are stabilizing and his pulse is improving. He may be moving out to a regular floor today. There has been no signs of bleeding and his creatinine is fairly stable. PHYSICAL EXAM: He remains pale. Chest is clear. Cardiac exam demonstrates an irregularly irregular pulse, which is slow. Abdomen is soft, nontender. Extremities are normal. IMPRESSION: 1. Status post hypovolemic shock following upper gastrointestinal hemorrhage from gastroesophageal junction ulcer. 2. Chronic renal failure with superimposed acute tubular necrosis. PLAN: Continue to follow and he may be moved out to selective care today. MMODL / IJN: [id number] /
--- NOTE | 2017-04-21 13:32 | PN ---
PROGRESS NOTE DATE OF SERVICE: 04/21/2017. CHIEF COMPLAINT: Hypovolemic shock, upper GI bleed. HISTORY OF PRESENT ILLNESS: This gentleman is complaining some discomfort in the coccyx area. PHYSICAL EXAM: He remains awake and alert. Vital signs are stable. Chest is clear. Cardiac exam is unchanged. Abdomen is soft. Extremities demonstrated some cyanosis of the distal fingers, which is resultant from his recent episode of hypotension. PLAN: 1. Try keep patient off of coccyx area. 2. Start working on discharge plan for rehab. MMODL / IJN: [id number] /
--- NOTE | 2017-04-21 15:02 | PN ---
PROGRESS NOTE DATE OF SERVICE: 04/21/2017. HISTORY: This is doctor Johnathan dictating a progress note on Colten mariano. The patient is seen for followup for acute kidney injury. Renal function is improving. He has been transferred out of the ICU. The patient is maintained on D5 water at 50 mL an hours. He is hungry and wants to eat. EXAMINATION: Blood pressure is 101/68, heart rate 85 per minute. He is afebrile. Examination of the heart, S1, S2. Examination of lungs, bilateral breath sounds are heard. Abdomen is soft, nontender. Examination of lower extremity shows edema 1+ bilaterally. RN OCCUPATIONAL exam is grossly intact. Patient moving all 4 extremities. LABS: Hemoglobin 8.1 g/dL, sodium 151, potassium 3.6, chloride 116, BUN 84, serum creatinine 3.3. ASSESSMENT: 1. Acute kidney injury, acute tubular necrosis, ischemic, currently nonoliguric and improving. Etiology was hypotension hypoperfusion. 2. Hypernatremia secondary to free water deficit. The patient remains on D5W. Continue at the current rate and continue to encourage increased free water intake. 3. Anemia associated with GI bleed this admission, status post multiple packed RBCs transfusion. Currently stable. 4. Gastrointestinal bleed, status post EGD which showed distal esophageal ulcer, status post injection and Endoclip placement. 5. Status post vent-dependent respiratory failure. 6. Third-spacing and interstitial edema. Expect improvement with increased nutrition and mobility. PLAN: Continue with the D5W for now and encourage increased free water intake. Repeat labs in a.m. MMODL / IJN: [id number] /
[2017-04-21 17:32] LABS: Glucose,Whole Blood 135 mg/dL (75-99)
[2017-04-21 20:33] LABS: Glucose,Whole Blood 135 mg/dL (75-99)
[2017-04-22] MEDS: INSULIN ASPART 100 UNIT/ML 1 ML 10 ML VIAL SQ SCH ×4 (06:14→21:13)
[2017-04-22 06:15] LABS: Glucose,Whole Blood 111 mg/dL (75-99)
[2017-04-22] MEDS: DEXTROSE 5% IN WATER 1,000 ML IV SCH (06:15)
[2017-04-22] MEDS: ALBUTEROL NEBULIZED 2.5 MG/3 ML INHALATION SCH ×4 (08:21→21:09)
[2017-04-22] MEDS: PANTOPRAZOLE 40 MG/10 ML VIAL IVP SCH ×2 (08:56→20:34)
[2017-04-22] MEDS: PIPERACILLIN-TAZOBACTAM 3.375 GM in DEXTROSE/WATER 1 50ML.BAG IVPB SCH ×2 (08:59→20:34)
[2017-04-22 09:32] LABS: Calcium 8.5 mg/dL (8.4-10.2); Potassium 3.8 mmol/L (3.5-5.1)
--- NOTE | 2017-04-22 10:20 | PN ---
PROGRESS NOTE The patient is seen for followup for acute kidney injury and hypernatremia. His sodium is down to 148 today. The patient is comfortable, awake. He is asking for food. He denies any significant complaints. Renal function slowly improving with creatinine at 3.2 today. EXAMINATION: Blood pressure is 123/66, heart rate 80 per minute. He is afebrile. Examination of the heart: S1, S2. Examination lungs: Bilateral breath sounds are heard. Abdomen is soft, nontender. Examination lower extremity shows edema 1+ bilaterally with edema upper and lower extremities. CLOTH MERCERIZER OPERATOR exam is grossly intact. LABS: Sodium 148, potassium 3.8, BUN 63, serum creatinine 3.24. ASSESSMENT: 1. Acute kidney injury, acute tubular necrosis, currently stable with slow improvement, nonoliguric, etiology was hypoperfusion. 2. Hypernatremia. Maintained on D5W and continue to encourage increased free water intake. 3. Anemia associated with GI bleed, status post multiple packed RBCs transfusion. 4. Gastrointestinal bleed status post EGD, which showed distal esophageal ulcer, status post injection and Endoclip placement. 5. Status post vent dependent respiratory failure. PLAN: Will DC the D5W tomorrow. Continue to encourage free water intake. Continue to avoid nephrotoxic agents. MMODL / IJN: [id number] /
[2017-04-22 12:18] LABS: Glucose,Whole Blood 100 mg/dL (75-99)
--- NOTE | 2017-04-22 14:08 | P.PN ---
Subjective Progress Note Date: 04/22/17 Principal diagnosis: Acute upper GI bleeding and acute hypoxic respiratory failure 89-year-old male patient, known history of congestion heart failure, chronic renal failure, chronic atrial fibrillation who has been taking aspirin and nonsteroidal anti-inflammatory medication outpatient basis. The patient came into the emergency department with episodes of hematemesis and the patient vomited bright red blood around 3-4 times prior to his arrival. In the emergency department he had 2-3 more episodes. The patient was taken apparently aspirin and Naprosyn. He is denying any previous history of alcoholism. He admitted to have some dark stools over the past few days. No chest pain. No syncope. He was feeling increasingly weak and tired. He has chronic lower extremity edema. No previous episodes of GI bleed. The patient was seen in the MRSA problem by gastroenterology. His initial hemoglobin was 6.1 and subsequently dropped down to 4.7. His platelet count was at 135 and dropped to 107. Correlation profile is within normal. The patient is prerenal with a BUN of 108 and creatinine of 2.8. Lipase level was apparently on 32. Lactic acid level was at 5.3 and is currently down to 2.8. Blood was ordered however there has been difficulty in obtaining the right match due to blood compatibility. Ultimately, 2 units of packed RBC were found to be available and the patient is currently getting his first unit. He got moved to the intensive care unit. He is also on IV fluids. There was concern [facility] that the patient may get overloaded with fluids. He was placed only on 75 mL an hour. I'm going to give him at least 2-3 L of bolus immediately in the ICU. He was tachycardic in the MRSA problem and the heart rate has slowed down. Most recent blood pressures 120/65. He has 2 peripheral IV lines. The patient was kept on IV Protonix. He is known to have also abdominal aortic aneurysm that has been repaired many years back. He has chronic atrial fibrillation as mentioned. On 04/15/2017, the patient is intensive care units. Note that overnight the patient continued to have episodes of upper GI bleed. NG tube was successfully inserted and the patient had a total of 200 mL of bloody drainage overnight. The patient was still throwing up blood episodically around the NG tube. GI was contacted on multiple occasions and ultimately this morning at around 7:30 AM preparations were done for EGD. By that time the patient was becoming more lethargic, short of breath, tachypneic and he was also developing significant hypoxemia with pulse ox dropped down to 84% while being on oxygen at 3 L/m nasal cannula. Note that overnight, the patient was given boluses of IV fluids and he received a total of 4 L of fluid bolus and he received a total of 5 units of packed RBC. With transfusion the hemoglobin came from as low as 4.7 up to 9.3. Nevertheless there was ongoing issues with bleeding and for that reason EGD was indicated. Based on his overall condition, I opted to intubate the patient to protect his airway. This was done and the intensive care unit without any major difficulties. Following that the patient was x-ray mechanical ventilator and currently the patient assist-control mode at the rate of 20, tidal volume 500 with FiO2 100% and PEEP of 5 and the blood gases still pending. I also inserted a triple lumen catheter in the left subclavian vein. Patient is currently on pressors and currently is on levo fed at the rate of 45 mics. Urine output is low. IV fluid is running at 75 and this will be increased up to 150 mL an hour. The patient is on Diprivan at 25 mics per KG per minute. Post intubation chest x-ray showed no evidence of any pulmonary edema. As such I suspect that the patient could've aspirated and the cracking is being Initiated is probably related to upper airway obstruction related to aspiration. In any rate, currently the patient is intubated and the blood gases are still pending for now. The patient is an 80 fibrillation rate is controlled for now. There is also drop in the plated count down to 84 and a platelet transfusion will also ordered. Renal function is improving and creatinine is down to 2.5. Actiq acid was at 2.8 and currently is down to 1. On today's blood work, the liver function tests within normal limits, the albumin is down to 1.9. Patient was reevaluated today on 04/16/2017, remains on mechanical ventilation, tidal volume of 500 assist control rate of 20 FiO2 of 35% and PEEP of 5. Patient remains on norepinephrine, about to 20 mics per minute, and we plan to titrate this down since the blood pressure seems to be stabilizing. His renal functioning seems to be getting worse, hence I have consulted nephrology to evaluate today. Patient remains on IV fluid at 150 mL per hour, good urine output is noted, however looking at his electrolytes, the patient seems to have a hyperchloremic non-anion gap metabolic acidosis. His bicarb is 14, BUN is 126 , and his creatinine is 3.20. ABG showed a pO2 of 171 pCO2 of 25 pH of 7.41. Hemoglobin today is holding at 10.0 WBC count is 22.4 platelets are 91,000. Chest x-ray shows bibasilar airspace disease and pleural effusion with mild vascular congestion. Suspect a component of right lower lobe aspiration pneumonia based on the chest x-ray. Reevaluated today on 04/17/2017, patient remains on mechanical ventilation, ventilator settings are basically the same as noted above. ABG showed a pO2 of 114 pCO2 of 28 pH of 7.43 BUN is 124 creatinine is 3.50. Patient is status post EGD 2 days ago, and he was found to have esophageal ulcer at the GE junction, status post injection and Endo Clip placement. Patient remains on a low dose of dopamine at 2.5 mcg/kg/m, his urine output is excellent, continues to have intermittent episodes of bradycardia, but no hypotension along with that. Hemoglobin today is 10.0. Bicarb is 18. Patient was reevaluated today on 04/18/2017, patient was extubated yesterday, tolerated the extubation well. Today he seems to be hemodynamically stable, in no form of respiratory distress, on nasal cannula. However his labs are abnormal showing significant hypernatremia, hyperchloremia, and significantly elevated BUN of 119 and creatinine 3.45. His CBC showed hemoglobin of 8.3 and WBC count of 17.1. Total units of blood transfusion since he was admitted on 7 units of packed RBCs. Down in the last few days. Platelets today are coming up to 76,000. Family is at bedside, patient was also seen by the batch plant operator today, and his electrolytes will be addressed. Patient was reevaluated today on 04/19/2017, remains in the ICU, he was off norepinephrine earlier today, and I have discontinued his dopamine also. And I' m at least stable, no active bleeding was noted, labs were all reviewed, and the patient seems to be doing relatively well considering. Patient is awake, alert, relatively asymptomatic, would like to have his diet advanced. Reevaluated today on 04/20/2017, remains in the ICU, off norepinephrine, off dopamine, hemodynamically stable, patient is in no distress, but continues to have intermittent episodes of cough and wheezing. Chest x-ray continues to show some consolidation in the right lower lobe, and small pleural effusions bilaterally. Sodium remains elevated in spite of D5W given, BUN remains elevated at 84 and creatinine 3.33. Urine output seems to be reasonable. Patient had a few 100 mL of positive fluid balance. Reevaluated today 04/21/2017, patient is on selective monitored bed, doing well, relatively asymptomatic, hemodynamically stable. Hemoglobin is 8.1 WBC count is 12.4. No symptoms to suggest any active bleeding. Patient denies any shortness of breath, no cough, no wheezing. Chest x-ray from yesterday continues to show some bilateral consolidation and pleural effusion related to aspiration and some component of fluid overload. Reevaluated today on 04/22/2017, apparently he had according to the some episode of confusion last night and he called her complaining of being cold and shivering. According to her he was definitely confused, however today the patient is doing great, he is alert oriented, and in no form of respiratory distress. Labs were reviewed, sodium is coming down to 148 his BUN is coming down to 63 and creatinine is down to 3.24. Hemoglobin is holding at around 8.1. Chest x-ray from the was reviewed. And I have recommended repeat chest x-ray in a.m. if it continues to improve, we will likely sign off and see on when necessary basis. Objective - Vital Signs Vital signs: Vital Signs Temp 97.7 F 04/22/17 12:23 Pulse 74 04/22/17 12:23 Resp 20 04/22/17 12:23 BP 129/63 04/22/17 12:23 Pulse Ox 97 04/22/17 12:23 Intake & Output 04/21/17 04/22/17 04/22/17 18:59 06:59 18:59 Intake Total 400 Output Total 1450 Balance -1050 Weight 96 kg Intake: IV 400 Dextrose 5% in Water 1, 400 000 ml @ 50 mls/hr IV . Q20H [facility] Rx#:[id number] Output: Urine 1450 Other: Voiding Method Indwelling Catheter Indwelling Catheter Indwelling Catheter # Voids 2 - Exam General appearance: alert, in no apparent distress, on nasal cannula, Head exam: Atraumatic, normocephalic Eye exam: PERRLA, EOMI ENT exam: Dry mucous membranes, throat is clear, Neck exam: Neck supple no neck masses no thyromegaly, . Respiratory exam: Diminished breath sounds and crackles mostly at the right base otherwise unremarkable. No rhonchi or wheezes noted. Cardiovascular Exam: Irregular rhythm, no S3 gallop, 2/6 systolic murmur thought the precordium GI/Abdominal exam: Soft, nontender, no megaly, no rebound, positive bowel sounds. Rectal exam: Not performed Extremities exam: No clubbing edema or cyanosis. Good pulses bilaterally. Psychiatric exam: Normal mood affect and normal mental status examination. Skin exam: Present: warm, dry, intact, pallor. No cyanosis. Neurologic: No gross focal neurologic deficits. - Labs CBC & Chem 7: 04/21/17 06:23 04/22/17 09:01 Labs: Abnormal Lab Results - Last 24 Hours (Table) 04/21/17 04/21/17 04/22/17 Range/Units 17:22 20:31 06:13 Sodium (137-145) mmol/L Chloride (98-107) mmol/L BUN (9-20) mg/dL Creatinine (0.66-1.25) mg/dL Glucose (74-99) mg/dL POC Glucose (mg/dL) 135 H 135 H 111 H (75-99) mg/dL 04/22/17 04/22/17 Range/Units 09:01 12:03 Sodium 148 H (137-145) mmol/L Chloride 115 H (98-107) mmol/L BUN 63 H (9-20) mg/dL Creatinine 3.24 H (0.66-1.25) mg/dL Glucose 102 H (74-99) mg/dL POC Glucose (mg/dL) 100 H (75-99) mg/dL Assessment and Plan Assessment: 1 acute upper GI bleeding, secondary to distal esophageal ulcer. Status post injection and Endo Clip placement. Remains on Protonix at 40 mg IV push every 12 hours. On 04/15/2017, the patient is still bleeding actively. NG tube is in place. He has been resuscitated with IV fluids and received a total of 4 L of IV fluid and 5 units of packed RBC. Awaiting EGD. Hemodynamically he is condition has gotten worse. He became progressively hypotensive and he had to be placed on pressors and currently is on 45 mics of norepinephrine infusion. He is being given IV fluids. His most recent hemoglobin is at 9.3. Currently is intubated on a mechanical ventilator. There is a obvious possibility that the patient have aspirated which put him in significant respiratory distress and acute hypoxic respiratory failure. As such the patient was intubated and placed on a mechanical ventilation. Post intubation chest x-ray shows no evidence of pneumonia. Blood gases shows adequate oxygenation. On 04/16/2017, patient does not have any active bleeding at present, patient seems to be doing well overall, remains on norepinephrine at 20 g which I plan to taper and hopefully discontinue today. Renal functioning seems to be getting worse hence a nephrology consult was initiated. In the meantime continue IV fluids, patient does have non-anion gap hyperchloremic metabolic acidosis. On 04/17/2017, patient had one episode of bleeding last night, not clear whether this is old blood or new active bleeding. Remains on mechanical ventilation, patient be given a trial of weaning/spontaneous breathing trial. Off propofol the patient was noted to be extremely appropriate. And he seems to be hemodynamically stable. On 04/18/2017, patient tolerated extubation well over the last 24 hours, relatively asymptomatic, has significant abnormal labs, these will be addressed by changing his IV fluids, and patient will be monitored in the ICU for the next 24 hours. On 04/19/2017, patient will remain on IV fluids to correct his slightly elevated sodium, his diet will be advanced, dopamine was discontinued, norepinephrine was discontinued, we will likely transfer to a monitor bed on selective today. On 04/20/2017, patient remains is off norepinephrine, off dopamine, hemodynamically stable, no further episodes of active GI bleeding noted, hence we'll transfer the patient today out of the ICU. On 04/21/2017, patient continues to do well, remains on antibiotics, bronchodilators, Protonix for his GI bleeding, will eventually need evaluation for possible rehab placement. We'll continue to follow. On 04/22/2017, patient continues to show steady improvement, except for the episode of confusion last night as noted by the . Today he is doing great, asymptomatic, and in no distress. 2 profound anemia secondary to GI related blood loss. Received a total of 7 units of packed RBCs since admission. 3 acute kidney injury, secondary to intravascular volume depletion. The patient 's creatinine is improving and the creatinine is now 3.24, being followed by nephrology. 4 acute hypoxic respiratory failure currently intubated on a mechanical ventilator, possible aspiration. Right lower lobe pneumonia suspected, patient is on Zosyn. 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 fib rhythm 11 thrombocytopenia 12 leukocytosis 13 acute hypernatremia, secondary to free water deficit. Patient remains on D5W IV fluid. Being addressed by nephrology on the case. Recommendation: Present supportive care measures, consider rehab placement in the next 24-48 hours, chest x-ray was ordered to be done in a.m. for follow-up on his effusion and consolidation in the right lower lobe. I suspect the patient may have aspirated during his GI bleeding. Time with Patient: Less than 30
[2017-04-22 17:02] LABS: Glucose,Whole Blood 161 mg/dL (75-99)
[2017-04-22 21:01] LABS: Glucose,Whole Blood 153 mg/dL (75-99)
[2017-04-23 05:41] LABS: Glucose,Whole Blood 119 mg/dL (75-99)
[2017-04-23 06:14] LABS: Anisocytosis Slight; Basophils % (A) 0 %; Calcium 8.8 mg/dL (8.4-10.2); Eosinophils # (A) 0.4 k/uL (0-0.7); Eosinophils % (A) 5 %; HCT 25.3 % (39.0-53.0); Hypochromasia Slight; Lymphocytes # (A) 0.7 k/uL (1.0-4.8); Lymphocytes % (A) 8 %; MCH 30.5 pg (25.0-35.0); MCHC 31.7 g/dL (31.0-37.0); MCV 96.3 fL (80.0-100.0); Macrocytosis Slight; Mean Platelet Volume 10.5; Monocytes # (A) 0.6 k/uL (0-1.0); Monocytes % (A) 7 %; Neutrophils # (A) 6.8 k/uL (1.3-7.7); Neutrophils % (A) 78 %; Platelet Count 125 k/uL (150-450); Poikilocytosis Slight; Potassium 3.9 mmol/L (3.5-5.1); RBC 2.62 m/uL (4.30-5.90); RDW 19.8 % (11.5-15.5); WBC 8.7 k/uL (3.8-10.6)
[2017-04-23] MEDS: INSULIN ASPART 100 UNIT/ML 1 ML 10 ML VIAL SQ SCH ×4 (06:18→21:23)
[2017-04-23] MEDS: DEXTROSE 5% IN WATER 1,000 ML IV SCH ×4 (06:19→08:29)
--- NOTE | 2017-04-23 06:52 | P.CONS ---
History of Present Illness - Chief Complaint Medical debility - History of Present Illness I had the opportunity to see patient for inpatient rehab consultation with regard to medical debility. He was admitted to [facility] April 14 with lower extremity edema and hematemesis. Seen by DrsTaqueria Caldwell and Bal for CHF , chronic kidney disease and atrial fibrillation. Seen by Dr. rider who did perform EGD and clips uncontrolled hematemesis. Chest x-rays followed for bilateral consolidations and infusions. PT reports performing bedside exercise only. OT and speech prescribed. Events functional history as elicited from patient: 89-year-old left-handed white male who is lives in one floor home with . Retired. Share the cooking. does the laundry and driving. Patient independent with sitdown shower, gait with roller walker. Denies tobacco but admits to an occasional glass of wine or beer. Dr. Perry is regular doctor. Review of Systems Review of systems: ENT: Denies sneezes or discharge. Eyes: Denies discharge or photophobia. Cardiac: Denies chest pain or palpitation. Pulmonary: Denies cough or shortness of breath. Gastrointestinal: Denies nausea, emesis, constipation, diarrhea. Genitourinary: Denies discharge or frequency. Musculoskeletal: Denies muscle or bone aches. Neurologic: Denies motor or sensory change. Endocrine: Denies shakes or sweats. Oncology: Denies cancers. Dermatologic: Denies rash, itching, pruritus. ALLERGY/immunology: Denies sneezes, rashes. Past Medical History Past Medical History: Atrial Fibrillation, Hypertension, Myocardial Infarction ( [place]) Additional Past Medical History / Comment(s): Chronic renal failure, chronic atrial fibrillation, hypertension, coronary artery disease and previous myocardial infarction, abdominal aortic and was in the has not appearance, atherosclerosis with peripheral vascular disease, COPD, dementia, BPH, hyperlipidemia, prostate cancer Last Myocardial Infarction Date:: 1996 History of Any Multi-Drug Resistant Organisms: None Reported Past Surgical History: Heart Catheterization, Tonsillectomy Additional Past Surgical History / Comment(s): Repair of abdominal aortic aneurysm, previous history of right femoral endarterectomy, Past Psychological History: No Psychological Hx Reported Smoking Status: Former smoker Past Alcohol Use History: Occasional Past Drug Use History: None Reported Medications and Allergies Home Medications Medication Instructions Recorded Confirmed Type Tamsulosin [Flomax] 0.4 mg PO DAILY 06/11/13 04/14/17 History Aspirin EC [Ecotrin Low Dose] 81 mg PO DAILY 04/14/17 04/14/17 History Atorvastatin [Lipitor] 80 mg PO DAILY 04/14/17 04/14/17 History Furosemide [Lasix] 40 mg PO DAILY 04/14/17 04/14/17 History Naproxen 500 mg PO BID PRN 04/14/17 04/14/17 History amLODIPine [Norvasc] 5 mg PO DAILY 04/14/17 04/14/17 History Allergies Allergy/AdvReac Type Severity Reaction Status Date / Time No Known Allergies Allergy Verified 04/14/17 10:35 Physical Exam Vitals: Vital Signs Temp Pulse Pulse Resp BP Pulse Ox 04/23/17 04:00 97.6 F 66 18 139/94 94 L 04/23/17 00:00 97.0 F L 100 18 150/87 94 L 04/22/17 21:19 90 04/22/17 21:10 90 04/22/17 20:00 97.2 F L 100 18 135/72 95 04/22/17 16:34 97.5 F L 98 18 130/60 93 L 04/22/17 14:58 84 04/22/17 14:49 80 04/22/17 12:23 97.7 F 74 16 129/63 97 04/22/17 09:00 97.6 F 64 18 123/66 97 04/22/17 08:33 80 04/22/17 08:21 76 Intake and Output 04/22/17 04/22/17 04/23/17 14:59 22:59 06:59 Intake Total 240 520 Output Total 726 900 Balance -486 520 -900 Intake: IV 400 Dextrose 5% in Water 1, 400 000 ml @ 50 mls/hr IV . Q20H [facility] Rx#:[id number] Oral 240 120 Output: Urine 725 900 Stool 1 Other: Voiding Method Indwelling Catheter Indwelling Catheter Indwelling Catheter Weight 94.5 kg Skin: Atrophic, intact. General: Medium to overweight build and comfortable appearance. Head: Normocephalic, atraumatic. Eyes: Symmetric. Pupils equal round. Ears: Symmetric. Hearing within normal limits. Mouth: Clear. Neck: Supple. Carotid without bruit. Cardiac: Regular rate and rhythm. Lungs: Clear anteriorly and posteriorly. Abdomen: Soft active nontender. Extremities: Normal tone. Neurological: Mental status: Alert, cooperative, pleasant. Cranial nerves: Symmetric facial tone and trapezius. Motor: Can elevate forelimbs off of bed but not entire limb. Sensation: Intact throughout. DTRs: Symmetric and equal throughout. Mobility: Bed mobility would require mild to moderate assistance. Results CBC & Chem 7: 04/23/17 05:20 04/23/17 05:20 Labs: Abnormal Lab Results - Last 24 Hours (Table) 04/22/17 04/22/17 04/22/17 Range/Units 09:01 12:03 16:56 RBC (4.30-5.90) m/uL Hgb (13.0-17.5) gm/dL Hct (39.0-53.0) % RDW (11.5-15.5) % Plt Count (150-450) k/uL Lymphocytes # (1.0-4.8) k/uL Sodium 148 H (137-145) mmol/L Chloride 115 H (98-107) mmol/L BUN 63 H (9-20) mg/dL Creatinine 3.24 H (0.66-1.25) mg/dL Glucose 102 H (74-99) mg/dL POC Glucose (mg/dL) 100 H 161 H (75-99) mg/dL 04/22/17 04/23/17 04/23/17 Range/Units 21:00 05:20 05:20 RBC 2.62 L (4.30-5.90) m/uL Hgb 8.0 L (13.0-17.5) gm/dL Hct 25.3 L (39.0-53.0) % RDW 19.8 H (11.5-15.5) % Plt Count 125 L (150-450) k/uL Lymphocytes # 0.7 L (1.0-4.8) k/uL Sodium 150 H (137-145) mmol/L Chloride 114 H (98-107) mmol/L BUN 58 H (9-20) mg/dL Creatinine 3.08 H (0.66-1.25) mg/dL Glucose 104 H (74-99) mg/dL POC Glucose (mg/dL) 153 H (75-99) mg/dL 04/23/17 Range/Units 05:40 RBC (4.30-5.90) m/uL Hgb (13.0-17.5) gm/dL Hct (39.0-53.0) % RDW (11.5-15.5) % Plt Count (150-450) k/uL Lymphocytes # (1.0-4.8) k/uL Sodium (137-145) mmol/L Chloride (98-107) mmol/L BUN (9-20) mg/dL Creatinine (0.66-1.25) mg/dL Glucose (74-99) mg/dL POC Glucose (mg/dL) 119 H (75-99) mg/dL Chest x-ray: report reviewed (Chest x-rays followed for bilateral consolidations and effusions.) Assessment and Plan (1) Acute upper GI bleed Current Visit: Yes Status: Acute Code(s): K92.2 - GASTROINTESTINAL HEMORRHAGE, UNSPECIFIED SNOMED Code(s): 82350051 (2) Gastrointestinal hemorrhage due to nonsteroidal antiinflammatory drug Current Visit: Yes Status: Acute Code(s): K92.2 - GASTROINTESTINAL HEMORRHAGE, UNSPECIFIED; T39.395A - ADVERSE EFFECT OF NONSTEROIDAL ANTI- INFLAMMATORY DRUGS, INIT SNOMED Code(s): 22642987 Plan: Impression: 1. Medical debility. 2. Acute GI bleed due to nonsteroidal anti-inflammatory. 3. Hypertension. 4. History of [place]. 5. Atrial fibrillation. 6. Congestive heart failure. 7. Lower extremity edema. Comments and plan: At this time PT ongoing by performing only bedside activity. OT and speech prescribed. Rehab prognosis currently guarded due to ability to tolerate only bedside range of motion activity.
[2017-04-23] MEDS: ALBUTEROL NEBULIZED 2.5 MG/3 ML INHALATION SCH ×5 (07:40→20:13)
[2017-04-23] MEDS: PANTOPRAZOLE 40 MG/10 ML VIAL IVP SCH ×2 (08:17→21:15)
[2017-04-23] MEDS: PIPERACILLIN-TAZOBACTAM 3.375 GM in DEXTROSE/WATER 1 50ML.BAG IVPB SCH ×2 (08:17→21:23)
--- NOTE | 2017-04-23 08:58 | XR ---
EXAMINATION TYPE: XR chest 1V portable DATE OF EXAM: 04/23/2017 COMPARISON: 04/20/2017 HISTORY: Shortness of breath TECHNIQUE: Single frontal view of the chest is obtained. FINDINGS: Persistent bilateral consolidation and pleural effusion. Central line noted. Arthropathy o f the shoulders with diffuse osteopenia. Atherosclerotic change aorta. No pneumothorax. IMPRESSION: Persistent bilateral consolidation and pleural effusion. Mild venous congestion not excl uded.
[2017-04-23 11:38] LABS: Glucose,Whole Blood 166 mg/dL (75-99)
--- NOTE | 2017-04-23 15:14 | P.PN ---
Subjective Progress Note Date: 04/23/17 Principal diagnosis: GI bleed Progress note dated 04/23/2017 89-year-old male with history of GI bleed secondary to esophageal ulcer. The patient status post injection and Endo Clip placement. In addition, the patient has a history of anemia acute kidney injury hypoxemic respiratory failure COPD peripheral vascular disease BPH coronary disease hyperlipidemia right bundle branch block thrombocytopenia and hypernatremia. The patient is a no code. Some more supportive measures include rehab placement possibility chest x-ray as well as current medications. The patient does seem a bit confused today. Apparently had an episode like this on the as well. No respiratory distress. No chest pain or chest discomfort. Hemoglobin is holding at around 8. Labs x-rays a medications are reviewed. Objective - Vital Signs Vital signs: Vital Signs Temp 97.4 F L 04/23/17 11:42 Pulse 88 04/23/17 13:08 Resp 22 04/23/17 11:42 BP 124/56 04/23/17 11:42 Pulse Ox 92 L 04/23/17 11:42 Intake & Output 04/22/17 04/23/17 04/23/17 18:59 06:59 18:59 Intake Total 360 400 120 Output Total 726 900 450 Balance -366 -500 -330 Weight 94.5 kg Intake: IV 400 Dextrose 5% in Water 1, 400 000 ml @ 70 mls/hr IV . [id number] [facility] Rx#:[id number] Oral 360 120 Output: Urine 725 900 450 Stool 1 Other: Voiding Method Indwelling Catheter Indwelling Catheter Indwelling Catheter - Exam No acute distress, oriented 2. HEENT examination is grossly unremarkable. Mucous membranes are dry. No oral lesions. Neck supple. Full range of motion. No adenopathy thyromegaly or neck vein distention. Cardiovascular examination reveals irregular rhythm rate. S1-S2 normal. No S3 or S4. Soft systolic murmur noted. Lungs reveal diminished breath sounds throughout both lung de la torre. Mostly at the bases. A few scattered bibasilar crackles. No rhonchi noted. Abdomen soft bowel sounds are heard. No masses or tenderness. Extremities are intact. No cyanosis clubbing or edema. Skin is without rash or lesion. Neurologic examination is brief but nonfocal. - Labs CBC & Chem 7: 04/23/17 05:20 04/23/17 05:20 Labs: Abnormal Lab Results - Last 24 Hours (Table) 04/22/17 04/22/17 04/23/17 Range/Units 16:56 21:00 05:20 RBC 2.62 L (4.30-5.90) m/uL Hgb 8.0 L (13.0-17.5) gm/dL Hct 25.3 L (39.0-53.0) % RDW 19.8 H (11.5-15.5) % Plt Count 125 L (150-450) k/uL Lymphocytes # 0.7 L (1.0-4.8) k/uL Sodium (137-145) mmol/L Chloride (98-107) mmol/L BUN (9-20) mg/dL Creatinine (0.66-1.25) mg/dL Glucose (74-99) mg/dL POC Glucose (mg/dL) 161 H 153 H (75-99) mg/dL 04/23/17 04/23/17 04/23/17 Range/Units 05:20 05:40 11:35 RBC (4.30-5.90) m/uL Hgb (13.0-17.5) gm/dL Hct (39.0-53.0) % RDW (11.5-15.5) % Plt Count (150-450) k/uL Lymphocytes # (1.0-4.8) k/uL Sodium 150 H (137-145) mmol/L Chloride 114 H (98-107) mmol/L BUN 58 H (9-20) mg/dL Creatinine 3.08 H (0.66-1.25) mg/dL Glucose 104 H (74-99) mg/dL POC Glucose (mg/dL) 119 H 166 H (75-99) mg/dL Assessment and Plan Assessment: Assessment Acute GI bleed secondary to distal esophageal ulcer. Status post injection and Endo Clip placement. Anemia, stable COPD Acute hypoxemic respiratory failure requiring intubation mechanical ventilation , recovered Peripheral vascular occlusive disease BPH CAD Hyperlipidemia Right bundle branch block Thrombocytopenia Hyponatremia Leukocytosis Plan: Plan dated 04/23/2017 The patient will continue with supportive measures. We'll consider rehab placement in next day or 2. Chest x-ray looks relatively stable. There is bilateral basilar infiltrates and/or small effusions. There is some consolidation in the right lower lobe. The patient continues to be relatively stable from hemoglobin standpoint. We'll continue to follow. Prognosis is guarded. He is a no code patient. Time with Patient: Less than 30
[2017-04-23 16:27] LABS: Glucose,Whole Blood 137 mg/dL (75-99)
[2017-04-23 20:55] LABS: Glucose,Whole Blood 180 mg/dL (75-99)
--- NOTE | 2017-04-23 22:55 | PN ---
PROGRESS NOTE CHIEF COMPLAINT: Status post hypovolemic shock from upper GI bleed and renal failure. HISTORY OF PRESENT ILLNESS: This patient continues to slowly improve. Creatinine is coming down very slowly approaching 3. He has had some discomfort in the coccyx area, but this seems to be bothering him less today. PHYSICAL EXAM: Chest is fairly clear, still occasional rhonchi. The cardiac exam is normal. The abdomen is soft and nontender. IMPRESSION: 1. Status post upper gastrointestinal hemorrhage with hypovolemic shock. 2. General debility. 3. Stage I sacral decubitus. PLAN: Work on discharge planning, likely to [facility]. He is not a [facility]. MMODL / IJN: [id number] /
--- NOTE | 2017-04-23 23:01 | PN ---
PROGRESS NOTE The patient is seen for followup for acute kidney injury and hypernatremia. He is maintained on D5W. This morning, serum sodium was worse. He has had weeping from his extremities, but he has not been short of breath. PHYSICAL EXAMINATION: Blood pressure was 137/80, heart rate 90 per minute. He is afebrile. Examination of the heart S1, S2. Examination of the lungs, bilateral breath sounds are heard. Abdomen is soft, nontender. Examination of the lower extremities shows edema 3+ upper and lower extremities with some weeping noted. Abdomen is soft, nontender. 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 LABS: Sodium 150, potassium 3.9, chloride 114, BUN 58, serum creatinine 3.08, hemoglobin 8.0 g/dL. ASSESSMENT: 1. Acute kidney injury. Renal function currently stable with creatinine staying at about 3. Etiology was ischemic acute tubular necrosis, currently nonoliguric. 2. Hypernatremia associated with free water deficit, currently maintained on D5W. I will increase it to 70 mL an hour and then discontinue it in 4 hours. Patient is again encouraged to increase his free water intake orally. 3. Status post vent dependent respiratory failure. 4. Gastrointestinal bleed, status post EGD, which showed distal esophageal ulcer, status post injection and Endoclip placement. PLAN: Continue to encourage free water intake. The patient will need repeat labs to be done as an outpatient if he is discharged. MARIXA / TRINITY: [id number] /
--- NOTE | 2017-04-23 23:01 | PN ---
PROGRESS NOTE DATE OF SERVICE: 04/22/2017. CHIEF COMPLAINT: Status post upper GI bleed, hypovolemic shock and blood loss anemia. HISTORY OF PRESENT ILLNESS: This patient is fairly stable and is improving. He has been complaining of pain over the coccyx and he has an early pressure sore, which is stage I. PHYSICAL EXAM: Unchanged and he seems to be slowly improving. He is being evaluated for the [facility]. IMPRESSION: Status post upper gastrointestinal hemorrhage with hypovolemic shock and acute tubular necrosis. PLAN: Start to progress towards discharge into a rehab center. MMODL / IJN: [id number] /
[2017-04-24 06:27] LABS: Glucose,Whole Blood 99 mg/dL (75-99)
[2017-04-24] MEDS: INSULIN ASPART 100 UNIT/ML 1 ML 10 ML VIAL SQ SCH ×4 (06:37→21:33)
[2017-04-24] MEDS: ALBUTEROL NEBULIZED 2.5 MG/3 ML INHALATION SCH ×4 (07:59→19:23)
[2017-04-24] MEDS: PIPERACILLIN-TAZOBACTAM 3.375 GM in DEXTROSE/WATER 1 50ML.BAG IVPB SCH ×2 (09:03→21:38)
[2017-04-24] MEDS: PANTOPRAZOLE 40 MG/10 ML VIAL IVP SCH ×2 (09:03→21:33)
[2017-04-24 12:10] LABS: Glucose,Whole Blood 102 mg/dL (75-99)
--- NOTE | 2017-04-24 13:07 | FL ---
EXAMINATION TYPE: FL barium swallow w video DATE OF EXAM: 04/24/2017 MODIFIED SWALLOW / DEGLUTITION STUDY CLINICAL HISTORY: Dysphagia. Trouble swallowing. TECHNIQUE: Deglutition study is performed utilizing thin liquid barium only. A total of 67 seconds o f fluoroscopic time was utilized during procedure. Approximately 6 cine sequences were acquired. No i mages or saved to PACS. COMPARISON: None. FINDINGS: The oral and pharyngeal phases show satisfactory initiation with thin liquid barium drinkin g through a straw, without straw, and utilizing chin tuck procedure. There is deep penetration withou t lilia aspiration despite several drinking attempts. There is poor epiglottis inversion noted. Mild pharyngeal residue was appreciated. IMPRESSION: Deep penetration without lilia aspiration with thin liquid barium. Please refer to speech therapist notes for further details if necessary.
--- NOTE | 2017-04-24 13:18 | P.PN ---
Subjective Progress Note Date: 04/24/17 Principal diagnosis: GI bleed Progress note dated 04/23/2017 89-year-old male with history of GI bleed secondary to esophageal ulcer. The patient status post injection and Endo Clip placement. In addition, the patient has a history of anemia acute kidney injury hypoxemic respiratory failure COPD peripheral vascular disease BPH coronary disease hyperlipidemia right bundle branch block thrombocytopenia and hypernatremia. The patient is a no code. Some more supportive measures include rehab placement possibility chest x-ray as well as current medications. The patient does seem a bit confused today. Apparently had an episode like this on the as well. No respiratory distress. No chest pain or chest discomfort. Hemoglobin is holding at around 8. Labs x-rays a medications are reviewed. Progress note dated 04/24/2017 89-year-old DO NOT RESUSCITATE patient history of GI bleed secondary to esophageal ulcer. The patient status post injection and Endo Clip placement. In addition, the patient has a history of anemia acute kidney injury hypoxemic respiratory failure COPD peripheral vascular disease BPH coronary disease hyperlipidemia right bundle branch block thrombocytopenia and hypernatremia. The patient seems relatively stable although overall prognosis is not good. The patient down is a bit more alert today than he was yesterday. No respiratory distress. Appears to have no specific complaints. Hemoglobin is relatively stable. Objective - Vital Signs Vital signs: Vital Signs Temp 96.7 F L 04/24/17 11:47 Pulse 100 04/24/17 12:15 Resp 20 04/24/17 11:47 BP 127/70 04/24/17 11:47 Pulse Ox 92 L 04/24/17 11:47 Intake & Output 04/23/17 04/24/17 04/24/17 18:59 06:59 18:59 Intake Total 780 500 240 Output Total 450 800 650 Balance 330 -300 -410 Weight 93 kg Intake: IV 420 210 Dextrose 5% in Water 1, 420 210 000 ml @ 70 mls/hr IV . [id number] [facility] Rx#:[id number] Intake, IV Titration 50 Amount Piperacillin-Tazobactam 3 50 .375 gm In Dextrose/Water 1 50ml.bag @ 12.5 mls/hr IVPB Q12HR [facility] Rx#: [id number] Oral 360 240 240 Output: Urine 450 800 650 Other: Voiding Method Indwelling Catheter Indwelling Catheter # Voids 1 # Bowel Movements 1 1 - Exam No acute distress, oriented 2. HEENT examination is grossly unremarkable. Mucous membranes are dry. No oral lesions. Neck supple. Full range of motion. No adenopathy thyromegaly or neck vein distention. Cardiovascular examination reveals irregular rhythm rate. S1-S2 normal. No S3 or S4. Soft systolic murmur noted. Lungs reveal diminished breath sounds throughout both lung de la torre. Mostly at the bases. A few scattered bibasilar crackles. No rhonchi noted. Abdomen soft bowel sounds are heard. No masses or tenderness. Extremities are intact. No cyanosis clubbing or edema. Skin is without rash or lesion. Neurologic examination is brief but nonfocal. - Labs CBC & Chem 7: 04/23/17 05:20 04/23/17 05:20 Labs: Abnormal Lab Results - Last 24 Hours (Table) 04/23/17 04/23/17 04/24/17 Range/Units 16:21 20:51 12:04 POC Glucose (mg/dL) 137 H 180 H 102 H (75-99) mg/dL Assessment and Plan Assessment: Assessment Acute GI bleed secondary to distal esophageal ulcer. Status post injection and Endo Clip placement. Anemia, stable COPD Acute hypoxemic respiratory failure requiring intubation mechanical ventilation , recovered Peripheral vascular occlusive disease BPH CAD Hyperlipidemia Right bundle branch block Thrombocytopenia Hyponatremia Leukocytosis Plan: Plan dated 04/23/2017 The patient will continue with supportive measures. We'll consider rehab placement in next day or 2. Chest x-ray looks relatively stable. There is bilateral basilar infiltrates and/or small effusions. There is some consolidation in the right lower lobe. The patient continues to be relatively stable from hemoglobin standpoint. We'll continue to follow. Prognosis is guarded. He is a no code patient. Plan dated 04/24/2017. We'll continue with supportive measures. Patient might be discharged to rehab facility within the next 24-48 hours. Chest x-ray looks relatively stable. It does show some basilar infiltrates and/or atelectasis. There also may be some small effusions. Pulmonary status is stable. Labs and x-rays are reviewed. Medications are reviewed. No additional comments at this time. Time with Patient: Less than 30
[2017-04-24 14:15] VITALS: BMI 31.1
[2017-04-24 17:08] LABS: Glucose,Whole Blood 144 mg/dL (75-99)
--- NOTE | 2017-04-24 17:41 | PN ---
PROGRESS NOTE The patient is seen for followup for acute kidney injury and hypernatremia. The patient has been encouraged to increase his free water intake. He has been hungry and has had good oral intake. There were no labs from today. Serum sodium was 150 from yesterday. Hemoglobin was 8.0 g/dL. EXAMINATION: Blood pressure is 132/66 this morning, heart rate 100 per minute. Patient is afebrile. Examination of the heart: S1, S2. Examination lungs: Bilateral breath sounds are heard. Decreased breath sounds at bases. Abdomen is soft, nontender. Examination lower extremity shows chronic skin changes, chronic edema. No focal deficits seen. Labs are not available from today. ASSESSMENT: 1. Acute kidney injury, acute tubular necrosis. Renal function fairly stabilized with creatinine staying at about 3 mg/dL. Mainly ischemic acute tubular necrosis. 2. Hypernatremia associated with free water deficit, status post D5W. Repeat labs in a.m. if the patient is not discharged and if he is discharged, we need to follow up in about 2 days time with repeat labs. 3. Status post vent dependent respiratory failure. 4. Gastrointestinal bleed status post EGD and in injection and Endoclip placement for a distal esophageal ulcer. 5. Generalized debility. PLAN: Check labs tomorrow if the patient is not discharged. Continue to encourage increased free water intake and continue off of D5W for now. MMODL / IJN: [id number] /
[2017-04-24 21:16] LABS: Glucose,Whole Blood 141 mg/dL (75-99)
[2017-04-25 05:50] LABS: Glucose,Whole Blood 161 mg/dL (75-99)
[2017-04-25] MEDS: INSULIN ASPART 100 UNIT/ML 1 ML 10 ML VIAL SQ SCH ×2 (06:43→12:31)
[2017-04-25 07:05] LABS: Potassium 3.6 mmol/L (3.5-5.1)
[2017-04-25 08:02] VITALS: RESP 20
[2017-04-25] MEDS: PIPERACILLIN-TAZOBACTAM 3.375 GM in DEXTROSE/WATER 1 50ML.BAG IVPB SCH (08:03)
[2017-04-25] MEDS: PANTOPRAZOLE 40 MG/10 ML VIAL IVP SCH (08:04)
[2017-04-25] MEDS: ALBUTEROL NEBULIZED 2.5 MG/3 ML INHALATION SCH ×2 (09:22→12:07)
[2017-04-25 10:59] VITALS: TEMP 97
[2017-04-25 11:51] LABS: Glucose,Whole Blood 115 mg/dL (75-99)
[2017-04-25 12:31] VITALS: BP 141/80; PULSE 81
--- NOTE | 2017-04-25 13:49 | P.PN ---
Subjective Progress Note Date: 04/25/17 Principal diagnosis: GI bleed Progress note dated 04/23/2017 89-year-old male with history of GI bleed secondary to esophageal ulcer. The patient status post injection and Endo Clip placement. In addition, the patient has a history of anemia acute kidney injury hypoxemic respiratory failure COPD peripheral vascular disease BPH coronary disease hyperlipidemia right bundle branch block thrombocytopenia and hypernatremia. The patient is a no code. Some more supportive measures include rehab placement possibility chest x-ray as well as current medications. The patient does seem a bit confused today. Apparently had an episode like this on the as well. No respiratory distress. No chest pain or chest discomfort. Hemoglobin is holding at around 8. Labs x-rays a medications are reviewed. Progress note dated 04/24/2017 89-year-old DO NOT RESUSCITATE patient history of GI bleed secondary to esophageal ulcer. The patient status post injection and Endo Clip placement. In addition, the patient has a history of anemia acute kidney injury hypoxemic respiratory failure COPD peripheral vascular disease BPH coronary disease hyperlipidemia right bundle branch block thrombocytopenia and hypernatremia. The patient seems relatively stable although overall prognosis is not good. The patient down is a bit more alert today than he was yesterday. No respiratory distress. Appears to have no specific complaints. Hemoglobin is relatively stable. Progress note dated 04/25/2017 89-year-old patient who has a no code designation. The patient has a history of GI bleed secondary to esophageal ulcer. He apparently received 7 units of blood. The patient be discharged to [facility]. He status post injection and Endo Clip placement. In addition to this, he has anemia secondary to blood loss, acute kidney injury, hypoxemic respiratory failure, COPD, peripheral vascular occlusive disease, BPH, CAD, hyperlipidemia, right bundle branch block, thrombocytopenia and hypernatremia. The patient's color is a little pale. He does look good though. Again he is going to [facility] for rehab. His is with him in the room. He denies any pain shortness of breath coughing wheezing or bleeding. Objective - Vital Signs Vital signs: Vital Signs Temp 97 F L 04/25/17 10:58 Pulse 81 04/25/17 12:30 Resp 20 04/25/17 11:51 BP 141/80 04/25/17 12:30 Pulse Ox 93 L 04/25/17 11:08 Intake & Output 04/24/17 04/25/17 04/25/17 18:59 06:59 18:59 Intake Total 410 230 240 Output Total 650 1 175 Balance -240 229 65 Weight 93 kg 95 kg Intake: Intake, IV Titration 50 50 Amount Piperacillin-Tazobactam 3 50 50 .375 gm In Dextrose/Water 1 50ml.bag @ 12.5 mls/hr IVPB Q12HR [facility] Rx#: [id number] Oral 360 180 240 Output: Urine 650 175 Stool 1 Other: Voiding Method Indwelling Catheter Diaper # Voids 1 1 1 # Bowel Movements 1 1 - Exam No acute distress, oriented 2. His color is pale. HEENT examination is grossly unremarkable. Mucous membranes are dry. No oral lesions. Neck supple. Full range of motion. No adenopathy thyromegaly or neck vein distention. Cardiovascular examination reveals irregular rhythm rate. S1-S2 normal. No S3 or S4. Soft systolic murmur noted. Lungs reveal diminished breath sounds throughout both lung de la torre. Mostly at the bases. A few scattered bibasilar crackles. No rhonchi noted. Abdomen soft bowel sounds are heard. No masses or tenderness. Extremities are intact. No cyanosis clubbing or edema. Skin is without rash or lesion. Neurologic examination is brief but nonfocal. - Labs CBC & Chem 7: 04/23/17 05:20 04/25/17 05:52 Labs: Abnormal Lab Results - Last 24 Hours (Table) 04/24/17 04/24/17 04/25/17 Range/Units 17:06 21:07 05:47 Sodium (137-145) mmol/L Chloride (98-107) mmol/L BUN (9-20) mg/dL Creatinine (0.66-1.25) mg/dL POC Glucose (mg/dL) 144 H 141 H 161 H (75-99) mg/dL 04/25/17 04/25/17 Range/Units 05:52 11:23 Sodium 147 H (137-145) mmol/L Chloride 113 H (98-107) mmol/L BUN 43 H (9-20) mg/dL Creatinine 2.80 H (0.66-1.25) mg/dL POC Glucose (mg/dL) 115 H (75-99) mg/dL Assessment and Plan Assessment: Assessment Acute GI bleed secondary to distal esophageal ulcer. Status post injection and Endo Clip placement. Anemia, stable COPD Acute hypoxemic respiratory failure requiring intubation mechanical ventilation , recovered Peripheral vascular occlusive disease BPH CAD Hyperlipidemia Right bundle branch block Thrombocytopenia Hyponatremia Leukocytosis Plan: Plan dated 04/23/2017 The patient will continue with supportive measures. We'll consider rehab placement in next day or 2. Chest x-ray looks relatively stable. There is bilateral basilar infiltrates and/or small effusions. There is some consolidation in the right lower lobe. The patient continues to be relatively stable from hemoglobin standpoint. We'll continue to follow. Prognosis is guarded. He is a no code patient. Plan dated 04/24/2017. We'll continue with supportive measures. Patient might be discharged to rehab facility within the next 24-48 hours. Chest x-ray looks relatively stable. It does show some basilar infiltrates and/or atelectasis. There also may be some small effusions. Pulmonary status is stable. Labs and x-rays are reviewed. Medications are reviewed. No additional comments at this time. Plan dated 04/25/2017 The patient will continue with supportive measures. The patient has not required any blood transfusions recently. He may or may not be discharged to a nursing facility such as [facility]. Complaining to do this in next day or so. Chest x-ray stable. The some bibasilar atelectasis. Pulmonary status is stable. No pain. No chest complaints. All in all, the patient's doing reasonably well. Time with Patient: Less than 30
--- NOTE | 2017-04-25 20:00 | DS ---
DISCHARGE SUMMARY CHIEF COMPLAINT: Upper GI bleed. HISTORY OF PRESENT ILLNESS AND PHYSICAL EXAM: Details of this man's history and physical can be found in the initial workup. LABORATORY STUDIES: While he was in the hospital he had laboratory studies, details which can be found in the laboratory section of his chart. COURSE IN HOSPITAL: After admission, he was placed on bedrest, started on intravenous fluids and placed in ICU. He continued to have massive bleeding and became hypovolemic and went into hypovolemic shock. He was seen and managed by Gastroenterology and Intensive Medicine. He required numerous units of blood and wound up in endoscopy, was found to have a gastroesophageal junction ulcer. He had chronic renal failure and developed secondary acute tubular necrosis with a significant rise in his creatinine. He was referred to Med Renal. He did eventually stabilize and was slowly able to be taken off the ventilator. The balance of his hospitalization was spent in trying to rehab him, which was difficult due to fact he was not very ambulatory in the first place. His BUN and creatinine were slowly improving and it was determined that he should receive post hospitalization physical therapy. He was turned down at [facility] and arrangements were made for him at [facility] on the . FINAL DIAGNOSES: 1. Upper gastrointestinal hemorrhage. 2. Gastroesophageal junction ulcer. 3. Blood loss anemia. 4. Hypovolemic shock. 5. Chronic renal failure. 6. Acute tubular necrosis. 7. Stage I sacral decubitus. OPERATIONS: Endoscopy. CONSULTATIONS: Intensive medicine, Gastroenterology, Med Renal. He is improved. MMODL / IJN: [id number] /
--- NOTE | 2017-04-25 22:00 | PN ---
PROGRESS NOTE Patient is seen for followup for acute kidney injury and hypernatremia. He is currently lying in bed. He is easily arousable. He is not in any acute distress. Blood pressure this morning was 157/97, heart rate of 70 per minute. Patient is afebrile. EXAMINATION OF THE HEART: S1, S2. EXAMINATION OF LUNGS: Bilateral breath sounds are heard. ABDOMEN: Soft, non-tender. Examination of lower extremities shows edema with weeping in the upper and lower extremities. FUR STRETCHER exam is grossly intact. Labs show sodium 147, potassium 3.6, BUN 43, serum creatinine 2.80. ASSESSMENT: 1. Acute kidney injury, acute tubular necrosis, currently nonoliguric and improving. 2. Hypernatremia associated with free water deficit currently. Encouraged to continue to increase free water. Patient is off of D5W. 3. Status post respiratory failure. Patient had been on the vent. PLAN: Patient is stable for discharge from nephrology standpoint. Continue to maintain increased free water intake. Can use Lasix as needed as outpatient. MMODL / IJN: [id number] /
--- NOTE | 2017-04-26 13:25 | PN ---
PROGRESS NOTE DATE OF SERVICE: 04/24/17 CHIEF COMPLAINT: Status post GI blood loss, hypovolemic shock and renal failure. HISTORY OF PRESENT ILLNESS: This gentleman is stable there has been no interval change. We are waiting to see if he is accepted into rehab at [facility]. There is an indication that he may not be. In that event, we will try to discharge him to [facility]. PHYSICAL EXAM: He is oriented and alert. He remains pale. Chest is quite clear. Cardiac exam is normal. Abdomen is soft, nontender. IMPRESSION: Status post upper gastrointestinal hemorrhage with hypovolemic shock and blood loss anemia and secondary acute tubular necrosis. PLAN: Continue to work on a discharge plan. MMODL / IJN: [id number] /
--- NOTE | 2017-04-26 13:28 | PN ---
PROGRESS NOTE DATE OF SERVICE: 04/23/17 CHIEF COMPLAINT: Hypovolemic shock and renal failure with blood loss anemia. HISTORY OF PRESENT ILLNESS: The patient is stable and doing well. His creatinine is inching down each day. He has been referred for possible placement in rehab program at [facility]. PHYSICAL EXAM: Unchanged. He remains alert, but weak. He is pale. Chest is clear. The abdomen is soft, nontender. Cardiac exam is normal. IMPRESSION: 1. Status post upper gastrointestinal hemorrhage from gastroesophageal junction hernia with blood loss and anemia and shock. 2. Acute tubular necrosis on top of chronic renal failure. PLAN: Await determination regarding discharge. MMODL / IJN: [id number] /
== END 2017-04-25 15:48 | DRG 380 ==
LOC: EC 08:56 → 6ICU 10:28 → 6SEL 04-20 13:55
PROVIDERS: ADMIT Family Medicine; ATTEND Family Medicine
PROC: 30233N1 Transfusion of Nonautologous Red Blood Cells into Peripheral Vein, Percutaneous Approach (ICD-10-PCS; 2017-04-14)
PROC: 5A1945Z Respiratory Ventilation, 24-96 Consecutive Hours (ICD-10-PCS; 2017-04-15)
PROC: 0BH17EZ Insertion of Endotracheal Airway into Trachea, Via Natural or Artificial Opening (ICD-10-PCS; 2017-04-15)
PROC: 0W3P8ZZ Control Bleeding in Gastrointestinal Tract, Via Natural or Artificial Opening Endoscopic (ICD-10-PCS; principal; 2017-04-15 08:21)
PROC: 02HV33Z Insertion of Infusion Device into Superior Vena Cava, Percutaneous Approach (ICD-10-PCS; 2017-04-15 08:21)
DX: K22.11 Ulcer of esophagus with bleeding (principal); J96.01 Acute respiratory failure with hypoxia; N17.0 Acute kidney failure with tubular necrosis; L89.151 Pressure ulcer of sacral region, stage 1; R57.8 Other shock; R57.1 Hypovolemic shock; I13.0 Hypertensive heart and chronic kidney disease with heart failure and stage 1 through stage 4 chronic kidney disease, or unspecified chronic kidney disease; E87.0 Hyperosmolality and hypernatremia; E87.2 Acidosis; D69.6 Thrombocytopenia, unspecified; D62 Acute posthemorrhagic anemia; E87.1 Hypo-osmolality and hyponatremia; I50.9 Heart failure, unspecified; N18.3 Chronic kidney disease, stage 3 (moderate); Z66 Do not resuscitate; K44.9 Diaphragmatic hernia without obstruction or gangrene; E78.5 Hyperlipidemia, unspecified; E87.6 Hypokalemia; I48.2 Chronic atrial fibrillation; I70.209 Unspecified atherosclerosis of native arteries of extremities, unspecified extremity; N40.0 Benign prostatic hyperplasia without lower urinary tract symptoms; I25.10 Atherosclerotic heart disease of native coronary artery without angina pectoris; R53.81 Other malaise; R62.7 Adult failure to thrive; I45.10 Unspecified right bundle-branch block; J44.9 Chronic obstructive pulmonary disease, unspecified; F03.90 Unspecified dementia, unspecified severity, without behavioral disturbance, psychotic disturbance, mood disturbance, and anxiety; T39.395A Adverse effect of other nonsteroidal anti-inflammatory drugs [NSAID], initial encounter; I25.2 Old myocardial infarction; Z79.82 Long term (current) use of aspirin; Z79.899 Other long term (current) drug therapy; Z85.46 Personal history of malignant neoplasm of prostate; Z87.891 Personal history of nicotine dependence; Z98.890 Other specified postprocedural states
CPT/HCPCS: 36415; 36600; 43243; 43255; 71045; 74230; 80048; 80053; 82272; 82550; 82553; 82805; 83036; 83605; 83690; 83735; 84100; 84295; 84484; 85025; 85027; 85610; 85730; 86850; 86900; 86901; 86920; 87070; 87205; 93005; 94002; 94003; 94640; 94760; 96360; 96361; 96374; 96375; 99291; 99292